=== PATIENT | male | born 1950 | race Caucasian/White ===

== ENCOUNTER → 2023-02-06 | Outpatient (CLI) | payer MEDICARE, OTHER, SELFPAY ==
[2023-02-06 12:13] LABS: Thyroid Stim Hormone (TSH) 1.95 uIU/mL (0.358-3.74)
== END | disposition home or self-care (01) ==
LOC: LAB 10:49
PROVIDERS: Referring Provider Internal Medicine Cardiovascular Disease; Visit Provider Internal Medicine Cardiovascular Disease
DX: R00.1 Bradycardia, unspecified (principal); I48.91 Unspecified atrial fibrillation; R94.31 Abnormal electrocardiogram [ECG] [EKG]
CPT/HCPCS: 36415; 84443

== ENCOUNTER → 2023-03-09 | Outpatient (CLI) | payer MEDICARE, OTHER, SELFPAY ==
--- NOTE | 2023-03-09 06:44 | ECHOD_ITS ---
Reason For Study: Abnormal EKG Procedure This was a 2D Doppler, Color Flow transthoracic echocardiogram. Exam performed in department. Left Ventricle Normal LV size. Left ventricular systolic function is normal. The estimated ejection fraction is 60 %. Unable to assess diastolic dysfunction due to arrhythmia. No regional wall motion abnormalities noted. Right Ventricle Normal RV size. Normal systolic function. Atria There is moderate biatrial dilatation. Bubble contrast study negative for right to left interatrial shunt. Mitral Valve Mild (1+) mitral valve insufficiency. Tricuspid Valve Normal tricuspid valve. Mild to moderate (1-2+) tricuspid valve insufficiency. Normal pulmonary artery pressure. Aortic Valve Trisinus/trileaflet aortic valve. Mild diffuse aortic valve thickening. There is no aortic stenosis. Pulmonic Valve The pulmonic valve is not well visualized. Great Vessels Normal aortic root. Pericardium/Pleural No pericardial effusion. Medication 22 gauge I.V. with prn adaptor inserted into right arm. Performed a rapid injection of agitated mix of 9 cc saline and 1cc air to assess for atrial septal defect. MMode/2D Measurements & Calculations LVIDd: 4.3 cm IVSd: 0.97 cm Ao root diam: 3.2 cm LVIDs: 2.7 cm LVPWd: 1.00 cm LA dimension: 3.8 cm RVDd: 3.4 cm FS: 37.9 % LAV(MOD-bp): 84.0 ml LVAd ap4: 29.0 cm2 SV(MOD-sp4): 51.4 ml LAV(MOD-bp) Indexed: 42.7 ml/m2 LVLd ap4: 8.0 cm LAV(MOD-sp2): 90.9 ml EDV(MOD-sp4): 84.9 ml LAV(MOD-sp4): 70.8 ml EDV(sp4-el): 89.9 ml LVAs ap4: 16.6 cm2 LVLs ap4: 6.8 cm ESV(MOD-sp4): 33.5 ml ESV(sp4-el): 34.5 ml EF(MOD-sp4): 60.5 % EF(sp4-el): 61.7 % SV(sp4-el): 55.4 ml LA A4 area: 23.7 cm2 RA A4 area: 21.7 cm2 TAPSE: 1.6 cm Time Measurements MV dec time: 0.16 sec Doppler Measurements & Calculations MV E max emmett: 83.0 cm/sec Lat Peak E' Emmett: 11.3 cm/sec Med Peak E' Emmett: 10.5 cm/sec MV A max emmett: 23.5 cm/sec E/E' lat: 7.3 E/E' med: 7.9 MV E/A: 3.5 MV V2 max: 85.5 cm/sec MV P1/2t max emmett: 82.4 cm/sec Ao V2 max: 91.4 cm/sec MV max P.9 mmHg MV P1/2t: 57.3 msec Ao max P.3 mmHg MV V2 mean: 36.2 cm/sec Ao V2 mean: 64.8 cm/sec MV mean P.73 mmHg MV dec slope: 421.3 cm/sec2 Ao mean P.9 mmHg MV V2 VTI: 24.8 cm MVA(P1/2t): 3.8 cm2 Ao V2 VTI: 22.5 cm AV (velocity ratio): 0.76 LV V1 max: 75.1 cm/sec PA V2 max: 52.9 cm/sec TR max emmett: 198.6 cm/sec LV V1 max P.3 mmHg TR max P.8 mmHg LV V1 mean P.2 mmHg LV V1 mean: 50.4 cm/sec LV V1 VTI: 17.0 cm ECHO/Echo Complete Interpretation Summary The estimated ejection fraction is 60 %. Mild (1+) mitral valve insufficiency. Bubble contrast study negative for right to left interatrial shunt. There is moderate biatrial dilatation. Mild to moderate (1-2+) tricuspid valve insufficiency. Ordering Physician: Khoa Goldstein Referring Physician: Khoa Goldstein Performed By: Rishabh Kelly RCS
--- NOTE | 2023-03-13 15:47 | STRESSREP ---
Stress Test Report Date: 03/09/2023 Procedure: Exercise tolerance test/imaging study Indications: Abnormal ECG Consent: Per the patient Procedure: The patient exercised on a Prabhjot protocol for 8 minutes and 30 seconds achieving a peak heart rate of 171 bpm (116% predicted maximal heart rate) with a peak blood pressure 138/80 mmHg and a peak MET capacity of 10.4 METs. The baseline ECG demonstrated atrial fibrillation. The peak exercise ECG demonstrated no ischemic changes. The functional capacity was considered good. There was no complaint of chest discomfort during exercise or recovery. The examination was discontinued secondary to target heart rate being achieved. The patient was injected with 11.7 mCi of technetium 99m Cardiolite and subsequently rest SPECT Cardiolite nuclear imaging was obtained in the horizontal long, vertical long, and short axis views. Post-exercise, the patient was injected with 34.2 mCi of technetium 99m Cardiolite and subsequently stress SPECT Cardiolite nuclear imaging was obtained in the horizontal long, vertical long, and short axis views. A gated Cardiolite study at peak stress was obtained. Rest and stress SPECT Cardiolite nuclear imaging status post realignment, normalization, and attenuation correction, demonstrates a mild inferior and apical reversible defect. There is end systolic thickening and brightening. The gated Cardiolite study demonstrates myocardial thickening and inward wall motion. The reported LVEF is 57%. Impression: 1. Technically adequate (percent predicted maximal heart rate greater than 85%) exercise tolerance test 2. Peak exercise ECG with no ischemic changes 3. Rest and stress SPECT Cardiolite nuclear imaging demonstrate possible mild inferior and apical ischemia. 5. The gated Cardiolite study reports an LVEF of 57%. This note was generated with [employer] software. It may contain incorrect words, spelling, and punctuation that were not noted in checking the note before signing.
== END | disposition home or self-care (01) ==
LOC: CVS 06:42
PROVIDERS: Referring Provider Internal Medicine Cardiovascular Disease; Visit Provider Internal Medicine Cardiovascular Disease
DX: R94.31 Abnormal electrocardiogram [ECG] [EKG] (principal); I48.91 Unspecified atrial fibrillation; R00.1 Bradycardia, unspecified
CPT/HCPCS: 78452; 93017; 93306; A9500; A4216

== ENCOUNTER → 2023-04-10 | Outpatient (CLI) | payer MEDICARE, OTHER, SELFPAY ==
[2023-04-10 08:47] LABS: Cholesterol 176 mg/dL (200); High Density Lipoprotein 67 mg/dL; Triglycerides 73 mg/dL; Very Low Density Lipoprotein 15 mg/dL (5-40)
== END | disposition home or self-care (01) ==
LOC: LAB 07:47
PROVIDERS: Referring Provider Internal Medicine Cardiovascular Disease; Visit Provider Internal Medicine Cardiovascular Disease
DX: E78.5 Hyperlipidemia, unspecified (principal)
CPT/HCPCS: 36415; 80061

== ENCOUNTER → 2023-05-30 | Outpatient (CLI) | payer MEDICARE, OTHER, SELFPAY | END | disposition home or self-care (01) | LOC: SL 19:41 | PROVIDERS: Referring Provider Nurse Practitioner Family; Visit Provider Nurse Practitioner Family | DX: G47.10 Hypersomnia, unspecified (principal); I48.91 Unspecified atrial fibrillation; I34.0 Nonrheumatic mitral (valve) insufficiency; I07.1 Rheumatic tricuspid insufficiency | CPT/HCPCS: 95810 ==

== ENCOUNTER 2023-06-26 08:10 | Day surgery (SDC) | payer MEDICARE, OTHER, SELFPAY ==
--- NOTE | 2023-06-08 12:50 | PCM.HP.BLA ---
History and Physical Date of Admission: 06/26/23 This patient is here for Left heart catheterization. He continues to ride his bicycle 3 times a week, riding for 45 miles each time. He denies chest, arm, jaw, or neck discomfort. He denies palpitations. He denies bilateral lower extremity edema. He denies claudication. He states shortness of breath with activity such as increased exertion. He denies shortness of breath at rest, orthopnea, or PND. He denies chronic cough. He denies significant, sudden weight gain. He denies lightheadedness, dizziness, near-syncope, or syncope. He denies blood in urine, blood in stool, or epistaxis. He denies fever with chills. He denies myalgia. He denies fatigue. His exercise level has remained stable. Intake Vital Signs: See EMR Intake Visit Reasons: [facility] Card Painter Required: No Is patient in pain?: No Allergies No Known Allergies Allergy (Unverified 05/11/23 16:04) Medications See EMR [facility] Medical History Abnormal EKG Atrial fibrillation Bradycardia Irregular heart beat Pneumonia due to COVID-19 virus Surgical History History of colonoscopy Family History Mother Myocardial infarction, Onset Age: 86 Social History Smoking Status: Never smoker alcohol intake: never substance use type: does not use caffeine: Yes (occasionally) ROS Const Const: Positive for daytime sleepiness (2-3 naps per day) and other ( stops breathing at night); Negative for fatigue, weakness, headache(s), frequent falls, difficulty sleeping or excessive sweating Eyes Eyes: Negative for loss of peripheral vision, transient loss of vision, blurry vision, double vision or tunnel vision ENT ENT: Negative for headache(s), dizziness, Nosebleed/epistaxis or balance problems Cardio Chest Pain: No Palpitations: No Edema: None Muscle aches with walking: None Resp Respiratory: Positive for SOB with activity (With increased exertion); Negative for SOB at rest, SOB orthopnea\SOB lying down, Cough or paroxysmal nocturnal dyspnea GI GI: Negative nausea, vomiting, heartburn or black,tarry stools : Negative for hematuria Musc Musc: Negative for muscle aches/ myalgia, muscle weakness, joint pain or balance problems Skin Skin: Negative non-healing lesions, rash or unusual bruising Neuro Neuro: Negative for dizziness, lightheadedness, near syncope, syncope, frequent falls, headache(s), weakness, blurry vision, double vision or lack of coordination Daniel Hematologic/Lymphatic: Negative for easy bleeding or easy bruising Endo Endo: Negative for fatigue, excessive sweating or increased thirst/drinking Psych Psych: Negative for anxiety or depression Allergy Allergy/Immunology: Negative for hives and Negative for rash Cardiology Exam Const Appearance: cooperative, healthy appearing, comfortable and no acute distress Nutritional Appearance: average body habitus and well nourished Orientation: alert, awake and oriented x3 Head Head: normal to inspection Ears: hearing grossly normal bilaterally Nose: external nose normal Face and Sinus: face symmetric Mouth: moist mucous membranes Eyes General: appearance normal, both eyes and all related structures Eyelids: eyelids normal EOM: EOM intact bilaterally Neck Neck: normal visual inspection and no JVD Carotids: normal carotid upstroke Chest Chest inspection: normal inspection of the chest, symmetric chest movement and normal respiratory effort; Negative cough Auscultation: Bilateral: Clear to Auscultation Cardio Rate: regular rate Rhythm: regular rhythm Heart sounds: S1 normal and S2 normal; Negative rub, gallop or murmur GI GI: normal to inspection Neuro General: patient alert, patient awake, patient oriented x3 and CN's II-XI intact bilaterally Skin Skin: no rashes or lesions noted Extremities Pulses: Normal: Right Posterior Tibial Pulse, Left Posterior Tibial Pulse, Right Radial Pulse and Left Radial Pulse Lower Extremity Edema: None: Bilateral Psych Psychological: normal affect Supplemental Info Supplemental Information Stress Test from 03/09/2023: Impression: 1. Technically adequate (percent predicted maximal heart rate greater than 85%) exercise tolerance test 2. Peak exercise ECG with no ischemic changes 3. Rest and stress SPECT Cardiolite nuclear imaging demonstrate possible mild inferior and apical ischemia. 5. The gated Cardiolite study reports an LVEF of 57%. Echocardiogram 03/09/2023: Interpretation Summary The estimated ejection fraction is 60 %. Mild (1+) mitral valve insufficiency. Bubble contrast study negative for right to left interatrial shunt. There is moderate biatrial dilatation. Mild to moderate (1-2+) tricuspid valve insufficiency. Assessment and Plan Assessment and Plan (1) Atrial fibrillation: Status: Chronic Qualifiers: Atrial fibrillation type: persistent (not longstanding) Qualified Code(s): I48.19 - Other persistent atrial fibrillation Plan: He will proceed with electrophysiology evaluation. His twelve-lead ECG on 05/11/2023 shows atrial fibrillation at a rate of 66 bpm. He has a [id number] score of 1 (age). He will continue aspirin therapy. Depending on electrophysiology input and workup, he may require anticoagulation. (2) Abnormal nuclear stress test: Status: Acute Plan: Mild inferior and apical ischemia. Patient denies chest pain, but acknowledges shortness of breath with increased activity. He rides bicycle 3 times a week for 45 miles each. Discussed options with the patient. Continuing medical therapy with risk factor modification versus coronary angiography discussed with patient. Risks benefits alternatives of each explained. He understand these and wishes to have any coronary angiography. This will help assist in future atrial fibrillation evaluation workup as well. (3) Mitral regurgitation: Status: Chronic Plan: Mild mitral regurgitation on echocardiogram. Periodic echo and clinical surveillance. (4) Tricuspid regurgitation: Status: Chronic Plan: Mild to moderate tricuspid valve regurgitation. Periodic echo and clinical surveillance. (5) Hypersomnolence: Status: Acute Plan: He proceeded with sleep study on 05/30/2023 that did not meet criteria for presence of sleep apnea. He was noted have decreased sleep efficiency. He continue to follow with primary care provider for noncardiac evaluation.
--- NOTE | 2023-06-11 08:45 | RAD_ITS ---
STUDY: X-RAY CHEST REASON FOR EXAM: Male, 72 years old. Pre-operative: [facility] TECHNIQUE: PA and lateral views of the chest. COMPARISON: None. FINDINGS: The lungs are clear and expanded. There is no demonstrated pleural abnormality. Normal size heart. Normal mediastinum and jim. Normal visualized pulmonary arteries. Normal visualized aortic arch and descending thoracic aorta. Normal visualized thoracic spine. Normal visualized ribs, clavicles, and shoulders. There is no demonstrated abnormality of the visualized soft tissue structures of the upper abdomen. RAD/Chest PA and Lateral IMPRESSION: Normal x-ray examination of the chest. Electronically Signed: Kimani Greene MD at 22:07 [facility] ,
[2023-06-11 09:17] LABS: Prothrombin Time (Protime)PT. 13.2 SECONDS (11.7-14.9)
[2023-06-11 09:27] LABS: Absolute Lymphocyte Count 1.52 X10^3/uL (0.83-4.51); Basophil# 0.05 X10^3/uL; Basophil% 0.8 % (0-1); Eosinophil# 0.25 X10^3/uL; Eosinophils% 3.9 % (0-5); Hematocrit 48.2 % (40-54); Hemoglobin 16.1 g/dL (13.0-16.5); Lymphocyte # 1.52 X10^3/ul (0.83-4.51); Lymphocyte % 23.8 % (19-41); Mean Corp Hgb Conc 33.4 g/dL (32-36); Mean Corpuscular Hgb 30.7 pg (27.0-32.0); Mean Platelet Vol. 9.5 fl (6.2-12.0); Monocyte# 0.59 X10^3/uL; Monocyte% 9.2 % (0-10); NRBC Flagged by Analyzer 0 % (0-5); Neutrophil # 3.98 X10^3/uL (2.7-7.7); Neutrophil % 62.1 % (47-70); Platelet Count 234 K/mm3 (150-450); RBC Distribution Width CV 13.1 % (11.6-14.6); RBC Distribution Width SD 44.2 fl (35.1-43.9); Red Blood Count 5.24 M/mm3 (4.6-6.2); White Blood Count 6.4 K/mm3 (4.4-11.0)
[2023-06-11 10:03] LABS: Anion Gap 4 (5-15); BUN 15 mg/dL (7-18); BUN/Creat Ratio 16.3 RATIO (10-20); Calcium,Total 8.3 mg/dL (8.5-10.1); Chloride 109 mmol/L (98-107); Creatinine, Serum 0.92 mg/dL (0.70-1.30); EST Glomerular Filtration Rate 85 mL/min (>60); Est Glom Filt Rate - Afr Amer 103 mL/min (>60); Glucose 106 mg/dL (74-106); Potassium 4.1 mmol/L (3.5-5.1); Sodium Level 143 mmol/L (136-145)
[2023-06-22 07:23] VITALS: BMI 24.7
--- OUTSIDE RECORDS SUMMARY | 2023-06-26 08:34 | XMS RPT_ITS | CCD ---
Author Name Unknown Address [address] [place] [address] Organization [facility] Care Team Providers Care Electrophysiology Technologist Name Role Phone TRENA BAKER, DR PRICE Primary Care Physician [phone] TRENA BAKER, DR PRICE Attending Unavailable TRENA BAKER, DR PRICE Primary Care Unavailable TRENA BAKER, DR PRICE Attending Unavailable TRENA BAKER, DR PRICE Primary Care Unavailable DARYL SANTILLAN, DR PINA Attending Viraj ALBRECHT DO, DR PRICE Primary Care Unavailable Unavailable Primary Care Provider THOMAS Nance Unavailable CORAZON HAYES Attending Unavailable DEE ALBRECHT Primary Care Unavailable Medications Current Medications Medication Drug Class(es) Dates Sig (Normalized) Sig (Original) acetaminophen 325 mg oral capsule (3 sources) Start: 03-31-2021 take 1 capsule by mouth every four hours as needed Tylenol 325 mg oral capsule Dose : 650 mg =, Oral, q4h, PRN TEMP greater than 38.6 degrees Celsius, 0 Refill(s) Start Date: 03/31/21 Status: Ordered aspirin 325 mg oral tablet (4 sources) Platelet Aggregation Inhibitor, Nonsteroidal Anti-inflammatory Drug Start: 03-31-2021 aspirin 325 mg oral tablet Dose : 325 mg = 1 tab(s), Oral, Daily, # 30 tab(s), 0 Refill(s), other reason (Rx) Start Date: 03/31/21 Status: Ordered Completed/Discontinued Medications Medication Drug Class(es) Dates Sig (Normalized) Sig (Original) cholecalciferol 0.25 mg oral capsule (1 source) Vitamin D Cholecalciferol, Vitamin D3, 250 mcg (10,000 unit) cap Take by mouth. 0 Active Problems Problem Classification Problem Date Documented Da te Episodic/Chronic Cardiac dysrhythmias (4 sources) Cardiac arrhythmia; Translations: [Cardiac arrhythmia, unspecified] Onset: 05-28-2023 Chronic Cardiac dysrhythmias (5 sources) Bradycardia; Translations: [Bradycardia, unspecified] Onset: 05-28-2023 03-28-2021 Episodic Diabetes mellitus without complication (4 sources) Hyperglycemia; Translations: [Hyperglycemia, unspecified] 03-28-2021 Episodic Heart valve disorders (4 sources) Mitral valve regurgitation; Translations: [Nonrheumatic mitral (valve) insufficiency] Onset: 05-28-2023 05-28-2023 Chronic Other liver diseases (2 sources) Elevated liver enzymes level 01-10-2022 Episodic Other liver diseases (1 source) Enzyme level - finding; Translations: [Abnormal levels of other serum enzymes] Episodic Other screening for suspected conditions (not mental disorders or infectious disease) (5 sources) Encounter for screening for malignant neoplasm of colon; Translations: [Encounter for screening for malignant neoplasm of prostate] Onset: 09-04-2022 Episodic Pneumonia (except that caused by tuberculosis or sexually transmitted disease) (1 source) Bacterial pneumonia; Translations: [Unspecified bacterial pneumonia] 05-28-2023 Episodic Residual codes; unclassified (2 sources) Hypersomnia; Translations: [Hypersomnia, unspecified] Onset: 05-28-2023 05-28-2023 Chronic Residual codes; unclassified (1 source) Other specified personal risk factors, not elsewhere classified; Translations: [At risk for stroke] Onset: 06-14-2023 Episodic Unclassified (9 sources) Patient encounter status 01-10-2022 Unclassified (3 sources) Vaccination needed 01-10-2022 Unclassified (1 source) Other persistent atrial fibrillation; Translations: [Persistent atrial fibrillation (HCC)] Onset: 06-14-2023 Results Test Name Value Interpretation Reference Range Facil ity Vital Signs Date Time Vital Sign Value Performing Clinician Roxana simmons 09-04-2022 12:25-0400 Diastolic Blood Pressure Non-Invasive [address] SILVANA BRITO MD [facility] 09-04-2022 12:25-0400 Heart rate 62 /min DR SILVANA BRITO MD [facility] 09-04-2022 12:25-0400 Respiratory rate 18 /min DR SILVANA BRITO MD [facility] 09-04-2022 12:25-0400 Systolic Blood Pressure Non-Invasive [address] SILVANA BRITO MD [facility] 09-04-2022 12:20-0400 Diastolic Blood Pressure Non-Invasive [address] SILVANA BRITO MD [facility] 09-04-2022 12:20-0400 Heart rate 70 /min DR SILVANA BRITO MD [facility] 09-04-2022 12:20-0400 Respiratory rate 18 /min DR SILVANA BRITO MD [facility] 09-04-2022 12:20-0400 Systolic Blood Pressure Non-Invasive [address] SILVANA BRITO MD [facility] 09-04-2022 12:15-0400 Diastolic Blood Pressure Non-Invasive [address] SILVANA BRITO MD [facility] 09-04-2022 12:15-0400 Heart rate 72 /min DR SILVANA BRITO MD [facility] 09-04-2022 12:15-0400 Respiratory rate 18 /min DR SILVANA BRITO MD [facility] 09-04-2022 12:15-0400 Systolic Blood Pressure Non-Invasive [address] SILVANA BRITO MD [facility] 09-04-2022 12:01-0400 Body temperature 97.16 [degF] DR SILVANA BRITO MD [facility] 09-04-2022 11:55-0400 Heart rate 0 /min DR SILVANA BRITO MD [facility] 09-04-2022 11:55-0400 Respiratory Rate - Anes 13 br/min DR SILVANA BRITO MD [facility] 09-04-2022 11:50-0400 Heart rate 0 /min DR SILVANA BRITO MD [facility] 09-04-2022 11:50-0400 Respiratory Rate - Anes 0 br/min DR SILVANA BRITO MD [facility] 09-04-2022 11:25-0400 Body temperature 97.34 [degF] DR SILVANA BRITO MD [facility] 09-04-2022 11:22-0400 Body height [address] SILVANA BRITO MD [facility] 09-04-2022 11:22-0400 Body weight 72.[address] SILVANA BRITO MD [facility] 09-04-2022 11:22-0400 Body weight 23.21 kg/m2 DR SILVANA BRITO MD [facility] Encounters Encounter Date Encounter Type Care Provider Facility Start: 06-15-2023 End: 06-15-2023 ambulatory [facility] Facility:Yousif patel Start: 05-28-2023 Chart abstracting [facility] Start: 01-02-2023 End: 01-03-[address] DEE ALBRECHT DO Facility:B Start: 01-02-2023 End: 01-02-[address] DEE ALBRECHT DO [facility] Start: 09-04-2022 End: 09-04-[address] SILVANA BRITO MD Facility:[facility] Start: 09-04-2022 End: 09-04-[address] SILVANA BRITO MD [facility] Start: 01-10-2022 End: 01-11-[address] EDE ALBRECHT DO Facility:[facility] Start: 01-10-2022 End: 01-10-[address] DEE ALBRECHT DO [facility] Procedures Date Procedure Procedure Detail Performing Clinician Start: 09-04-[address] SILVANA BRITO MD Colonoscopy DR SILVANA COOMBS MD Lipoma (disorder) DR SILVANA BRITO MD Plan of Treatment Date Care Activity Detail Author Start: 02-23-2023 Influenza vaccination Influenza Vacc ine (#1) [facility] Start: 06-25-2022 Advance Directive Discussion Advance Directive Discussion [facility] Start: 06-25-2022 Depression Assessment Depression Ass essment [facility] Start: 2014 Pneumococcal Vaccine : 65+ (1 - PCV) Pneumococcal Vaccine: 65+ (1 - PCV) [facility] Start: 2009 RSV Vaccine (1 - 1-d ose 60+ series) RSV Vaccine (1 - 1-dose 60+ series) [facility] Start: 1999 Shingrix Vaccine (1 of 2) Shingrix V accine (1 of 2) [facility] Start: 1994 Cologuard (FIT-DNA) Cologuard (FIT-D NA) [facility] Start: 1994 Colonoscopy Colonoscopy [facility] Start: 1994 Colorectal Cancer Screening Colorectal Cancer Screening [facility] Start: [address] Colonography [facility] Start: 1994 Diabetes Screening Diabetes Screenin g [facility] Start: 1994 Fecal Occult Blood Fecal Occult Bloo d [facility] Start: 1994 [facility] Start: 1984 Lipid 1996 panel - S gavin or Plasma Lipid Screening [facility] Start: 1968 Urine microalbumin profile DTa P,Tdap,Td Vaccine (1 - Tdap) [facility] Start: 1967 Hepatitis C Screening Hepatitis C Sc waqas [facility] Start: 1949 Covid-19 Vaccine (#1) Covid-19 Vacci ne (#1) [facility] Immunizations Immunization Date Immunization Notes Care Provider Stephanie rice 01-02-2023 Pneumococcal conjuga te PCV20, polysaccharide [id number] conjugate, adjuvant, PF; Translations: [Prevnar 20] DR DEE ALBRECHT DO [facility] 07-11-2022 Pneumococcal conjuga te PCV20, polysaccharide [id number] conjugate, adjuvant, PF; Translations: [Prevnar 20] DR SILVANA BRITO MD [facility] 05-01-2022 tetanus toxoid, redu edi diphtheria toxoid, and acellular pertussis vaccine, adsorbed; Translations: [Boostrix (Tdap)] DR SILVANA BRITO MD [facility] 08-29-2021 COVID-19, mRNA, LNP- S, PF, 100 mcg or 50 mcg dose; Translations: [Moderna COVID-19 Vaccine] DR DEE ALBRECHT DO [facility] 07-05-2021 COVID-19, mRNA, LNP- S, PF, 100 mcg or 50 mcg dose; Translations: [Moderna COVID-19 Vaccine] DR DEE ALBRECHT DO [facility] 08-09-2015 tetanus and diphther ia toxoids, adsorbed, preservative free, for adult use (2 Lf of tetanus toxoid and 2 Lf of diphtheria toxoid) DR DEE ALBRECHT DO [facility] Payers Date Payer Category Payer Private Health Insurance [id number] 2014 Private Health Insurance UNITED MALDIVIAN UNITED MALDIVIAN SUPPLEMENT [id number] 2014-Present [phone] [address] [place] [address] Indemnity [id number] 2014 Medicare [id number] 2014 Medicare MEDICARE MEDICAR E A AND B [id number] 2014-Present [phone] [address] [address] [place] [address] Medicare [id number] 1949 Unknown [id number] 1949 Unknown [id number] 1949 Unknown [id number] Social History Date Type Detail Facility Start: 03-21-2021 Tobacco smoking status Never s moked tobacco (finding) [facility] Sex Assigned At Male [facility] Tobacco smoking stat [facility] Tobacco smoking consumption unknown [facility] Start: 1950 Sex Assigned At Not on file [facility] Gender identity Not on file [facility] in Functional Status Date Assessment Result Facility 09-04-2022 Functional Status Dangle, Up ad juan [facility] 09-04-2022 Functional Status Maintained, More than 8 hours [facility] Mental Status Date Assessment Result Facility 09-04-2022 Mental Status Oriented x 4 [facility] 09-04-2022 Mental Status [facility] Clinical Notes 09-04-2022 to 06-15-2023 Note Date & Type Note Facility 06-15-2023 Note HNO ID: [id number] Author: Corazon Hayes MD Service: ? Author Type: Physician Type: Progress Notes Filed: 06/15/2023 6:23 PM Note Text: PRIMARY CARE PHYSICIAN: Dee Albrecht DO [address] [place] [address] REFERRING PHYSICIAN: Thomas Dumont, KARLA [address] [facility] [address] Patient Care Team: Dee Albrecht DO as PCP - General (Family Medicine) Thomas Dumont as Nurse Practitioner (Cardiology) Khoa Goldstein MD as Specialty Advertising Manager (Cardiology) CHIEF COMPLAINT: Evaluation of arrhythmia HISTORY OF PRESENT ILLNESS: Mr. Renteria is a 72 year old male who presents today for evaluation of atrial fibrillation. He was taking magnesium supplements due to leg cramping, he cycles frequently. He thinks maybe the magnesium at higher dosages might have caused or contributed to the atrial fibrillation. He was diagnosed with the atrial fibrillation in about December, he had seen his PCP, found to have irregular heart rhythm. Generally unaware of his heart rhythm, was not aware of the atrial fibrillation. He denies chest pain, shortness of breath, orthopnea, palpitations, PND, syncope. He states he had sleep study recently ([facility]) and he does not have sleep apnea. I have confirmed and edited as necessary, the PFSH and ROS obtained by others. PAST MEDICAL HISTORY Diagnosis Date Abnormal EKG At risk for stroke Atrial fibrillation with slow ventricular response (HCC) 06/15/2023 Bradycardia Mild mitral regurgitation Moderate tricuspid regurgitation Persistent atrial fibrillation (HCC) Pneumonia, viral PAST SURGICAL HISTORY Procedure Laterality Date COLONOSCOPY SCREENING EXCISE LESN NECK/CHEST,SUBCUTAN Left left chest/armpit region subcutaneous fatty tumor (benign) removal PAST SURGICAL HISTORY OF hx of colonoscopy TONSILLECTOMY AND ADENOIDECTOMY SOCIAL HISTORY Social History Tobacco Use Smoking status: Former Packs/day: 0.25 Years: 10.00 Additional pack years: 0.00 Total pack years: 2.50 Types: Cigarettes Smokeless tobacco: Never Tobacco comments: Quit 40 yrs ago Vaping Use Vaping Use: Never used Substance Use Topics Alcohol use: Not Currently Drug use: Never FAMILY HISTORY Problem Relation Age of Onset Sudden Cardiac Mother 85 suddenly, so unclear if AK or cardiac arrhythmia Hypertension Mother Cancer Mother female cancer Stroke Father Lung Cancer Father some type of lung tumor that was resected No Known Problems Sister No Known Problems Sister No Known Problems Brother No Known Problems Brother No Known Problems Brother Human Immunodeficiency Virus Brother ALLERGIES: ALLERGIES No Known Allergies MEDICATIONS: aspirin 325 mg tablet Take 325 mg by mouth every other day. multivitamin (DAILY VITAMIN ORAL) Take 1 tablet by mouth once daily. lutein-zeaxanthin 25-5 mg cap Take 1 tablet by mouth once daily. aspirin, enteric coated (ASPIRIN, ENTERIC COATED) 81 mg EC tablet Take 81 mg by mouth every other day. REVIEW OF SYSTEMS: Review of Systems Constitutional: Negative for chills, fever, malaise/fatigue and weight loss. Respiratory: Negative for cough, hemoptysis, sputum production, shortness of breath and wheezing. Cardiovascular: Negative for chest pain, palpitations, orthopnea, claudication, leg swelling and PND. Gastrointestinal: Negative for abdominal pain, blood in stool, melena, nausea and vomiting. Genitourinary: Negative for dysuria and hematuria. Musculoskeletal: Negative for falls and myalgias. Skin: Negative for rash. Neurological: Negative for dizziness, focal weakness, seizures and loss of consciousness. PHYSICAL EXAMINATION: BP 117/78 Pulse 73 Ht 5' 11 (1.80m) Wt 175 lb (79.4kg) SpO2 97% BMI 24.42 kg/(m2). Physical Exam Vitals reviewed. Constitutional: General: He is not in acute distress. Appearance: Normal appearance. HENT: Head: Normocephalic and atraumatic. Cardiovascular: Rate and Rhythm: Bradycardia present. Rhythm irregularly irregular. Heart sounds: Normal heart sounds, S1 normal and S2 normal. No murmur heard. No friction rub. Pulmonary: Effort: Pulmonary effort is normal. No respiratory distress. Breath sounds: Normal breath sounds. No wheezing, rhonchi or rales. Musculoskeletal: Cervical back: Neck supple. Right lower leg: No edema. Left lower leg: No edema. Skin: General: Skin is warm and dry. Neurological: General: No focal deficit present. Mental Status: He is alert and oriented to person, place, and time. Psychiatric: Mood and Affect: Mood normal. Behavior: Behavior normal. Thought Content: Thought content normal. CARDIOVASCULAR MEDICINE TESTING: Electrocardiogram: Atrial fibrillation with slow ventricular response, average 43 bpm; normal QRS duration 106 ms; QTc 365 ms I have personally reviewed the Electrocardiogram. 1. Per (more content not included)... [facility] 09-04-2022 Hospital Discharg e instructions Patient Education 09/04/2022 12:05:48 Colonoscopy, Adult, Care After Colonoscopy, Adult, Care After This sheet gives you information about how to care for yourself after your procedure. Your health care provider may also give you more specific instructions. If you have problems or questions, contact your health care provider. What can I expect after the procedure? After the procedure, it is common to have: A small amount of blood in your stool for 24 hours after the procedure. Some gas. Mild abdominal cramping or bloating. Follow these instructions at home: General instructions For the first 24 hours after the procedure: ?Do not drive or use machinery. ?Do not sign important documents. ?Do not drink alcohol. ?Do your regular daily activities at a slower pace than normal. ?Eat soft, zvhd-hb-rppbcx foods. Take qasm-vbj-nwqseqc or prescription medicines only as told by your health care provider. Relieving cramping and bloating Try walking around when you have cramps or feel bloated. Apply heat to your abdomen as told by your health care provider. Use a heat source that your health care provider recommends, such as a moist heat pack or a heating pad. ?Place a towel between your skin and the heat source. ?Leave the heat on for 20 30 minutes. ?Remove the heat if your skin turns bright red. This is especially important if you are unable to feel pain, heat, or cold. You may have a greater risk of getting burned. Eating and drinking Drink enough fluid to keep your urine pale yellow. Resume your normal diet as instructed by your health care provider. Avoid heavy or fried foods that are hard to digest. Avoid drinking alcohol for as long as instructed by your health care provider. Contact a health care provider if: You have blood in your stool 2 3 days after the procedure. Get help right away if: You have more than a small spotting of blood in your stool. You pass large blood clots in your stool. Your abdomen is swollen. You have nausea or vomiting. You have a fever. You have increasing abdominal pain that is not relieved with medicine. Summary After the procedure, it is common to have a small amount of blood in your stool. You may also have mild abdominal cramping and bloating. For the first 24 hours after the procedure, do not drive or use machinery, sign important documents, or drink alcohol. Contact your health care provider if you have a lot of blood in your stool, nausea or vomiting, a fever, or increased abdominal pain. This information is not intended to replace advice given to you by your health care provider. Make sure you discuss any questions you have with your health care provider. Document Released: 01/23/2005 Document Revised: 04/03/2018 Document Reviewed: 08/22/2016 [employer] Patient Education 2020 [email or web address] 09/04/2022 12:05:43 Monitored Anesthesia Care, Care After Monitored Anesthesia Care, Care After These instructions provide you with information about caring for yourself after your procedure. Your health care provider may also give you more specific instructions. Your treatment has been planned according to current medical practices, but problems sometimes occur. Call your health care provider if you have any problems or questions after your procedure. What can I expect after the procedure? After your procedure, you may: Feel sleepy for several hours. Feel clumsy and have poor balance for several hours. Feel forgetful about what happened after the procedure. Have poor judgment for several hours. Feel nauseous or vomit. Have a sore throat if you had a breathing tube during the procedure. Follow these instructions at home: For at least 24 hours after the procedure: Have a responsible adult stay with you. It is important to have someone help care for you until you are awake and alert. Rest as needed. Do not: ?Participate in activities in which you could fall or become injured. ?Drive. ?Use heavy machinery. ?Drink alcohol. ?Take sleeping pills or medicines that cause drowsiness. ?Make important decisions or sign legal documents. ?Take care of children on your own. Eating and drinking Follow the diet that is recommended by your health care provider. If you vomit, drink water, juice, or soup when you can drink without vomiting. Make sure you have little or no nausea before eating solid foods. General instructions Take iixd-iur-mxlxqei and prescription medicines only as told by your health care provider. If you have sleep apnea, surgery and certain medicines can increase your risk for breathing problems. Follow instructions from your health care provider about wearing your sleep device: ?Anytime you are sleeping, including during daytime naps. ?While taking prescription pain medicines, sleeping medicines, or medicines that make you drowsy. If you smoke, do not smoke without supervision. Keep all follow-up visits as told by your health care provider. This is important. Contact a health care provider if: You keep feeling nauseous or you keep vomiting. You feel light-headed. You develop a rash. You have a fever. Get help right away if: You have trouble breathing. Summary For several hours after your procedure, you may feel sleepy and have poor judgment. Have a responsible adult stay with you for at least 24 hours or until you are awake and alert. This information is not intended to replace advice given to you by your health care provider. Make sure you discuss any questions you have with your health care provider. Document Released: 10/01/2016 Document Revised: 09/09/2018 Document Reviewed: 10/01/2016 [employer] Patient Education 2020 [employer] Follow Up Care 09/01/2022 08:56:05 With:SILVANA BRITO Address: [address] [address]- [phone] Business (1) When: Unknown Comments:OFFICE WILL CALL WITH BIOPSY RESULTS. [facility] BLYTHE ADMISSION HISTORY AN D PHYSICIAL CHIEF COMPLAINT: HISTORY OF PRESENT ILLNESS: REVIEW OF SYSTEMS: ACTIVE PROBLEMS: (8) Bradycardia ([id number]) Elevated liver enzymes (5150927538) Hyperglycemia (020631184) Need for vaccination ([id number]) Screening for colon cancer (576330280) Screening for metabolic disorder (962154600) Screening for prostate cancer (375236120) SOB - Shortness of breath (877014909) MEDICATIONS: Active Inpt Meds: None Active PRN Meds: None One Time Meds: None Active IV Meds: Lactated Ringers Infusion 1,000 mL (LR 1,000 mL) Start: 09/04/22 11:20:00 EDT, Rate: 50 mL/hr, 09/04/22 11:20:00 EDT ALLERGIES: (1) NKA FAMILY HISTORY: SOCIAL HISTORY: PHYSICAL EXAM: VITALS: EkgslhSofmUUJvwtiIJRiY2HTV9BqaaFc(kg) 09/04 11:2536.3--[id number]/13 72.7 24 Hr Tmax: 36.3 at 09/04 11:25 36 Hr Tmax: 36.3 at 09/04 11:25 Vital Signs are the last 5 in the past 48 hours. Weights display the last 5 within 7 days. Initial Wt: 09/04 72.7 kg 160 lb Current Wt: 09/04 72.7 kg 160 lb GENERAL: HEENT: CARDIOVASCULAR: RESPIRATORY: ABDOMEN: EXREMETIES: NEUROLOGICAL: PSYCHIATRIC: LABS: No 36hr Lab Data DIAGNOSTICS: IMPRESSION: PLAN: History and Physical Update I have examined the patient; reviewed the H&P and there are no changes to the H&P unless noted below. Future Appointments Appointment Date:01/02/2023 09:00:00 AM Scheduled Provider:DEE ALBRECHT DO Location:[facility] Appointment Type:PC OV Future Scheduled Tests Laboratory* Prostate Specific Antigen 01/08/23 * A1C Hemoglobin 01/08/23 * Complete Metabolic Panel 01/08/23 [facility] 03-13-2023 Summary of episode note Discharge Instructions Thank you for allowing [facility] to assist you with your healthcare needs. The following is importantdischarge information regarding your hospital visit. Your Care Team DEE ALBRECHT DO What to do next Scheduled Follow-Up Appointments Appointment Type When With Where Contact InformationPC OV 01/02/2023 09:00 AM EDT DEE ALBRECHT DO [address] [address] Follow Up Appointments Follow Up with SILVANA BRITO When Why: OFFICE WILL CALL WITH BIOPSY RESULTS. Where: [address] [address] [phone] Business (1) The Following Activity and Diet Have Been Ordered for You Discharge Activity - Ordered -- NO activity restrictions, 09/04/22 11:59:00 EDT Discharge Diet - Ordered -- Follow the post-operative/post-procedure diet instructions provided by your physician's office.,09/04/22 11:59:00 EDT The Following Equipment Has Been Ordered for You Discharge Home Equipment Discharge Wound Care - Ordered -- Follow the post-operative/post-procedure wound care instructions provided by your physician's office., 09/04/22 11:59:00 EDT Allergies NKA Medications Please ask your primary doctor or pharmacist before taking any other medication not listed, including over the counter drugs, herbal medications, vitamins and or supplements as they may interact withyour home medications. What How Much When Instructions Last Dose Unchanged acetaminophen (Tylenol 325 mg oral capsule) 650 Milligram by mouth Every 4 hours as needed for TEMP greater than 38.6 degrees Celsius Unchanged aspirin (aspirin 325 mg oral tablet) 1 tab(s) by mouth Every day Unchanged multivitamin (Multivitamin) 1 tab(s) by mouth Every day Please take this list to your next doctor s visit. Bring all medications you take, including over the counter medications, herbals and other supplements with you to your doctor s visit. Patients and families are reminded to discard old lists and to update any records with all medication providers or retail pharmacies. Education Materials Colonoscopy, Adult, Care After This sheet gives you information about how to care for yourself after your procedure. Your health care provider may also give you more specific instructions. If you have problems or questions, contact your health care provider. What can I expect after the procedure? After the procedure, it is common to have: A small amount of blood in your stool for 24 hours after the procedure. Some gas. Mild abdominal cramping or bloating. Follow these instructions at home: General instructions For the first 24 hours after the procedure: ? Do not drive or use machinery. ? Do not sign important documents. ? Do not drink alcohol. ? Do your regular daily activities at a slower pace than normal. ? Eat soft, tomv-fk-ovooul foods. Take lunx-wts-yzskqla or prescription medicines only as told by your health care provider. Relieving cramping and bloating Try walking around when you have cramps or feel bloated. Apply heat to your abdomen as told by your health care provider. Use a heat source that your healthcare provider recommends, such as a moist heat pack or a heating pad. ? Place a towel between your skin and the heat source. ? Leave the heat on for 20 30 minutes. ? Remove the heat if your skin turns bright red. This is especially important if you are unable to feel pain, heat, or cold. You may have a greater risk of getting burned. Eating and drinking Drink enough fluid to keep your urine pale yellow. Resume your normal diet as instructed by your health care provider. Avoid heavy or fried foods thatare hard to digest. Avoid drinking alcohol for as long as instructed by your health care provider. Contact a health care provider if: You have blood in your stool 2 3 days after the procedure. Get help right away if: You have more than a small spotting of blood in your stool. You pass large blood clots in your stool. Your abdomen is swollen. You have nausea or vomiting. You have a fever. You have increasing abdominal pain that is not relieved with medicine. Summary After the procedure, it is common to have a small amount of blood in your stool. You may also have mild abdominal cramping and bloating. For the first 24 hours after the procedure, do not drive or use machinery, sign important documents, or drink alcohol. Contact your health care provider if you have a lot of blood in your stool, nausea or vomiting, a fever, or increased abdominal pain. This information is not intended to replace advice given to you by your health care provider. Make sure you discuss any questions you have with your health care provider. Document Released: 01/23/2005 Document Revised: 04/03/2018 Document Reviewed: 08/22/2016 [employer] Patient Education 2020 [employer]. Monitored Anesthesia Care, Care After These instructions provide you with information about caring for yourself after your procedure. Your health care provider may also give you more specific instructions. Your treatment has been plannedaccording to current medical practices, but problems sometimes occur. Call your health care provider if you have any problems or questions after your procedure. What can I expect after the procedure? After your procedure, you may: Feel sleepy for several hours. Feel clumsy and have poor balance for several hours. Feel forgetful about what happened after the procedure. Have poor judgment for several hours. Feel nauseous or vomit. Have a sore throat if you had a breathing tube during the procedure. Follow these instructions at home: For at least 24 hours after the procedure: Have a responsible adult stay with you. It is important to have someone help care for you until youare awake and alert. Rest as needed. Do not: ? Participate in activities in which you could fall or become injured. ? Drive. ? Use heavy machinery. ? Drink alcohol. ? Take sleeping pills or medicines that cause drowsiness. ? Make important decisions or sign legal documents. ? Take care of children on your own. Eating and drinking Follow the diet that is recommended by your health care provider. If you vomit, drink water, juice, or soup when you can drink without vomiting. Make sure you have little or no nausea before eating solid foods. General instructions Take imeu-qpp-leysszo and prescription medicines only as told by your health care provider. If you have sleep apnea, surgery and certain medicines can increase your risk for breathing problems. Follow instructions from your health care provider about wearing your sleep device: ? Anytime you are sleeping, including during daytime naps. ? While taking prescription pain medicines, sleeping medicines, or medicines that make you drowsy. If you smoke, do not smoke without supervision. Keep all follow-up visits as told by your health care provider. This is important. Contact a health care provider if: You keep feeling nauseous or you keep vomiting. You feel light-headed. You develop a rash. You have a fever. Get help right away if: You have trouble breathing. Summary For several hours after your procedure, you may feel sleepy and have poor judgment. Have a responsible adult stay with you for at least 24 hours or until you are awake and alert. This information is not intended to replace advice given to you by your health care provider. Make sure you discuss any questions you have with your health care provider. Document Released: 10/01/2016 Document Revised: 09/09/2018 Document Reviewed: 10/01/2016 [employer] Patient Education 2020 [employer] Additional Information VACCINATE! IT SAVES LIVES! Members of the community who have not yet received the COVID-19 vaccine and would like to receive it can visit one of [facility] vaccine clinics. There are many vaccine clinic locations within the [facility]. For locations and available times, please visit https://gettheshot.coronavirus.[place].gov/. It is important to note that some COVID mobile vaccine clinics are held outdoors and may be canceled in rainy or stormy conditions. To learn more about pediatric vaccinations (ages 5-11), we invite you to visit the [facility] webpage. https://www.[email or web address].org/pages/3835-Bnwqv-Nikxjihijrd-Yzjtxfqxte-Glssa-Npj stions.htmlTo learn more about the COVID-19 vaccine, we invite you to visit the CDC website for a list of frequently asked questions. https://www.cdc.gov/coronavirus/2019-ncov/vaccines/faq.html [facility] Patient Portal Access Instructions: Stay connected with your healthcare team and access your personal medical information anytime with the [facility] Patient Portal.If you would like a full copy of your medical records, please contact the [facility] Medical Records Department, Sunday through Sunday between 8a.m. and 4:30p.m. Please follow the directions below to access the portal: 1.Access the email account you provided upon registration to the [facility].2.Look for an invitation email from [facility].3.Open the email and access the invitation link: Accept Invitation to [facility]4.Fill in the required burk to create your account. Sign into www.[facility] with your username and password that you created in the above steps to stay up to date. You can then view a summary of results, a summary of your visits, and the ability to download your summaries to your computer or send the information securely to a physician. Remember that your healthcare information is confidential, so carefully consider who you will allow to register on the [facility] Patient Portal for access to your information. You can also access the [employer] Patient Portal on the [employer]. Simply click on Health Records under [employer] and then click on the [facility] logo. HOW TO SAFELY DISPOSE OF PRESCRIPTION MEDICATIONS Please use one of the following methods to safely dispose of your unused medications. 1.Use a drug disposal kit: the drug disposal pouch allows you to safely discard your old and unuseddrugs. Ask your nurse to give you one when you are discharged.2.Visit a local take-back location: Many local pharmacies and police departments have programs that collect old and unwanted prescriptiondrugs. Call your local pharmacy or go to http://EagerPanda.Housekeep/7T6Mc6v to find one close to you.3.Make use of household items: Use cat litter or old coffee grounds to dispose medications if other options arenot available. Mix your drugs with these household products, seal them in an airtight container andthrow it into the garbage. Call [facility]: [phone] to be sure your drugs can be disposed of in this way. Some medicines may require a different approach.4.Never flush your medications down the toilet. IF YOU HAVE BEEN PRESCRIBED AN OPIOID FOR PAIN If you have been prescribed an opioid (such as hydrocodone, oxycodone or morphine), it is critical to understand the possible side effects and risks of opioid pain medications. Even when taken as directed, opioids can have several side effects including: Tolerance, meaning you might need to take more of a medication for the same pain relief. Nausea, vomiting and/or constipation. Sleepiness, dizziness, dry mouth, confusion, depression or itching. Physical dependence, meaning you have withdrawal symptoms when a medication is stopped, can develop within a few days. KNOW YOUR RESPONSIBILITIES It is important to know exactly how much and how often to take the opioid pain medications you are prescribed. Never take opioids in higher amounts or more often than prescribed. Do not combine opioids with alcohol or other drugs that cause drowsiness, such as benzodiazepines, also known as benzos, including diazepam and alprazolam, muscle relaxants or sleep aids. Never sell or share prescription opioids. This is illegal. Store opioids in a secure place and out of reach of others (including children, family, friends and visitors). The last page of this document has been signed and retained as a CHART COPY. Signatures Patient Education Materials Colonoscopy, Adult, Care After Monitored Anesthesia Care, Care After Medication Leaflets My discharge plan and instructions have been reviewed and explained to me and I,ARACELI RENTERIA understand my current condition and have read and understand these discharge instructions. I have received a written copy of the plan/instructions. If I have questions, I am aware that I should contact my doctor. 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 Respiratory function: lungs are clear to auscultation. Respiratory support: none. CV function: Normal rate. Cardiovascular support: none. Pain. Nausea status: denies nausea. Postoperative hydration status: within normal limits. Digitally Signed by TERESA VIEYRA on 09/04/2022 11:59 AM [facility]03-13-2023 Anesthesiology Consult note Patient: ARACELI RENTERIA Age: 72 years Sex: Male : 1950 Associated Diagnoses: None Author: TERESA VIEYRA Preoperative Information Time of last food or liquid consumption: 09/04/2022 08:00:00 Anesthesia history Patient's history: negative. Family's history: negative. Review of Systems Ear/Nose/Mouth/Throat: Negative. Respiratory: Shortness of breath. Cardiovascular: bradycardia. Gastrointestinal: Negative. Genitourinary: Negative. Endocrine: Negative. Musculoskeletal: Negative. Integumentary: Negative. Neurologic: Negative. Health Status Allergies: Allergic Reactions (Selected) NKA, Allergies (1) ActiveReaction NKANone Documented Current medications: (Selected) Inpatient Medications Ordered LR 1,000 mL: 50 mL/hr, Intravenous Prescriptions Prescribed aspirin 325 mg oral tablet: 325 mg, 1 tab(s), Oral, Daily, 30 tab(s), 0 Refill(s) Documented Medications Documented Multivitamin: 1 tab(s), Oral, Daily, 0 Refill(s) Tylenol 325 mg oral capsule: 650 mg, Oral, q4h, PRN: TEMP greater than 38.6 degrees Celsius, 0 Refill(s), Medications (1) Active Scheduled: (0) Continuous: (1) Lactated Ringers Infusion 1,000 mL 1,000 mL, Intravenous, 50 mL/hr PRN: (0) Problem list: Medical Bradycardia / SNOMED CT 95343535 / Confirmed Elevated liver enzymes / SNOMED CT 7158242496 / Confirmed Hyperglycemia / SNOMED CT 922522475 / Confirmed Screening for prostate cancer / SNOMED CT 713765749 / Confirmed Screening for metabolic disorder / SNOMED CT 241211494 / Confirmed Screening for colon cancer / SNOMED CT 158336656 / Confirmed Need for vaccination / SNOMED CT 4618007235 / Confirmed, Active Problems (8) Bradycardia Elevated liver enzymes Hyperglycemia Need for vaccination Screening for colon cancer Screening for metabolic disorder Screening for prostate cancer SOB - Shortness of breath Histories Past Medical History: Resolved None (647424745): Resolved. Acute hypoxic respiratory failure (2957975191): Resolved. Pneumonia due to COVID-19 virus (2300044590): Resolved. Generalized weakness (96225833): Resolved. Family History: Entire family history is negative. Procedure history: Colonoscopy ([id number]) on 09/04/2022 at 72 Years. Colonoscopy (455070760). Lipoma (067231771). Social History Social & Psychosocial Habits Alcohol 03/21/2021 Use: Never Substance Abuse 03/21/2021 Use: Never Tobacco 03/21/2021 Tobacco Use: Never (less than 100 in l Exposure to Tobacco Smoke Lives in non-smoking home Nutrition/Health 03/21/2021 Caffeine intake amount: Rarely . Physical Examination Vital Signs 09/04/2022 11:25 EDT Temperature Temporal Artery 36.3 DegC Peripheral Pulse Rate 69 bpm Respiratory Rate 18 br/min Systolic Blood Pressure Non-Invasive 107 mmHg Diastolic Blood Pressure Non-Invasive 72 mmHg Vital Signs(last 24 hrs) Last Charted Resp Rate 18 br/min (SEP 04 11:25) BOP342 mmHg (SEP 04 11:25) DBP72 mmHg (SEP 04 11:25) BMI23.21 (SEP 04 11:22) Measurements from flowsheet : Measurements 09/04/2022 11:22 EDT Height 177 cm Admission Weight 72.7 kg Weight Method Stated Hanna Body Weight 72.28 kg BSA Admission 1.89 Body Mass Index 23.21 kg/m2 Pain assessment: Pain Assessment 09/04/2022 11:25 EDT Primary Pain Intensity 0 Pain Scale Type 0-10 Pain scale . General: Alert and oriented. Airway: Normal temporomandibular joint mobility. Mallampati classification: II (soft palate, fauces, uvula visible). Head: Normocephalic. Dentition Evaluation: Own teeth. Neck: Supple. Respiratory: Lungs are clear to auscultation. Cardiovascular: Normal rate. Heart Sounds: Normal. Gastrointestinal: Soft. Musculoskeletal Normal range of motion. Integumentary: Intact. Neurologic: Alert, Oriented. Review / Management Results review: No qualifying data available , Lab results 09/04/2022 11:44 EDT Julian History and Physical 09/04/2022 11:41 EDT SN - Cul - Kind Specimen 09/04/2022 11:41 EDT SN - CAt - Case Attendee SN - CAt - Case Attendee SN - CAt - Case Attendee SN - CAt - Case Attendee SN - CAt - Case Attendee SN - CAt - Case Attendee SN - CAt - Case Attendee SN - CAt - Case Attendee SN - CAt - Role Performed Primary Surgeon SN - CAt - Role Performed Leaf Sucker Operator 1 SN - CAt - Role Performed MANAGER HOME HEALTHCARE SN - CAt - Role Performed Laboratory Monitor 09/04/2022 11:38 EDT Anesthesia Consent Signed Yes 09/04/2022 11:36 EDT Antecubital Right 09/04/2022 22 gauge Peripheral IV Activity: Insert new site Peripheral IV Dressing Condition: Clean, Dry, Intact Peripheral IV Dressing Activity: Applied, Transparent dressing Peripheral IV Line Status/Patency: Continuous infusion Peripheral IV Line Care: Secured with tape Peripheral IV Site Condition: No complications Peripheral IV Equipment: Extension set Peripheral IV Number of Attempts: 1 09/04/2022 11:34 EDT IV Present Present 09/04/2022 11:32 EDT Lactated Ringers Injection Begin Bag 1,000 mL mL 09/04/2022 11:25 EDT Temperature Temporal Artery 36.3 DegC Peripheral Pulse Rate 69 bpm Respiratory Rate 18 br/min Systolic Blood Pressure Non-Invasive 107 mmHg Diastolic Blood Pressure Non-Invasive 72 mmHg Primary Pain Intensity 0 Pain Scale Type 0-10 Pain scale Oxygen Therapy Room air Oxygen Saturation 95 % Abdomen Description Non-distended, Soft Abdomen Palpation Non-Tender Skin Temperature Warm Skin Description [place], Dry Skin Integrity Intact Neurological Symptoms Patient denies Extremity Movement Equal Characteristics of Speech Clear Level of Consciousness Alert Strength All Extremities Strong Tone All Extremities Normal Sensation All Extremities Intact Affect/Behavior Appropriate, Calm, Cooperative Orientation Oriented x 4 Allergies No Consent Form Signed Yes Patient Dressed In Hospital gown Pre-op Preparation Wedding ring(s) removed History & Physical On Chart Yes Bowel Prep Completed Yes Belongings At Bedside Rings Activity Status ADL Awake, Resting NPO Status Maintained, More than 8 hours Standard Safety ID band on, Call device within reach, Bed in low position, Wheels locked, Upper/Half-Length side-rails up Patient ID Band on and Verified Yes Implants Verified Yes Pacemaker/AICD Verified Yes Last Fluid Intake 09/03/2022 20:00 Last Food Intake 09/02/2022 17:00 Last Void 09/04/2022 11:00 09/04/2022 11:22 EDT Designated Person #1 We May Share PHI Designated Person #1 We May Share [facility] Designated Person #1 Relationship Spouse Height 177 cm Admission Weight 72.7 kg Weight Method Stated Hanna Body Weight 72.28 kg BSA Admission 1.89 Body Mass Index 23.21 kg/m2 Status N/A Sensory Deficits None Infectious Disease Symptoms Patient states no symptoms Infectious Disease Recent Exposure No Alcohol and Drug Use No Employee of Institutional Living No Health Care Employee No History of Exposure to TB No History of Positive Chest X-Ray for TB No History of Positive TB Skin Test No Homeless No Known Immunosuppression No Recent Immigrant No Resident of Institutional Living No Bloody Sputum No Fatigue No Fever No Loss of Appetite No Night Sweats No Persistent Cough > 3 Weeks No Weight Loss No Individuals Taught Patient, Spouse Barriers to Learning None evident Teaching Method Explanation, Printed materials Preferred Written Language German Preferred Spoken Language German Pre Procedure/Surgery Education Appropriate expectations Procedure/Surgical Teaching Evaluation Verbalizes/Nonverbally indicates understanding Information Given by Patient Patient's Current Physicians DR. ALBRECHT Discharge To, Anticipated Home with family care Prev Test Positive/Diagnosis w/COVID-19 Yes Previous COVID-19 Positive Date 2020 Current Quarantine/Isolated any Illness No Any Contact with Sick Animals/Birds No Traveled Anywhere in Last 30 Days No N/A Personal Devices, Patient Valuables None Admission Note-Nursing Procedure/Therapy Intake . Assessment and Plan [place] [employer] Anesthesiologists (ASA) physical status classification: Class II. Anesthetic Preoperative Plan Anesthetic technique: MAC. Postoperative pain management: Per surgeon. Informed consent: signed by patient. Digitally Signed by TERESA VIEYRA on 09/04/2022 11:46 AM [facility]03-13-2023 Note BLYTHE ADMISSION HISTORY AND PHYSICIAL CHIEF COMPLAINT: HISTORY OF PRESENT ILLNESS: REVIEW OF SYSTEMS: ACTIVE PROBLEMS: (8) Bradycardia (86857719) Elevated liver enzymes (5065495037) Hyperglycemia (362053664) Need for vaccination (6561535069) Screening for colon cancer (564661382) Screening for metabolic disorder (377750201) Screening for prostate cancer (754436236) SOB - Shortness of breath (973825300) MEDICATIONS: Active Inpt Meds: None Active PRN Meds: None One Time Meds: None Active IV Meds: Lactated Ringers Infusion 1,000 mL (LR 1,000 mL) Start: 09/04/22 11:20:00 EDT, Rate: 50 mL/hr, 09/04/22 11:20:00 EDT ALLERGIES: (1) NKA FAMILY HISTORY: SOCIAL HISTORY: PHYSICAL EXAM: VITALS: IldptlDrqbRRNveutCZWaF0FGP9XgckMt(kg) 09/04 11:2536.3--279259PH85/13 72.7 24 Hr Tmax: 36.3 at 09/04 11:25 36 Hr Tmax: 36.3 at 09/04 11:25 Vital Signs are the last 5 in the past 48 hours. Weights display the last 5 within 7 days. Initial Wt: 09/04 72.7 kg 160 lb Current Wt: 09/04 72.7 kg 160 lb GENERAL: HEENT: CARDIOVASCULAR: RESPIRATORY: ABDOMEN: EXREMETIES: NEUROLOGICAL: PSYCHIATRIC: LABS: No 36hr Lab Data DIAGNOSTICS: IMPRESSION: PLAN: History and Physical Update I have examined the patient; reviewed the H&P and there are no changes to the H&P unless noted below. Digitally Signed by SILVANA BRITO MD on 09/04/2022 11:44 AM [facility] Appointment Date:07/11/2022 09:00:00 AM Scheduled Provider:DEE ALBRECHT DO Location:[facility] Appointment Type:PC OV [facility] Evaluation + Plan note Future Scheduled Tests Laboratory* Prostate Specific Antigen 01/08/23 * A1C Hemoglobin 01/08/23 * Complete Metabolic Panel 01/08/23 [facility] Evaluation note* Diagnosis Irregular heart beat- Primary Cardiac dysrhythmia, unspecified Abnormal EKG Nonspecific abnormal electrocardiogram (ECG) (EKG) Atrial fibrillation, unspecified type (HCC) Bradycardia Other specified cardiac dysrhythmias Pneumonia, bacterial Bacterial pneumonia, unspecified Mitral valve insufficiency, unspecified etiology Tricuspid valve insufficiency, unspecified etiology Hypersomnolence Hypersomnia, unspecified documented in this encounter [facility] course Narrative No data available for this section [facility] Hospital Discharge instructions No data available for this section [facility] Progress note No data available for this section [facility] Summary Purpose Family History No Family History Records FoundNo Family History Records Found Advance Directives No Advanced Directives Records FoundNo Advanced Directives Records Found Additional Source Comments Care Team (unrecognized sect ion and content) Care Team Personnel Name: DEE ALBRECHT DO Position: P4 Physician - Primary Care Med Service: Active Provider Member Role: Primary Care Physician Address: Address: [address] [place] [address] Care Team Related Persons Name: JACK RENTERIA Address: Home [address] Care Team Personnel Name: DEE ALBRECHT DO Position: P4 Physician - Primary Care Member Role: Primary Care Physician Address: Address: [address] [place] [address] Care Team Related Persons Name: HIMANSHUMATTJACK Address: Home [address] [id number] (unrecognized sect ion and content) No Status Records FoundNo Status Records Found INFORMATION SOURCE (unrecogn ized section and content) DATE CREATED AUTHOR AUTHOR'S RENNY ATION 2023 [facility] Patient Care team informatio n (unrecognized section and content) Care Team Personnel Name: DEE ALBRECHT DO Position: P4 Physician - Primary Care Member Role: Primary Care Physician Address: Address: [address] [place], [place] [id number] Care Team Related Persons Name: JACK RENTERIA Address: Home [address] [place], [place] [id number] Source Comments (unrecognize d section and content) In the event this informatio n is protected by the Federal Confidentiality of Alcohol and Drug Abuse Patient Records regulations: The Federal rules restrict any use of the information to criminally investigate or prosecute any alcohol or drug abuse patient.[facility] FOR RECORDS PERTAINING TO PATIENTS WHO ARE OR HAVE BEEN ENROLLED IN A CHEMICAL DEPENDENCY/SUBSTANCEABUSE PROGRAM, SOME INFORMATION MAY BE OMITTED. This clinical summary was aggregated from multiple sources. Caution should be exercised in using it in the provision of clinical care. This summary normalizes information from multiple sources, and as a consequence, information in this document may materially change the coding, format and clinical context of patient data. In addition, data may be omitted in some cases. CLINICAL DECISIONS SHOULD BE BASED ON THE PRIMARY CLINICAL RECORDS. [facility]. provides no warranty or guarantee of the accuracy or completeness of information in this document.
--- NOTE | 2023-06-26 10:32 | CL.D_ITS ---
Patient Name: ARACELI RENTERIA Study Date: 06/26/2023 Performing: Khoa Goldstein MD Ht: 71 inches 180.34 cm : 1950 Wt: 177.01 lbs 80.29 kg Age: 73 Gender: male BSA: 2 PROCEDURE(S) PERFORMED DC02-(52904)C/COR CLINICAL PROFILE AND INDICATIONS Indications: Suspected CAD Heart Failure: None Stress/Imaging Stress Test w/SPECT MPI: Yes Result: Positive Intermediate RiskStress Test with SPECT MPI: Positive Intermediate Risk CONCLUSIONS Mild CAD RECOMMENDATIONS Risk factor modification DESCRIPTION OF PROCEDURE The patient arrived to the procedure lab. The risks and benefits of the procedure as well as a full description of our services here and current unavailability of surgical backup were fully explained to the patient and/or their significant other prior to the catheterization. The Timeout was completed, verifying the correct patient and procedure. The patient's procedural site was prepped and draped in the usual fashion. Local anesthetic was given subcutaneously to right radial region with Lidocaine 2%. Using a modified Seldinger technique, arterial access was obtained via the right radial artery, a 6Fr sheath was inserted. Right Coronary Artery selective angiography was then performed in multiple views using a 5 Fr. 4.0 Aiken catheter. Left Coronary Artery selective angiography was performed in multiple views using a 5 Fr. 4.0 Aiken catheter.The arterial sheath flushed then was pulled and a TR Band was applied for hemostasis w/ 10ml air CORONARY ANGIOGRAPHY DOMINANCE: Right Dominant LEFT MAIN: Angiographically normal LEFT ANTERIOR DESCENDING ARTERY: LAD: Tubular 20% Proximal lesion in LAD RIGHT CORONARY ARTERY: RCA: Tubular 10% Mid lesion in RCA COMPLICATIONS No Complications PROCEDURE MEDICATIONS Versed 1 mg IV Fentanyl 50 mcg IV Baby Aspirin (81mg) 1 Tabs PO @ 06/26/2023 08:36:05 Heparin given IA 06/26/2023 10:17:42 Verapamil 2.5mg, Ntg 200mcgs, 2000 units of Heparin given IA 06/26/2023 10:17:42 SUMMARY OF HEMODYNAMIC DATA Time AIR REST ECG 08:33:47 ECG 08:34:19 AO 97/66 (84) SA 10:20:47 Signed By Khoa Goldstein MD On 06/26/2023 10:32:28 Khoa Goldstein MD
== END 2023-06-26 12:30 | disposition home or self-care (01) ==
PROVIDERS: Nurse Practitioner Family; Referring Provider Internal Medicine Cardiovascular Disease; Visit Provider Internal Medicine Cardiovascular Disease
DX: I25.10 Atherosclerotic heart disease of native coronary artery without angina pectoris (principal); I48.19 Other persistent atrial fibrillation; R94.39 Abnormal result of other cardiovascular function study; I08.1 Rheumatic disorders of both mitral and tricuspid valves; G47.10 Hypersomnia, unspecified
CPT/HCPCS: 36415; 71046; 80048; 85025; 85610; 93454; 99152; 99153; J7040; Q9967; C1769; C1894

== ENCOUNTER → 2024-02-08 | Outpatient (CLI) | payer MEDICARE, OTHER, SELFPAY ==
[2024-02-08 09:17] LABS: ALB/GLOB Ratio 1.2 RATIO (0.9-2.4); AST(SGOT) 17 U/L (15-37); Alanine Aminotransfer ALT/SGPT 24 U/L (16-61); Albumin, Serum 3.4 g/dL (3.2-5.0); Alkaline Phosphatase 71 U/L (45-117); Anion Gap 3 (5-15); BUN 17 mg/dL (7-18); BUN/Creat Ratio 17.2 RATIO (10-20); CPK Total, Creatine Kinase 92 U/L (39-308); Calcium,Total 8.4 mg/dL (8.5-10.1); Chloride 108 mmol/L (98-107); Cholesterol 170 mg/dL (200); Creatinine, Serum 0.99 mg/dL (0.70-1.30); EST Glomerular Filtration Rate 78 mL/min (>60); Est Glom Filt Rate - Afr Amer 95 mL/min (>60); Globulin 2.8 g/dL (2.2-4.2); Glucose 99 mg/dL (74-106); High Density Lipoprotein 68 mg/dL; Protein, Total 6.2 g/dL (6.4-8.2); Sodium Level 139 mmol/L (136-145); Triglycerides 50 mg/dL; Very Low Density Lipoprotein 10 mg/dL (5-40)
== END | disposition home or self-care (01) ==
LOC: LAB 08:02
PROVIDERS: Referring Provider Internal Medicine Cardiovascular Disease; Visit Provider Internal Medicine Cardiovascular Disease
DX: I25.10 Atherosclerotic heart disease of native coronary artery without angina pectoris (principal); E78.5 Hyperlipidemia, unspecified; R94.39 Abnormal result of other cardiovascular function study
CPT/HCPCS: 36415; 80053; 80061; 82550

== ENCOUNTER → 2025-05-20 | Outpatient (CLI) | payer MEDICARE, OTHER, SELFPAY ==
[2025-05-20 10:36] LABS: Hematocrit 47.0 % (40-54); Hemoglobin 15.9 g/dL (13.0-16.5); Mean Corp Hgb Conc 33.8 g/dL (32-36); Mean Corpuscular Volume 90.0 fL (80-94); Mean Platelet Vol. 9.2 fl (6.2-12.0); Platelet Count 246 K/mm3 (150-450); RBC Distribution Width CV 13.0 % (11.6-14.6); RBC Distribution Width SD 43.2 fl (35.1-43.9); Red Blood Count 5.22 M/mm3 (4.6-6.2); White Blood Count 4.8 K/mm3 (4.4-11.0)
--- OUTSIDE RECORDS SUMMARY | 2025-05-20 10:40 | XMS RPT_ITS | CCD ---
Author Organization [facility] Care Team Providers Care Manager Intern Name Role Phone TRENA BAKER, DR PRICE Primary Care Physician [phone] TRENA BAKER, DR PRICE Attending Unavailable TRENA BAKER, DR PRICE Primary Care Unavailable TRENA BAKER, DR PRICE Attending Unavailable TRENA BAKER, DR PRICE Primary Care Unavailable DARYL SANTILLAN, DR PINA Attending Viraj ALBRECHT DO, DR PRICE Primary Care Melody Albrecht, Dr. Dee Ordonez Primary Care Provider [phone] Dr. Dee Albrecht Referring Provider Triston, Dr. Couch Attending Provider [phone] Triston, Dr. Couch Referring Provider [phone] Triston, Dr. Couch Other Provider Roof ORAL COMMUNICATION INSTRUCTOR, AFUA Suarez Attending Provider [phone] Unavailable Primary Care Provider Dr. Dee Daniels Primary Care Provider [phone] Dr. Dee Albrecht Referring Provider Triston, Dr. Couch Attending Provider [phone] Triston, Dr. Couch Referring Provider [phone] Triston, Dr. Couch Other Provider Roof ORAL COMMUNICATION INSTRUCTOR, AFUA Suarez Attending Provider [phone] THOMAS DUMONT Referring Unavailable CORAZON HAYES Attending Unavailable DEE ALBRECHT Primary Care Unavailable Dr. Dee Albrecht Primary Care Provider [phone] Triston, Dr. Couch Attending Provider Dr. Dee Albrecht Referring Provider Lory ORAL COMMUNICATION INSTRUCTOR, KARLA-C Dulce Attending Provider Triston, Khoa Attending Unavailable Trena, Dee Ordonez Primary Care Unavailable Triston, Khoa Referring Unavailable Triston, Khoa Attending Unavailable Trena, Dee Ordonez Primary Care Unavailable Triston, Khoa Referring Unavailable Triston, Khoa Consulting Unavailable Trena, Dee Ordonez Primary Care Unavailable Trena, Dee Ordonez Referring Unavailable Triston, Khoa Attending Unavailable Trena, Dee Ordonez Referring Unavailable Trena, Dee Ordonez Primary Care Unavailable Triston, Khoa Attending Unavailable Triston, Khoa Attending Unavailable Trena, Dee Ordonez Referring Unavailable Trena, Dee Ordonez Primary Care Unavailable Trena, Dee Ordonez Primary Care Unavailable Triston, Khoa Attending Unavailable Triston, Khoa Referring Unavailable Trena, Dee Ordonez Primary Care Unavailable Triston, Khoa Referring Unavailable Triston, Khoa Attending Unavailable Trena, Dee Ordonez Primary Care Unavailable Roof ORAL COMMUNICATION INSTRUCTOR, Thomas Suarez Attending Unavailable Roof ORAL COMMUNICATION INSTRUCTOR, Thomas Suarez Referring Unavailable Trena, Dee Ordonez Primary Care Unavailable Lory ACOSTA, Dulce Attending Unavailable Trena, Dee Ordonez Referring Unavailable Trena, Dee Ordonez Primary Care Unavailable Trena, Dee Ordonez Referring Unavailable Roof ORAL COMMUNICATION INSTRUCTOR, Thomas Suarez Attending Unavailable TRENA, DEE Attending Unavailable TRENADEE Primary Care Unavailable Medications Current Medications Medication Drug Class(es) Dates Sig (Normalized) Sig (Original) aspirin 81 mg delayed release oral tablet (16 sources) Platelet Aggregation Inhibitor, Nonsteroidal Anti-inflammatory Drug Start: 05-11-2023 Aspirin (Adult Low Dose Aspirin) 81 mg tablet,delayed release (/EMILIANO) Active 81 MG PO DAILY May 11, 2023 12:00am Start: 02-06-2023 End: 05-11-2023 take 325 mg by mouth once daily Aspirin Discontinued 325 MG PO DAILY February 05, 2023 11:00pm May 11, 2023 4:05pm Start: 02-05-2023 End: 02-06-2023 take 325 mg by mouth once daily Aspirin Discontinued 325 MG PO DAILY February 04, 2023 11:00pm February 06, 2023 9:01am Start: 03-31-2021 aspirin 325 mg oral tablet Dose : 325 mg = 1 tab(s), Oral, Daily, # 30 tab(s), 0 Refill(s), other reason (Rx) Start Date: 03/31/21 Status: Ordered Comment on above: Take 81 mg by mouth once daily. cholecalciferol 0.25 mg oral capsule (6 sources) Vitamin D Start: 02-07-20 take 250 ug by mouth once daily Cholecalciferol (Vitamin D3) Active 250 MCG PO DAILY February 05, 2023 11:00pm Comment on above: Take by mouth. lutein 25 mg / zeaxanthin 5 mg oral capsule (6 sources) Start: 02-07-20 take 1 capsule by mouth once daily Lutein-Zeaxanthin (Ocuvite Lutein 25) 25-5 mg capsule Active 1 CAP PO DAILY February 05, 2023 11:00pm lutein-zeaxanthi n 25-5 mg cap Take by mouth. 0 Active Comment on above: Take by mouth. Multivitamin preparation (8 sources) Start: 02-05-2023 take 1 tablet by mouth once daily Multivitamin Active 1 TABLET PO DAILY February 04, 2023 11:00pm Start: 02-05-2023 take 1 tablet by jacklyn th once daily Multivitamin Active 1 TABLET PO DAILY February 05, 2023 12:00am Start: 05-01-2022 take 1 tablet by jacklyn th once daily Multivitamin Dose = 1 tab(s), Oral, Daily, 0 Refill(s) Start Date: 05/01/22 Status: Ordered multivitamin (DA ANA LUISA VITAMIN ORAL) Take by mouth. 0 Active Comment on above: Take by mouth. Completed/Discontinued Medications Medication Drug Class(es) Dates Sig (Normalized) Sig (Original) acetaminophen 325 mg oral tablet (8 sources) Start: 02-05-2023 End: 04-03-2023 take 650 mg by mouth every four hours Acetaminophen Discontinued 650 MG PO Q4H February 04, 2023 11:00pm April 03, 2023 12:18pm Start: 03-31-2021 take 1 capsule by mo uth every four hours as needed Tylenol 325 mg oral capsule Dose : 650 mg =, Oral, q4h, PRN TEMP greater than 38.6 degrees Celsius, 0 Refill(s) Start Date: 03/31/21 Status: Ordered Magnesium (5 sources) Start: 02-06-2023 End: 04-03-2023 take 250 mg by mouth once daily Magnesium Discontinued 250 MG PO DAILY February 05, 2023 11:00pm April 03, 2023 12:17pm Start: 02-06-2023 End: 04-03-2023 take 250 mg by mouth once daily Magnesium Discontinued 250 MG PO DAILY February 06, 2023 12:00am April 03, 2023 1:17pm Start: 02-06-2023 take 250 mg by mouth once daily Magnesium Active 250 MG PO DAILY February 06, 2023 12:00am Iatenuxh-Les-Vztwekc-K-Herb3 30 (Alive Men's Max3 Potency) 133.3 mcg DFE- 40 mcg tablet (5 sources) Start: 02-06-2023 End: 04-03-2023 Plfynifr-Dwf-Mydsrce-K-Herb3 30 (Alive Men's Max3 Potency) 133.3 mcg DFE- 40 mcg tablet Discontinued 1 TABLET PO DAILY February 05, 2023 11:00pm April 03, 2023 12:18pm Start: 02-06-2023 End: 04-03-2023 Kytkgnjk-Raq-Gdpvdgp-K-Herb3 30 (Alive Men's Max3 Potency) 133.3 mcg DFE- 40 mcg tablet Discontinued 1 TABLET PO DAILY February 06, 2023 12:00am April 03, 2023 1:18pm Start: 02-06-2023 Okbkhjjb-Kou-B kxhnoa-Z-Wevf199 (Alive Men's Max3 Potency) 133.3 mcg DFE- 40 mcg tablet Active 1 TABLET PO DAILY February 06, 2023 12:00am Problems Active Problems Problem Classification Problem Date Documented Date Episodic/Chronic Administrative/social admission (1 source) Persons encountering health services in other specified circumstances; Translations: [Lack of adequate sleep] 06-11-2023 Episodic Cardiac dysrhythmias (19 sources) Cardiac arrhythmia; Translations: [Cardiac arrhythmia, unspecified] Onset: 05-11-2023 Chronic Coronary atherosclerosis and other heart disease (1 source) Atherosclerotic heart disease of [place] coronary artery without angina pectoris; Translations: [Atherosclerotic heart disease of [place] coronary artery without angina pectoris] Onset: 03-25-2024 Chronic Diabetes mellitus without complication (4 sources) Hyperglycemia; Translations: [Hyperglycemia, unspecified] 03-28-2021 Episodic Disorders of lipid metabolism (1 source) Hyperlipidemia, unspecified; Translations: [Hyperlipidemia, unspecified] Onset: 03-25-2024 Chronic Heart valve disorders (20 sources) Tricuspid valve regurgitation; Translations: [Rheumatic tricuspid insufficiency] Onset: 05-28-2023 04-03-2023 Chronic Other liver diseases (2 sources) Elevated liver enzymes level 01-10-2022 Episodic Other liver diseases (1 source) Enzyme level - finding; Translations: [Abnormal levels of other serum enzymes] Episodic Pneumonia (except that caused by tuberculosis or sexually transmitted disease) (1 source) Bacterial pneumonia; Translations: [Unspecified bacterial pneumonia] 05-28-2023 Episodic Residual codes; unclassified (4 sources) Hypersomnia; Translations: [Hypersomnia, unspecified] Onset: 05-28-2023 05-28-2023 Chronic Residual codes; unclassified (3 sources) Hypersomnia, unspecified; Translations: [Hypersomnia, unspecified] Onset: 06-05-2023 05-11-2023 Chronic Residual codes; unclassified (1 source) Other specified personal risk factors, not elsewhere classified; Translations: [At risk for stroke] Onset: 06-14-2023 Episodic Unclassified (9 sources) Patient encounter status 01-10-2022 Unclassified (3 sources) Vaccination needed 01-10-2022 Unclassified (3 sources) Other persistent atrial fibrillation; Translations: [Persistent atrial fibrillation (HCC)] Onset: 06-14-2023 Past or Other Problems Problem Classification Problem Date Documented Da te Episodic/Chronic Cardiac dysrhythmias (11 sources) Bradycardia; Translations: [Bradycardia, unspecified] Onset: 05-11-2023 03-28-2021 Episodic Other screening for suspected conditions (not mental disorders or infectious disease) (20 sources) Encounter for screening for malignant neoplasm of colon; Translations: [Encounter for screening for malignant neoplasm of prostate] Onset: 09-04-2022 Episodic Results Test Name Value Interpretation Reference Range Facility US AAA SCREENINGon US AAA SCREENING ORIGINAL EXAMINATION: SCREENING ULTRASOUND OF THE AORTA09/15/2024 8:08 am Ultrasound of the abdominal aorta COMPARISON: None TECHNIQUE: This report is based on interpretation of permanently recorded ultrasound images. HISTORY: ORDERING SYSTEM PROVIDED HISTORY: Reason for Exam: screen, smoking hx, FINDINGS: The abdominal aorta shows moderate atherosclerotic changes. No aortic aneurysm is seen. The aortic bifurcation and proximal common iliac arteries arenonaneurysmal also. AP and Transverse diameter of the proximal segment: 2.6 x 2.4 cm AP and Transverse diameter of the mid segment: 2.3 x 2.1 cm AP and Transverse diameter of the distal segment: 2.2 x 2.3 cm IMPRESSION: Atherosclerotic aorta. No aneurysm is seen. Interpreted by: Gustabo Erazo MD Preliminary Report By: Gustabo Erazo MD Electronically signed By Gustabo Erazo MD Dictated Date: 09/15/2024 4:23:08 PM Prelim Date: 09/15/2024 4:23:55 PM Sign Date: 09/15/2024 4:23:55 PM Ordering Provider: DEE Cid [facility] Cardiology Visit Reporton Cardiology Visit Report [facility] [address] [place] [address] OFFICE VISIT Date of Service: 03/25/24 MR#: [id number] Acct: [id number] Name: ARACELI RENTERIA Rep #: [id number] : 1950 Provider: Dr. Khoa Goldstein MD Age/Sex: 73/M [place] [facility] [place] Status: Signed [facility] History of Present Illness Details: This gentleman is here for follow-up visit. Denies any complaints. Remains physically very active. Intake Vital Signs 10/23/23 13:12 03/25/24 08:36 Height 5 ft 11 in 5 ft 11 in Weight: 173 lb 171 lb BMI 24.1 23.8 BP 99/64 101/73 Blood Pressure Location Lt brachial Lt brachial Position Sitting Sitting Respiration 16 16 Pulse 68 67 Pulse Source Auscultation NIBP Intake Visit Reasons: 6 M FU Crack Off Person Required: No Is patient in pain?: No Allergies No Known Allergies Allergy (Unverified 03/25/24 14:24) Medications ???Medication ???Instructions ???Recorded ???Confirmed ???Type multivitamin 1 tab PO DAILY 02/05/23 03/25/24 History cholecalciferol (vitamin D3) 250 250 mcg PO DAILY 02/06/23 03/25/24 History mcg (10,000 unit) capsule lutein 25 mg-zeaxanthin 5 mg 1 cap PO DAILY 02/06/23 03/25/24 History capsule (Ocuvite Lutein) aspirin 81 mg tablet,delayed 81 mg PO DAILY 05/11/23 03/25/24 History release (Adult Low Dose Aspirin) Ejection fraction %: 57 Have you fallen in the past year?: No PFSH Medical History Abnormal EKG Abnormal nuclear stress test Atrial fibrillation Bradycardia Hypersomnolence Irregular heart beat Mitral regurgitation Pneumonia due to COVID-19 virus Tricuspid regurgitation Surgical History History of colonoscopy Hx of cardiac catheterization ( 06/26/23) Family History Mother Myocardial infarction, Onset Age: 86 Social History Smoking Status: Never smoker alcohol intake: never substance use type: does not use caffeine: Yes (occasionally) ROS Const Const: Negative for fatigue, weakness, headache(s) or weight gain ENT ENT: Negative for headache(s), dizziness, Nosebleed/epistaxis or balance problems Cardio Chest Pain: No Palpitations: No Edema: None Muscle aches with walking: None Resp Respiratory: Negative for SOB with activity, SOB at rest or SOB orthopnea SOB lying down GI GI: Negative nausea, vomiting or heartburn Musc Musc: Negative for muscle aches/ myalgia, muscle weakness, joint pain or balance problems Neuro Neuro: Negative for dizziness, lightheadedness, near syncope, syncope, headache(s) or weakness Endo Endo: Negative for fatigue Cardiology Exam Const Appearance: comfortable and no acute distress Nutritional Appearance: well nourished Neck Neck: no JVD Carotids: Negative bruit Chest Auscultation: Bilateral: Clear to Auscultation Cardio Rhythm: irregularly irregular Heart sounds: S1 normal and S2 normal Neuro General: patient alert, patient awake and patient oriented x3 Extremities Lower Extremity Edema: None: Bilateral Supplemental Info Supplemental Information Stress Test from 03/09/2023: Impression: 1. Technically adequate (percent predicted maximal heart rate greater than 85%) exercise tolerance test 2. Peak exercise ECG with no ischemic changes 3. Rest and stress SPECT Cardiolite nuclear imaging demonstrate possible mild inferior and apical ischemia. 5. The gated Cardiolite study reports an LVEF of 57%. Echocardiogram 03/09/2023: Interpretation Summary The estimated ejection fraction is 60 %. Mild (1+) mitral valve insufficiency. Bubble contrast study negative for right to left interatrial shunt. There is moderate biatrial dilatation. Mild to moderate (1-2+) tricuspid valve insufficiency. CARDIAC CATHETERIZATION 06/26/23: CONCLUSIONS Mild CAD RECOMMENDATIONS Risk factor modification CORONARY ANGIOGRAPHY DOMINANCE: Right Dominant LEFT MAIN: Angiographically normal LEFT ANTERIOR DESCENDING ARTERY: LAD: Tubular 20% Proximal lesion in LAD RIGHT CORONARY ARTERY: RCA: Tubular 10% Mid lesion in RCA Assessment and Plan Assessment and Plan (1) Atrial fibrillation: Status: Chronic Qualifiers: Atrial fibrillation type: persistent (not longstanding) Qualified Code(s): I48.19 - Other persistent atrial fibrillation Plan: Ventricular rate controlled. Patient noted to have mild coronary artery disease on coronary angiography. With that, his CHADS2???VASc score is 2. Patient not interested in any anticoagulation. Just wishes to continue aspirin. I offered the patient referral to EP for evaluation for possible left atrial appenda (more content not included)... Normal [facility] CPK Total, Creatine Kinaseon 02-08-2024 CPK TOTAL 92 U/L Normal 39-308 [facility] Comment on above: Performed By: #### L 500.4050, L501.3620, L500.4100 #### [facility] [address] [place], [place], [id number] Comprehensive Metabolic Prof ilon 02-08-2024 Albumin [Mass/Vol] 3.4 g/dL Normal 3.2-5.0 [facility] Comment on above: Performed By: #### L 500.4050, L501.3620, L500.4100 #### [facility] [address] [place], [address] Albumin/Globulin [Mass ratio] 1.2 {ratio} Normal 0.9-2.4 [facility] Comment on above: Performed By: #### L 500.4050, L501.3620, L500.4100 #### [facility] [address] [place], [address] ALK P 71 U/L Normal 45-117 [facility] Comment on above: Performed By: #### L 500.4050, L501.3620, L500.4100 #### [facility] [address] [place], [address] ALT [Catalytic activity/Vol] 24 U/L Normal 16-61 [facility] Comment on above: Performed By: #### L 500.4050, L501.3620, L500.4100 #### [facility] [address] [place], [address] AST [Catalytic activity/Vol] 17 U/L Normal 15-37 [facility] Comment on above: Performed By: #### L 500.4050, L501.3620, L500.4100 #### [facility] [address] [place], [address] Bilirubin [Mass/Vol] 1.00 mg/dL Normal 0.20-1.00 [facility] Comment on above: Result Comment: For patients on eltrombopag therapy, use of Dimension [place] TBIL is not recommended. Performed By: #### L 500.4050, L501.3620, L500.4100 #### [facility] [address] [place], [address] BUN/CRE 17.2 RATIO Normal 10-20 [facility] Comment on above: Performed By: #### L 500.4050, L501.3620, L500.4100 #### [facility] [address] [place], [address] CA,Total 8.4 mg/dL Low 8.5-10.1 [facility] Comment on above: Performed By: #### L 500.4050, L501.3620, L500.4100 #### [facility] [address] [place], [address] Chloride [Moles/Vol] 108 mmol/L High 98-107 [facility] Comment on above: Performed By: #### L 500.4050, L501.3620, L500.4100 #### [facility] [address] [place], [address] CO2 [Moles/Vol] 28.0 mmol/L Normal 21.0-32.0 [facility] Comment on above: Performed By: #### L 500.4050, L501.3620, L500.4100 #### [facility] [address] [place], [address] Creatinine [Mass/Vol] 0.99 mg/dL Normal 0.70-1.30 [facility] Comment on above: Result Comment: The validity of the calculated GFR GFRAA in patients over 70 years has not been determined. Clinical correlation is essential. Performed By: #### L 500.4050, L501.3620, L500.4100 #### [facility] [address] [place], [address] EST GFR - AA 95 mL/min Normal >60 [facility] Comment on above: Result Comment: Afri can [place] GFR Calc Performed By: #### L 500.4050, L501.3620, L500.4100 #### [facility] [address] [place], [address] GAP 3 Low 5-15 [facility] Comment on above: Performed By: #### L 500.4050, L501.3620, L500.4100 #### [facility] [address] [place], [address] GFR/1.73 sq M.predicted among non-blacks MDRD (S/P/Bld) [Vol rate/Area] 78 mL/min/{1.73_m2} Normal >60 [facility] Comment on above: Result Comment: Non- GFR Calc Performed By: #### L 500.4050, L501.3620, L500.4100 #### [facility] [address] [place], [address] Globulin (S) [Mass/Vol] 2.8 g/dL Normal 2.2-4.2 [facility] Comment on above: Performed By: #### L 500.4050, L501.3620, L500.4100 #### [facility] [address] [place], [address] Glucose [Mass/Vol] 99 mg/dL Normal 74-106 [facility] Comment on above: Performed By: #### L 500.4050, L501.3620, L500.4100 #### [facility] [address] [place], [address] Potassium [Moles/Vol] 4.0 mmol/L Normal 3.5-5.1 [facility] Comment on above: Performed By: #### L 500.4050, L501.3620, L500.4100 #### [facility] [address] [place], [address] Sodium [Moles/Vol] 139 mmol/L Normal 136-145 [facility] Comment on above: Performed By: #### L 500.4050, L501.3620, L500.4100 #### [facility] [address] [place], [address] T PROT 6.2 g/dL Low 6.4-8.2 [facility] Comment on above: Performed By: #### L 500.4050, L501.3620, L500.4100 #### [facility] [address] [place], [address] Urea nitrogen [Mass/Vol] 17 mg/dL Normal 7-18 [facility] Comment on above: Performed By: #### L 500.4050, L501.3620, L500.4100 #### [facility] [address] [place], [address] Lipid Profileon 02-08-2024 Cholesterol [Mass/Vol] 170 mg/dL Normal 200 [facility] Comment on above: Result Comment: <200 mg/dL Desirable 200-240 mg/dL Borderline >240 mg/dL High Risk Performed By: #### L 500.4050, L501.3620, L500.4100 #### [facility] [address] [place], [address] Cholesterol in HDL [Mass/Vol] 68 mg/dL Normal [facility] Comment on above: Result Comment: The drugs N-Acetylcysteine and Metamizole may falsely depress this assay. Reference Range HDL <40 mg/dL Low HDL Cholesterol HDL >or= 60 mg/dL High HDL Cholesterol Performed By: #### L 500.4050, L501.3620, L500.4100 #### [facility] [address] [place], [address] Cholesterol in LDL [Mass/Vol] 92 mg/dL Normal 0-130 [facility] Comment on above: Performed By: #### L 500.4050, L501.3620, L500.4100 #### [facility] [address] [place], [address] Cholesterol in VLDL [Mass/Vol] 10 mg/dL Normal 5-40 [facility] Comment on above: Performed By: #### L 500.4050, L501.3620, L500.4100 #### [facility] [address] [place], [address] Triglyceride [Mass/Vol] 50 mg/dL Normal [facility] Comment on above: Result Comment: The drugs N-Acetylcysteine and Metamizole may falsely depress this assay. Serum Triglycerides Reference Interval Normal <150 mg/dL Borderline high 150 - 199 mg/dL High 200 - 499 mg/dL Very High > or = 500 mg/dL Performed By: #### L 500.4050, L501.3620, L500.4100 #### [facility] [address] [place], [address] Cardiology Visit Reporton Cardiology Visit Report [facility] [address] [place] [address] OFFICE VISIT Date of Service: 10/23/23 MR#: [id number] Acct: [id number] Name: ARACELI RENTERIA Rep #: [id number] : 1950 Provider: Dr. Khoa Goldstein MD Age/Sex: 73/M [place] [facility] [place] Status: Signed HPI HPI History of Present Illness Details: This gentleman is here for follow-up visit. He has had coronary angiography done in June of this year. It showed mild CAD. Denies any complaints. Physically very active. Denies any palpitations. No orthopnea. No PND. No ankle edema. No lightheadedness or dizziness. No syncope or presyncope. Intake Vital Signs 06/26/23 08:30 10/23/23 13:12 Height 5 ft 11 in 5 ft 11 in Weight: 177 lb 173 lb BMI 24.1 BP 99/64 Blood Pressure Location Lt brachial Position Sitting Respiration 16 Pulse 68 Pulse Source Auscultation Intake Visit Reasons: 6 M FU Crack Off Person Required: No Accompanied by: Self Is patient in pain?: No Allergies No Known Allergies Allergy (Unverified 10/23/23 13:14) Medications multivitamin 1 tab PO DAILY 02/05/23 [History Confirmed 10/23/23] cholecalciferol (vitamin D3) 250 mcg (10,000 unit) capsule 250 mcg PO DAILY 02/06/23 [History Confirmed 10/23/23] lutein 25 mg-zeaxanthin 5 mg capsule (Ocuvite Lutein) 1 cap PO DAILY 02/06/23 [History Confirmed 10/23/23] aspirin 81 mg tablet,delayed release (Adult Low Dose Aspirin) 81 mg PO DAILY 05/11/23 [History Confirmed 10/23/23] Ejection fraction %: 60 PFSH Medical History Abnormal EKG Abnormal nuclear stress test Atrial fibrillation Bradycardia Hypersomnolence Irregular heart beat Mitral regurgitation Pneumonia due to COVID-19 virus Tricuspid regurgitation Surgical History History of colonoscopy Hx of cardiac catheterization ( 06/26/23) Family History Mother Myocardial infarction, Onset Age: 86 Social History Smoking Status: Never smoker alcohol intake: never substance use type: does not use caffeine: Yes (occasionally) ROS Const Const: Positive for daytime sleepiness; Negative for fatigue, weakness, headache(s), frequent falls, difficulty sleeping or excessive sweating Eyes Eyes: Negative for loss of peripheral vision, transient loss of vision, blurry vision, double vision or tunnel vision ENT ENT: Negative for headache(s), dizziness, Nosebleed/epistaxis or balance problems Cardio Chest Pain: No Palpitations: No Edema: None Muscle aches with walking: None Resp Respiratory: Negative for SOB with activity, SOB at rest, SOB orthopnea SOB lying down, Cough or paroxysmal nocturnal dyspnea GI GI: Negative nausea, vomiting, heartburn or black,tarry stools : Negative for hematuria Musc Musc: Negative for muscle aches/ myalgia, muscle weakness, joint pain or balance problems Skin Skin: Negative non-healing lesions, rash or unusual bruising Neuro Neuro: Negative for dizziness, lightheadedness, near syncope, syncope, frequent falls, headache(s), weakness, blurry vision, double vision or lack of coordination Daniel Hematologic/Lymphatic : Negative for easy bleeding or easy bruising Endo Endo: Negative for fatigue, excessive sweating or increased thirst/drinking Psych Psych: Negative for anxiety or depression Allergy Allergy/Immunology: Negative for hives and Negative for rash Cardiology Exam Const Appearance: comfortable and no acute distress Nutritional Appearance: well nourished Neck Neck: no JVD Carotids: Negative bruit Chest Auscultation: Bilateral: Clear to Auscultation Cardio Rhythm: irregularly irregular Heart sounds: S1 normal and S2 normal Neuro General: patient alert, patient awake and patient oriented x3 Extremities Lower Extremity Edema: None: Bilateral Supplemental Info Supplemental Information Stress Test from 03/09/2023: Impression: 1. Technically adequate (percent predicted maximal heart rate greater than 85%) exercise tolerance test 2. Peak exercise ECG with no ischemic changes 3. Rest and stress SPECT Cardiolite nuclear imaging demonstrate possible mild inferior and apical ischemia. 5. The gated Cardiolite study reports an LVEF of 57%. Echocardiogram 03/09/2023: Interpretation Summary The estimated ejection fraction is 60 %. Mild (1+) mitral valve insufficiency. Bubble contrast study negative for right to left interatrial shunt. There is moderate biatrial dilatation. Mild to moderate (1-2+) tricuspid valve insufficiency. CARDIAC CATHETERIZATION 06/26/23: CONCLUSIONS Mild CAD RECOMMENDATIONS Risk factor modification CORONARY ANGIOGRAPH (more content not included)... Normal [facility] Cardiac Cath Diagnosticon Cardiac Cath Diagnostic [facility] Imaging Services [address] [place] [id number] Cardiac Cath Diagnostic MR#: [id number] Acct: [id number] Name: ARACELI RENTERIA Rep #: [id number] : 1950 73 From: Khoa Goldstein MD PCP: Dr. Dee Albrecht, DO Status:[facility] Patient Name: ARACELI RENTERIA Study Date: 06/26/2023 Performing: Khoa Goldstein MD Ht: 71 inches 180.34 cm : 1950 Wt: 177.01 lbs 80.29 kg Age: 73 Gender: male BSA: 2 PROCEDURE(S) PERFORMED DC02-([id number])[facility] CLINICAL PROFILE AND INDICATIONS Indications: Suspected CAD Heart Failure: None Stress/Imaging Stress Test w/SPECT MPI: Yes Result: Positive Intermediate RiskStress Test with SPECT MPI: Positive Intermediate Risk CONCLUSIONS Mild CAD RECOMMENDATIONS Risk factor modification DESCRIPTION OF PROCEDURE The patient arrived to the procedure lab. The risks and benefits of the procedure as well as a full description of our services here and current unavailability of surgical backup were fully explained to the patient and/or their significant other prior to the catheterization. The Timeout was completed, verifying the correct patient and procedure. The patient's procedural site was prepped and draped in the usual fashion. Local anesthetic was given subcutaneously to right radial region with Lidocaine 2%. Using a modified Seldinger technique, arterial access was obtained via the right radial artery, a 6Fr sheath was inserted. Right Coronary Artery selective angiography was then performed in multiple views using a 5 Fr. 4.0 Fieldton catheter. Left Coronary Artery selective angiography was performed in multiple views using a 5 Fr. 4.0 Fieldton catheter.The arterial sheath flushed then was pulled and a TR Band was applied for hemostasis w/ 10ml air CORONARY ANGIOGRAPHY DOMINANCE: Right Dominant LEFT MAIN: Angiographically normal LEFT ANTERIOR DESCENDING ARTERY: LAD: Tubular 20% Proximal lesion in LAD RIGHT CORONARY ARTERY: RCA: Tubular 10% Mid lesion in RCA COMPLICATIONS No Complications PROCEDURE MEDICATIONS Versed 1 mg IV Fentanyl 50 mcg IV Baby Aspirin (81mg) 1 Tabs PO @ 06/26/2023 08:36:05 Heparin given IA 06/26/2023 10:17:42 Verapamil 2.5mg, Ntg 200mcgs, 2000 units of Heparin given IA 06/26/2023 10:17:42 SUMMARY OF HEMODYNAMIC DATA Time AIR REST ECG 08:33:47 ECG 08:34:19 AO 97/66 (84) SA 10:20:47 Signed By Khoa Goldstein MD On 06/26/2023 10:32:28 Khoa Goldstein MD 06/26/23 1032 Date Khoa Goldstein MD Cosigner Signature: Date (if indicated) CC: Dr. Khoa Goldstein MD; Dr. Dee Albrecht DO Date Dictated: 06/26/23 1012 Date Transcribed: 06/26/23 1032 Resource Conservation Manager: LILLIAM Signed Normal [facility] CNOVon 06-15-2023 CNOV Office Visit (CARDAGHWW) ARACELI RENTERIA ([id number]) 1950 M Date Time Provider Department 06/15/23 10:20 AM CORAZON HAYES CARDAGHWFidencio During your visit today, we recorded the following information about you: Pulse Blood pressure Weight Height 73/minute 117/78 79.4 kg 1.803 m Corazon Hayes MD 06/15/2023 6:23 PM Signed PRIMARY CARE PHYSICIAN: Dee Albrecht DO [address] [place] [address] REFERRING PHYSICIAN: Thomas Dumont NP [address] [address] Patient Care Team: Dee Albrecht DO as PCP - General (Family Medicine) Thomas Dumont as Nurse Practitioner (Cardiology) Khoa Goldstein MD as Specialty Brazer Induction (Cardiology) CHIEF COMPLAINT: Evaluation of arrhythmia HISTORY [...] He states he had sleep study recently ([facility]) and he does not have sleep [...] Cardiac Mother 85 suddenly, so unclear if LA or cardiac arrhythmia Hypertension Mother Cancer Mother [...] and Affect: Mood normal. Behavior: Behavior normal. (more content not included)... Normal [facility] Absolute lymphocyte countOrd ered By: Thomas Dumont on 06-11-2023 Lymphocytes Auto (Unsp spec) [#/Vol] 1.52 10*3/uL 0.83-4.51 [facility] Basic Metabolic Profile (BMP )on 06-11-2023 BUN/CRE 16.3 RATIO Normal 10-20 [facility] Comment on above: Performed By: #### L 100.0100, L500.2500, L300.3900 ####[facility] [address] [place], [address] CA,Total 8.3 mg/dL Low 8.5-10.1 [facility] Comment on above: Performed By: #### L 100.0100, L500.2500, L300.3900 ####[facility] [address] [place], [address] Chloride [Moles/Vol] 109 mmol/L High 98-107 [facility] Comment on above: Performed By: #### L 100.0100, L500.2500, L300.3900 ####[facility] [address] [place], [address] CO2 [Moles/Vol] 30.0 mmol/L Normal 21.0-32.0 [facility] Comment on above: Performed By: #### L 100.0100, L500.2500, L300.3900 ####[facility] [address] [place], [address] Creatinine [Mass/Vol] 0.92 mg/dL Normal 0.70-1.30 [facility] Comment on above: Result Comment: The validity of the calculated GFR GFRAA in patients over 70 years has not been determined. Clinical correlation is essential. Performed By: #### L 100.0100, L500.2500, L300.3900 ####[facility] [address] [place], [address] EST GFR - AA 103 mL/min Normal >60 [facility] Comment on above: Result Comment: Afri can Nicaraguan GFR Calc Performed By: #### L 100.0100, L500.2500, L300.3900 ####[facility] [address] [place], [address] GAP 4 Low 5-15 [facility] Comment on above: Performed By: #### L 100.0100, L500.2500, L300.3900 ####[facility] [address] [place], [address] GFR/1.73 sq M.predicted among non-blacks MDRD (S/P/Bld) [Vol rate/Area] 85 mL/min/{1.73_m2} Normal >60 [facility] Comment on above: Result Comment: Non- GFR Calc Performed By: #### L 100.0100, L500.2500, L300.3900 ####[facility] [address] [place], [address] Glucose [Mass/Vol] 106 mg/dL Normal 74-106 [facility] Comment on above: Result Comment: Fast ing Glucose result from 100 to 125 mg/dL suggests IMPAIRED HOMEOSTASIS per A.D.A. criteria. Performed By: #### L 100.0100, L500.2500, L300.3900 ####[facility] [address] [place], [address] Potassium [Moles/Vol] 4.1 mmol/L Normal 3.5-5.1 [facility] Comment on above: Performed By: #### L 100.0100, L500.2500, L300.3900 ####[facility] [address] [place], [address] Sodium [Moles/Vol] 143 mmol/L Normal 136-145 [facility] Comment on above: Performed By: #### L 100.0100, L500.2500, L300.3900 ####[facility] [address] [place], [address] Urea nitrogen [Mass/Vol] 15 mg/dL Normal 7-18 [facility] Comment on above: Performed By: #### L 100.0100, L500.2500, L300.3900 ####[facility] [address] [place], [address] Basophil percentageOrdered B y: Thomas Dumont on 06-11-2023 Basophils/100 WBC (Bld) 0.8 % 0-1 [facility] Chloride [Moles/Vol] 109 mmol/L 98-107 [facility] Eosinophils/100 WBC (Bld) 3.9 % 0-5 [facility] Glucose [Mass/Vol] 106 mg/dL 74-106 [facility] Comment on above: Fasting Glucose resu lt from 100 to 125 mg/dL suggests IMPAIRED HOMEOSTASIS per A.D.A. criteria. Neutrophils (Bld) [#/Vol] 4.0 10*3/uL 2.0-7.7 [facility] Neutrophils/100 WBC (Bld) 62.1 % 47-70 [facility] Potassium [Moles/Vol] 4.1 mmol/L 3.5-5.1 [facility] Sodium [Moles/Vol] 143 mmol/L 136-145 [facility] WBC (Bld) [#/Vol] 6.4 10*3/uL 4.4-11.0 [facility] Blood erythrocytes count (nu mber/volume)Ordered By: Thomas Dumont on 06-11-2023 RBC (Bld) [#/Vol] 5.24 10*6/uL 4.6-6.2 [facility] Blood hemoglobin measurement (mass/volume)Ordered By: Thomas Dumont on 06-11-2023 Hemoglobin (Bld) [Mass/Vol] 16.1 g/dL 13.0-16.5 [facility] Blood lymphocytes/100 leukoc ytesOrdered By: Thomas Dumont on 06-11-2023 Lymphocytes/100 WBC (Bld) 23.8 % 19-41 [facility] Blood monocytes/100 leukocyt esOrdered By: Thomas Dumont on 06-11-2023 Monocytes/100 WBC (Bld) 9.2 % 0-10 [facility] Blood platelet mean volumeOr dered By: Thomas Dumont on 06-11-2023 Platelet mean volume (Bld) [Entitic vol] 9.5 fL 6.2-12.0 [facility] CBC W/Diff, Automatedon 05-25 Absolute Lymph 1.52 X10 3/uL Normal 0.83-4.51 [facility] Comment on above: Performed By: #### L 100.0100, L500.2500, L300.3900 #### [facility] [address] [place], [address] Absolute Neut 4.0 X10 3/uL Normal 2.0-7.7 [facility] Comment on above: Performed By: #### L 100.0100, L500.2500, L300.3900 #### [facility] [address] [place], [address] Basophils/100 WBC (Bld) 0.8 % Normal 0-1 [facility] Comment on above: Performed By: #### L 100.0100, L500.2500, L300.3900 #### [facility] [address] [place], [address] Eosinophils/100 WBC (Bld) 3.9 % Normal 0-5 [facility] Comment on above: Performed By: #### L 100.0100, L500.2500, L300.3900 #### [facility] [address] [place], [address] Erythrocyte distribution width (RBC) [Ratio] 13.1 % Normal 11.6-14.6 [facility] Comment on above: Performed By: #### L 100.0100, L500.2500, L300.3900 #### [facility] [address] [place], [address] Hematocrit (Bld) [Volume fraction] 48.2 % Normal 40-54 [facility] Comment on above: Performed By: #### L 100.0100, L500.2500, L300.3900 #### [facility] [address] [place], [address] Hemoglobin (Bld) [Mass/Vol] 16.1 g/dL Normal 13.0-16.5 [facility] Comment on above: Performed By: #### L 100.0100, L500.2500, L300.3900 #### [facility] [address] [place], [address] IG% 0.200 Normal 0.0-0.9 [facility] Comment on above: Result Comment: IG% - Immature Granulocytes (promyelocytes, myelocytes and metamyelocytes) > 1% indicates that a LEFT SHIFT is Present. Performed By: #### L 100.0100, L500.2500, L300.3900 #### [facility] [address] [place], [address] Lymphocytes/100 WBC (Bld) 23.8 % Normal 19-41 [facility] Comment on above: Performed By: #### L 100.0100, L500.2500, L300.3900 #### [facility] [address] [place], [address] MCH (RBC) [Entitic mass] 30.7 pg Normal 27.0-32.0 [facility] Comment on above: Performed By: #### L 100.0100, L500.2500, L300.3900 #### [facility] [address] [place], [address] MCHC (RBC) [Mass/Vol] 33.4 g/dL Normal 32-36 [facility] Comment on above: Performed By: #### L 100.0100, L500.2500, L300.3900 #### [facility] [address] [place], [address] MCV (RBC) [Entitic vol] 92.0 fL Normal 80-94 [facility] Comment on above: Performed By: #### L 100.0100, L500.2500, L300.3900 #### [facility] [address] [place], [address] Monocytes/100 WBC (Bld) 9.2 % Normal 0-10 [facility] Comment on above: Performed By: #### L 100.0100, L500.2500, L300.3900 #### [facility] [address] [place], [address] Neutrophils/100 WBC (Bld) 62.1 % Normal 47-70 [facility] Comment on above: Performed By: #### L 100.0100, L500.2500, L300.3900 #### [facility] [address] [place], [address] Nucleated RBC (Bld) [#/Vol] 0 10*3/uL Normal 0-5 [facility] Comment on above: Performed By: #### L 100.0100, L500.2500, L300.3900 #### [facility] [address] [place], [address] Platelet mean volume (Bld) [Entitic vol] 9.5 fL Normal 6.2-12.0 [facility] Comment on above: Performed By: #### L 100.0100, L500.2500, L300.3900 #### [facility] [address] [place], [address] Platelets (Bld) [#/Vol] 234 10*3/uL Normal 150-450 [facility] Comment on above: Performed By: #### L 100.0100, L500.2500, L300.3900 #### [facility] [address] [place], [address] RBC (Bld) [#/Vol] 5.24 10*6/uL Normal 4.6-6.2 [facility] Comment on above: Performed By: #### L 100.0100, L500.2500, L300.3900 #### [facility] [address] [place], [address] RDW SD 44.2 fl High 35.1-43.9 [facility] Comment on above: Performed By: #### L 100.0100, L500.2500, L300.3900 #### [facility] [address] [place], [address] WBC (Bld) [#/Vol] 6.4 10*3/uL Normal 4.4-11.0 [facility] Comment on above: Performed By: #### L 100.0100, L500.2500, L300.3900 #### [facility] [address] [place], [address] Chest PA and Lateralon 06-11 Chest PA and Lateral [facility] Imaging Services [address] [place] [address] Chest PA and Lateral MR#: [id number] Acct: [id number] Name: ARACELI RENTERIA Rep #: [id number] : 1950 M 72 From: Kimani Greene MD PCP: Dr. Dee Albrecht, DO Status: PRE [facility] Study: Chest PA and Lateral Date of Exam: 06/11/23 Exam# [id number] Ordering Dr: Thomas Dumont NP ORAL COMMUNICATION INSTRUCTOR-C [id number] STUDY: X-RAY CHEST REASON FOR EXAM: Male, 72 years old. Pre-operative: [facility] TECHNIQUE: PA and lateral views of the chest. COMPARISON: None. FINDINGS: The lungs are clear and expanded. There is no demonstrated pleural abnormality. Normal size heart. Normal mediastinum and jim. Normal visualized pulmonary arteries. Normal visualized aortic arch and descending thoracic aorta. Normal visualized thoracic spine. Normal visualized ribs, clavicles, and shoulders. There is no demonstrated abnormality of the visualized soft tissue structures of the upper abdomen. RAD/Chest PA and Lateral IMPRESSION: Normal x-ray examination of the chest. Electronically Signed: Kimani Greene MD at 22:07 EST , CC: AFUA Dumont; Dr. Dee Albrecht DO Resource Conservation Manager: Signed Normal [facility] Determination of erythrocyte mean corpuscular volume (MCV)Ordered By: Thomas Dumont on 06-11-2023 MCV (RBC) [Entitic vol] 92.0 fL 80-94 [facility] Hematocrit Auto (Bld) [Volum e fraction]Ordered By: Thomas Dumont on 06-11-2023 Hematocrit (Bld) [Volume fraction] 48.2 % 40-54 [facility] INR in Blood by Coagulation assayOrdered By: Thomas Dumont on 06-11-2023 INR Coag (Bld) [Relative time] 1.0 {INR} [facility] Laboratory - Chemistry and C hemistry - challengeOrdered By: Thomas Dmuont on 06-11-2023 CO2 [Moles/Vol] 30.0 mmol/L 21.0-32.0 [facility] Urea nitrogen/Creatinine [Mass ratio] 16.3 mg/mg 10-20 [facility] Laboratory - CoagulationOrde red By: Thomas Dumont on 06-11-2023 PT Coag (PPP) [Time] 13.2 s 11.7-14.9 [facility] Laboratory - Hematology and Cell countsOrdered By: Thomas Dumont on 06-11-2023 Erythrocyte distribution width (RBC) [Entitic vol] 44.2 fL 35.1-43.9 [facility] Erythrocyte distribution width (RBC) [Ratio] 13.1 % 11.6-14.6 [facility] Immature granulocytes/100 WBC (Bld) 0.200 % 0.0-0.9 [facility] Comment on above: IG% - Immature Granu locytes (promyelocytes, myelocytes and metamyelocytes) > 1% indicates that a LEFT SHIFT is Present. MCH (RBC) [Entitic mass] 30.7 pg 27.0-32.0 [facility] Nucleated RBC/100 WBC (Bld) [Ratio] 0 % 0-5 [facility] MCHC Auto (RBC) [Mass/Vol]Or dered By: Thomas Dumont on 06-11-2023 MCHC (RBC) [Mass/Vol] 33.4 g/dL 32-36 [facility] No Panel InformationOrdered By: Thomas Dumotn on 06-11-2023 Estimated GFR (MDRD) Amer 103 mL/min >60 [facility] Comment on above: GFR Calc Estimated GFR (MDRD) Non-Af Amer 85 mL/min >60 [facility] Comment on above: Non- GFR Calc Platelets bldOrdered By: Chester Dumont on 06-11-2023 Platelets (Bld) [#/Vol] 234 10*3/uL 150-450 [facility] Prothrombin Time w/INRon INR Coag (PPP) [Relative time] 1.0 {INR} Normal [facility] Comment on above: Performed By: #### L 100.0100, L500.2500, L300.3900 #### [facility] [address] [place], [place], [id number] PT Coag (PPP) [Time] 13.2 s Normal 11.7-14.9 [facility] Comment on above: Performed By: #### L 100.0100, L500.2500, L300.3900 #### [facility] [address] [place], [address] Pulmonary Visit Reporton Pulmonary Visit Report [facility] [place] [address] [place] [address] OFFICE VISIT Date of Service: 06/11/23 MR#: [id number] Acct: [id number] Name: ARACELI RENTERIA Rep #: [id number] : 1950 Provider: AFUA Henley Age/Sex: 72/M [place] [facility] Status: Signed Assessment and Plan Assessment and Plan (1) Sleep concern: Plan: Negative polysomnogram. The process of evaluating the data discussed in detail with the patient to reassure him that the results were reliable. There was plenty of time recorded. He had times been on his back as well as off supine. Even on supine his AHI is 2.9, still negative. The patient was comfortable with these results. No follow-up is necessary. HPI Sleep concern Chief Complaint: Witnessed apneas HPI Comments Details: This patient presents to the office today for initial consultation regarding concern for obstructive sleep apnea. He is ambulatory. The patient reports that he rarely snores. On occasion his has witnessed him having apneic events when sleeping. He feels rested about 5 out of 7 mornings. He does admit to napping a lot. He does reportedly nod off to sleep when reading. He has 1-2 episodes of nocturia each night. He denies any difficulty with morning headaches. 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 He has never seen a neonatal icu coordinator. He was a very light smoker but quit completely 30 years ago. He has never been prescribed an inhaler. Past medical family history significant for: Mother was on [id number] inhalers, at the age of 85 after heart attack. Father at around 85 or 86 years old because of a stroke. He has 3 brothers and 2 sisters, all have good health. He has no biological children. He denies any difficulty with shortness of breath. He is an avid cyclist. He reports that at times when he is really pedaling hard uphill he will experience some shortness of breath. He denies any difficulty with chest tightness, chest pain, wheezing or palpitations. He denies any cough, sputum production or hemoptysis. He has not had any fever, chills or body aches. Test results personally reviewed with the patient: Polysomnogram completed on May 30, 2023. Overall AHI 1.9 events per hour. Impression is that this test does not meet the criteria used to define the presence of sleep apnea. Intake Vital Signs 05/11/23 15:50 06/11/23 07:41 Height 5 ft 11 in 5 ft 11 in Weight: 177 lb 178 lb 2 oz BMI 24.7 24.8 BP 83/52 L 104/76 Blood Pressure Location Lt brachial Lt brachial Position Sitting Sitting Respiration 16 16 Pulse 82 70 Pulse Source Monitor Monitor Temp 97.3 F L Temperature Source Temporal Artery Pulse Oximetry (%) 96 Oxygen Delivery Method room air Intake Visit Reasons: Sleep problems Crack Off Person Required: No DME Vendor: none Accompanied by: Self Is patient in pain?: No Allergies No Known Allergies Allergy (Unverified 06/11/23 07:46) Medications multivitamin 1 tab PO DAILY 02/05/23 [History Confirmed 06/11/23] cholecalciferol (vitamin D3) 250 mcg (10,000 unit) capsule 250 mcg PO DAILY 02/06/23 [History Confirmed 06/11/23] lutein 25 mg-zeaxanthin 5 mg capsule (Ocuvite Lutein) 1 cap PO DAILY 02/06/23 [History Confirmed 06/11/23] aspirin 81 mg tablet,delayed release (Adult Low Dose Aspirin) 81 mg PO DAILY 05/11/23 [History Confirmed 06/11/23] [facility] Medical History (Reviewed 06/11/23 @ 07:56 by Dulce Henley ORAL COMMUNICATION INSTRUCTOR, ORAL COMMUNICATION INSTRUCTOR-C) Abnormal EKG Atrial fibrillation Bradycardia Irregular heart beat Pneumonia due to COVID-19 virus Surgical History (Reviewed 06/11/23 @ 07:56 by Dulce Henley ORAL COMMUNICATION INSTRUCTOR, ORAL COMMUNICATION INSTRUCTOR-C) History of colonoscopy Family History (Reviewed 12/18/23 @ 07:56 by Dulce Henley ORAL COMMUNICATION INSTRUCTOR, ORAL COMMUNICATION INSTRUCTOR-C) Mother Myocardial infarction, Onset Age: 86 Social History Smoking Status: Never smoker alcohol intake: never substance use type: does not use caffeine: Yes (occasionally) Review of Systems Resp Respiratory: Yes as per HPI Exam Const Constitutional: Positive conversant, cooperative, in no acute respiratory distress, healthy appearing, well developed, well nourished and good hygiene Head Head: Yes normocephalic, Yes atraumatic and No cyanosis of lips/distal nose Eyes Eye: Positive clear conjunctiva; Negative nystagmus or scleral abnormality Ears Ear: Positive hard of hearing and external ears normal Nose Nose: Yes external nose normal Mouth Mouth: Positive oral mucosae normal, good dentition and posterior oropharynx is adequate Mallampati Score: I: Mallampati Score Neck Neck: Positive normal visual inspection, full ROM and trachea midline Chest Wall Chest: Positive normal (more content not included)... Normal [facility] Serum or plasma calcium vitor urement (mass/volume)Ordered By: Thomas Dumont on 06-11-2023 Calcium [Mass/Vol] 8.3 mg/dL 8.5-10.1 [facility] Serum or plasma creatinine m easurement (mass/volume)Ordered By: Thomas Dumont on 06-11-2023 Creatinine [Mass/Vol] 0.92 mg/dL 0.70-1.30 [facility] Comment on above: The validity of the calculated GFR & GFRAA in patients over 70 years has not been determined. Clinical correlation is essential. Serum or plasma urea nitroge n measurement (mass/volume)Ordered By: Thomas Dumont on 06-11-2023 Urea nitrogen [Mass/Vol] 15 mg/dL 01-09 [facility] Thin prep Papanicolaou smear with manual screeningOrdered By: Thomas Dumont on 06-11-2023 Thin prep Papanicolaou smear with manual screening 4 11-06 [facility] 12 Lead [place] [facility] [place]-11-2023 12 Lead EKG performed by [facility] [address] [place] [address] 12 Lead EKG performed [place] [facility] 05/11/23 1612 MR#: [id number] Acct: [id number] Name: ARACELI RENTERIA Rep #: [id number] : 1950 72 From: Thomas Dumont NP ORAL COMMUNICATION INSTRUCTOR-C Attending Dr: MAGGIE PinedaC Status: DEP AMB Ordering Dr: Thomas Dumont NP ORAL COMMUNICATION INSTRUCTOR-C Date: 05/11/23 [place] [facility] [place] Sex: M C Admitted: BMS/12 Lead EKG performed by [facility] ECG Report Interpretation -----Atrial fibrillation -irregular conduction -Old anteroseptal infarct. - Nonspecific T-abnormality. ABNORMAL Electronically signed on 05/16/2023 at 07:34 by Sloan Cedillo Software Version [id number] 05/16/23 0740 Date Thomas Dumont NP ORAL COMMUNICATION INSTRUCTOR-C CC: Dr. Dee Albrecht, Date Dictated: 05/11/23 161 Date Transcribed: 05/11/231611 Resource Conservation Manager: SYLWIA Signed Normal [facility] Cardiology Visit Reporton Cardiology Visit Report [facility] [address] [place] [address]. [address] [place] [address] OFFICE VISIT Date of Service: 05/11/23 MR#: [id number] Acct: [id number] Name: ARACELI RENTERIA Rep #: [id number] : 1950 Provider: AFUA erickson Age/Sex: 72/M [place] [facility] [place] Status: Signed HPI [facility] History of Present Illness Details: This patient is here for follow-up visit. He continues to ride his bicycle 3 times a week, riding for 45 miles each time. He denies chest, arm, jaw, or neck discomfort. He denies palpitations. He denies bilateral lower extremity edema. He denies claudication. He states shortness of breath with activity such as increased exertion. He denies shortness of breath at rest, orthopnea, or PND. He denies chronic cough. He denies significant, sudden weight gain. He denies lightheadedness, dizziness, near- syncope, or syncope. He denies blood in urine, blood in stool, or epistaxis. He denies fever with chills. He denies myalgia. He denies fatigue. His exercise level has remained stable. Intake Vital Signs 04/03/23 13:14 05/11/23 15:50 05/11/23 16:10 05/11/23 16:12 Height 5 ft 11 in 5 ft 11 in Weight: 172 lb 177 lb BMI 24.0 24.7 BP 113/73 83/52 L 81/48 L Blood Pressure Location Lt brachial Lt brachial Rt brachial Position Sitting Sitting Sitting Respiration 16 16 Pulse 64 82 48 L 68 Pulse Source Monitor Monitor Monitor Auscultation Intake Visit Reasons: Per JR: MICHELINE criteria for MATILDE L.L. Crack Off Person Required: No Accompanied by: Is patient in pain?: No Allergies No Known Allergies Allergy (Unverified 05/11/23 16:04) Medications multivitamin 1 tab PO DAILY 02/05/23 [History Confirmed 05/11/23] cholecalciferol (vitamin D3) 250 mcg (10,000 unit) capsule 250 mcg PO DAILY 02/06/23 [History Confirmed 05/11/23] lutein 25 mg-zeaxanthin 5 mg capsule (Ocuvite Lutein) 1 cap PO DAILY 02/06/23 [History Confirmed 05/11/23] aspirin 81 mg tablet,delayed release (Adult Low Dose Aspirin) 81 mg PO DAILY 05/11/23 [History Confirmed 05/11/23] [facility] Medical History Abnormal EKG Atrial fibrillation Bradycardia Irregular heart beat Pneumonia due to COVID-19 virus Surgical History History of colonoscopy Family History Mother Myocardial infarction, Onset Age: 86 Social History Smoking Status: Never smoker alcohol intake: never substance use type: does not use caffeine: Yes (occasionally) ROS Const Const: Positive for daytime sleepiness (2-3 naps per day) and other (stops breathing at night); Negative for fatigue, weakness, headache(s), frequent falls, difficulty sleeping or excessive sweating Eyes Eyes: Negative for loss of peripheral vision, transient loss of vision, blurry vision, double vision or tunnel vision ENT ENT: Negative for headache(s), dizziness, Nosebleed/epistaxis or balance problems Cardio Chest Pain: No Palpitations: No Edema: None Muscle aches with walking: None Resp Respiratory: Positive for SOB with activity (With increased exertion); Negative for SOB at rest, SOB orthopnea SOB lying down, Cough or paroxysmal nocturnal dyspnea GI GI: Negative nausea, vomiting, heartburn or black,tarry stools : Negative for hematuria Musc Musc: Negative for muscle aches/ myalgia, muscle weakness, joint pain or balance problems Skin Skin: Negative non-healing lesions, rash or unusual bruising Neuro Neuro: Negative for dizziness, lightheadedness, near syncope, syncope, frequent falls, headache(s), weakness, blurry vision, double vision or lack of coordination Daniel Hematologic/Lymphatic : Negative for easy bleeding or easy bruising Endo Endo: Negative for fatigue, excessive sweating or increased thirst/drinking Psych Psych: Negative for anxiety or depression Allergy Allergy/Immunology: Negative for hives and Negative for rash Cardiology Exam Const Appearance: cooperative, healthy appearing, comfortable and no acute distress Nutritional Appearance: average body habitus and well nourished Orientation: alert, awake and oriented x3 Head Head: normal to inspection Ears: hearing grossly normal bilaterally Nose: external nose normal Face and Sinus: face symmetric Mouth: moist mucous membranes Eyes General: appearance normal, both eyes and all related structures Eyelids: eyelids normal EOM: EOM intact bilaterally Neck Neck: normal visual inspection and no JVD Carotids: normal carotid upstroke Chest Chest inspection: normal inspection of the chest, symmetric chest movement and normal respiratory effort; Negative cough Auscultation: Bilateral: Clear to Auscultation Cardio R (more content not included)... Normal [facility] Basophil percentageOrdered B y: Khoa Goldstein on 04-10-2023 Cholesterol [Mass/Vol] 176 mg/dL <200 [facility] Comment on above: <200 mg/dL Desirable 200-240 mg/dL Borderline >240 mg/dL High Risk Triglyceride [Mass/Vol] 73 mg/dL <199 [facility] Comment on above: The drugs N-Acetylcy steine and Metamizole may falsely depress this assay.Serum Triglycerides Reference Interval Normal <150 mg/dL Borderline high 150 - 199 mg/dL High 200 - 499 mg/dL Very High > or = 500 mg/dL Lipid Profileon 04-10-2023 Cholesterol [Mass/Vol] 176 mg/dL Normal 200 [facility] Comment on above: Result Comment: <200 mg/dL Desirable 200-240 mg/dL Borderline >240 mg/dL High Risk Performed By: #### L 500.4100 #### [facility] [address] [place], [address] Cholesterol in HDL [Mass/Vol] 67 mg/dL Normal [facility] Comment on above: Result Comment: The drugs N-Acetylcysteine and Metamizole may falsely depress this assay. Reference Range HDL <40 mg/dL Low HDL Cholesterol HDL >or= 60 mg/dL High HDL Cholesterol Performed By: #### L 500.4100 #### [facility] [address] [place], [address] Cholesterol in LDL [Mass/Vol] 94 mg/dL Normal 0-130 [facility] Comment on above: Performed By: #### L 500.4100 #### [facility] [address] [place], [address] Cholesterol in VLDL [Mass/Vol] 15 mg/dL Normal 5-40 [facility] Comment on above: Performed By: #### L 500.4100 #### [facility] [address] [place], [address] Triglyceride [Mass/Vol] 73 mg/dL Normal [facility] Comment on above: Result Comment: The drugs N-Acetylcysteine and Metamizole may falsely depress this assay. Serum Triglycerides Reference Interval Normal <150 mg/dL Borderline high 150 - 199 mg/dL High 200 - 499 mg/dL Very High > or = 500 mg/dL Performed By: #### L 500.4100 #### [facility] [address] [place], [address] Serum or plasma cholesterol in HDL measurement (mass/volume)Ordered By: Khoa Goldstein on 04-10-2023 Cholesterol in HDL [Mass/Vol] 67 mg/dL >40 [facility] Comment on above: The drugs N-Acetylcy steine and Metamizole may falsely depress this assay. Reference Range HDL <40 mg/dL Low HDL Cholesterol HDL >or= 60 mg/dL High HDL Cholesterol Serum or plasma cholesterol in VLDL measurement (mass/volume)Ordered By: Khoa Goldstein on 04-10-2023 Cholesterol in VLDL [Mass/Vol] 15 mg/dL 5-40 [facility] Serum or plasma low density lipoprotein (LDL) cholesterol measurement (mass/volume)Ordered By: Khoa Goldstein on 04-10-2023 Cholesterol in LDL [Mass/Vol] 94 mg/dL 0-130 [facility] Cardiology Visit Reporton Cardiology Visit Report [facility] [address] [place] [address] OFFICE VISIT Date of Service: 04/03/23 MR#: [id number] Acct: [id number] Name: ARACELI RENTERIA Rep #: [id number] : 1950 Provider: Dr. Khoa Goldstein MD Age/Sex: 72/M [place] [facility] Status: Signed HPI HPI History of Present Illness Details: This patient is here for follow-up visit. Denies any complaints. No chest pain. No shortness of breath. Denies any palpitations. No lightheadedness or dizziness. No syncope or presyncope. He continues to ride his bicycle 3 times a week, riding for 45 miles each time. Patient's echocardiogram showed normal left ventricular systolic function. Moderate biatrial dilatation. Mild mitral valve insufficiency with mild to moderate tricuspid insufficiency. Stress Myoview showed possible mild inferior and apical ischemia. Intake Vital Signs 02/06/23 10:07 04/03/23 13:14 Height 5 ft 11 in 5 ft 11 in Weight: 172 lb BMI 24.0 BP 113/73 Blood Pressure Location Lt brachial Position Sitting Respiration 16 Pulse 64 Pulse Source Monitor Intake Visit Reasons: 8 W FU Crack Off Person Required: No Accompanied by: Self Is patient in pain?: No Allergies No Known Allergies Allergy (Unverified 04/03/23 13:15) Medications multivitamin 1 tab PO DAILY 02/05/23 [History Confirmed 04/03/23] aspirin 325 mg tablet,delayed release 325 mg PO DAILY 02/06/23 [History Confirmed 04/03/23] cholecalciferol (vitamin D3) 250 mcg (10,000 unit) capsule 250 mcg PO DAILY 02/06/23 [History Confirmed 04/03/23] lutein 25 mg-zeaxanthin 5 mg capsule (Ocuvite Lutein) 1 cap PO DAILY 02/06/23 [History Confirmed 04/03/23] Ejection fraction %: 60 to 64 PFSH Medical History Abnormal EKG Atrial fibrillation Bradycardia Irregular heart beat Pneumonia due to COVID-19 virus Surgical History History of colonoscopy Family History Mother Myocardial infarction, Onset Age: 86 Social History Smoking Status: Never smoker alcohol intake: never substance use type: does not use caffeine: Yes (occasionally) ROS Const Const: Negative for fatigue or weakness ENT ENT: Negative for dizziness or balance problems Cardio Chest Pain: No Palpitations: No Edema: None Muscle aches with walking: None Resp Respiratory: Negative for SOB with activity, SOB at rest or SOB orthopnea SOB lying down GI GI: Negative nausea, vomiting or heartburn Musc Musc: Negative for muscle weakness or balance problems Neuro Neuro: Negative for dizziness, lightheadedness, near syncope, syncope or weakness Endo Endo: Negative for fatigue Cardiology Exam Const Appearance: comfortable and no acute distress Nutritional Appearance: well nourished Neck Neck: no JVD Carotids: Negative bruit Chest Auscultation: Bilateral: Clear to Auscultation Cardio Rate: regular rate Rhythm: regular rhythm Heart sounds: S1 normal and S2 normal Neuro General: patient alert, patient awake and patient oriented x3 Extremities Lower Extremity Edema: None: Bilateral Supplemental Info Supplemental Information Stress Test from 03/09/2023: Impression: 1. Technically adequate (percent predicted maximal heart rate greater than 85%) exercise tolerance test 2. Peak exercise ECG with no ischemic changes 3. Rest and stress SPECT Cardiolite nuclear imaging demonstrate possible mild inferior and apical ischemia. 5. The gated Cardiolite study reports an LVEF of 57%. Echocardiogram 03/09/2023: Interpretation Summary The estimated ejection fraction is 60 %. Mild (1+) mitral valve insufficiency. Bubble contrast study negative for right to left interatrial shunt. There is moderate biatrial dilatation. Mild to moderate (1-2+) tricuspid valve insufficiency. Assessment and Plan Assessment and Plan (1) Atrial fibrillation: Status: Chronic Qualifiers: Atrial fibrillation type: persistent (not longstanding) Qualified Code(s): I48.19 - Other persistent atrial fibrillation Plan: Continue aspirin. Ventricular rate controlled. I offered the patient referral to electrophysiology for evaluation for possible A-fib ablation. He does not wish to do that at present. (2) Abnormal nuclear stress test: Status: Acute Plan: Mild inferior and apical ischemia. Patient is completely asymptomatic. Rides bicycle 3 times a week for 45 miles each. Discussed options with the patient. Continuing medical therapy with risk factor modification versus coronary angiography discussed with patient. Risks benefits alternatives of each explained. He understand these and does not (more content not included)... Normal [facility] No Panel InformationOrdered By: Khoa Goldstein on 02-06-2023 Thyroid Stimulating Hormone (TSH) 1.95 uIU/mL 0.358-3.74 [facility] .Auto Diffon 01-02-2023 Basophil, Absolute 0.1 10 3/mcL Normal 0.0-0.2 Count includes the [facility] ([place]) Comment on above: Performed By: #### G FR, FT3, FT4, PSA, CBC, ADIFF, ANEU, MG, CMP, TSH #### [address] [place], [place] [address] Basophils/100 WBC (Bld) 1.1 % Normal 0.0-2.5 [facility] ([place]) Comment on above: Performed By: #### G FR, FT3, FT4, PSA, CBC, ADIFF, ANEU, MG, CMP, TSH #### [address] [place], [place] [address] Eosinophil, Absolute 0.1 10 3/mcL Normal 0.0-0.4 [facility] ([place]) Comment on above: Performed By: #### G FR, FT3, FT4, PSA, CBC, ADIFF, ANEU, MG, CMP, TSH #### [address] [address] Eosinophils/100 WBC (Bld) 3.1 % Normal 0.0-7.0 [facility] ([place]) Comment on above: Performed By: #### G FR, FT3, FT4, PSA, CBC, ADIFF, ANEU, MG, CMP, TSH #### [address] [address] Lymphocyte, Absolute 1.5 10 3/mcL Normal 0.8-3.9 [facility] ([place]) Comment on above: Performed By: #### G FR, FT3, FT4, PSA, CBC, ADIFF, ANEU, MG, CMP, TSH #### [address] [address] Lymphocytes/100 WBC (Bld) 31.7 % Normal 10.0-50.0 [facility] ([place] Comment on above: Performed By: #### G FR, FT3, FT4, PSA, CBC, ADIFF, ANEU, MG, CMP, TSH #### [address] [address] Monocyte, Absolute 0.5 10 3/mcL Normal 0.2-1.0 Count includes the [facility] ([place]) Comment on above: Performed By: #### G FR, FT3, FT4, PSA, CBC, ADIFF, ANEU, MG, CMP, TSH #### [address] [address] Monocytes/100 WBC (Bld) 11.4 % Normal 1.7-13.0 [facility] ([place]) Comment on above: Performed By: #### G FR, FT3, FT4, PSA, CBC, ADIFF, ANEU, MG, CMP, TSH #### [address] [address] Neutrophils/100 WBC (Bld) 52.7 % Normal 37.0-80.0 [facility] ([place] Comment on above: Performed By: #### G FR, FT3, FT4, PSA, CBC, ADIFF, ANEU, MG, CMP, TSH #### [address] [address] .GFRon 01-02-2023 GFR 88 ml/min/1.73sqm Normal [facility] ([place]) Comment on above: Result Comment: GFR Population mean for , Non- Americans Ages 20-29 = 116 mL/min/1.73 sq.m. Ages 30-39 = 107 mL/min/1.73 sq.m. Ages 40-49 = 99 mL/min/1.73 sq.m. Ages 50-59 = 93 mL/min/1.73 sq.m. Ages 60-69 = 85 mL/min/1.73 sq.m. Ages 70+ = 75 mL/min/1.73 sq.m. Chronic Kidney Disease: Less than 60 mL/min/1.73 square meters End Stage Renal Disease: Less than 15 mL/min/1.73 square meters Performed By: #### G FR, FT3, FT4, PSA, CBC, ADIFF, ANEU, MG, CMP, TSH #### [address] [address] GFR Non- 72 ml/min/1.73sqm Normal [facility] ([place]) Comment on above: Result Comment: GFR Population mean for , Non- Americans Ages 20-29 = 116 mL/min/1.73 sq.m. Ages 30-39 = 107 mL/min/1.73 sq.m. Ages 40-49 = 99 mL/min/1.73 sq.m. Ages 50-59 = 93 mL/min/1.73 sq.m. Ages 60-69 = 85 mL/min/1.73 sq.m. Ages 70+ = 75 mL/min/1.73 sq.m. Chronic Kidney Disease: Less than 60 mL/min/1.73 square meters End Stage Renal Disease: Less than 15 mL/min/1.73 square meters Performed By: #### G FR, FT3, FT4, PSA, CBC, ADIFF, ANEU, MG, CMP, TSH #### [address] [address] .NEUABSon 01-02-2023 Neutrophil, Absolute 2.4 10 3/mcL Low 2.9-6.2 [facility] ([place]) Comment on above: Performed By: #### G FR, FT3, FT4, PSA, CBC, ADIFF, ANEU, MG, CMP, TSH #### [address] [address] CBCon 01-02-2023 Erythrocyte distribution width (RBC) [Ratio] 13.7 % Normal 11.5-14.5 [facility] ([place]) Comment on above: Performed By: #### G FR, FT3, FT4, PSA, CBC, ADIFF, ANEU, MG, CMP, TSH #### [address] [place] [address] Hematocrit (Bld) [Volume fraction] 47.2 % Normal 42.0-52.0 [facility] ([place]) Comment on above: Performed By: #### G FR, FT3, FT4, PSA, CBC, ADIFF, ANEU, MG, CMP, TSH #### [address] [place] [address] Hgb 16.0 G/dL Normal 14.0-18.0 [facility] ([place]) Comment on above: Performed By: #### G FR, FT3, FT4, PSA, CBC, ADIFF, ANEU, MG, CMP, TSH #### [address] [place] [address] MCH (RBC) [Entitic mass] 31.1 pg Normal 27.0-31.2 [facility] ([place]) Comment on above: Performed By: #### G FR, FT3, FT4, PSA, CBC, ADIFF, ANEU, MG, CMP, TSH #### [place] [address] MCHC 33.9 G/dL Normal 31.8-35.4 [facility] ([place] Comment on above: Performed By: #### G FR, FT3, FT4, PSA, CBC, ADIFF, ANEU, MG, CMP, TSH #### [address] [address] MCV (RBC) [Entitic vol] 91.7 fL Normal 80.0-94.0 [facility] ([place] Comment on above: Performed By: #### G FR, FT3, FT4, PSA, CBC, ADIFF, ANEU, MG, CMP, TSH #### [address] [address] Platelet 216 10 3/mcL Normal 130-400 [facility] ([place]) Comment on above: Performed By: #### G FR, FT3, FT4, PSA, CBC, ADIFF, ANEU, MG, CMP, TSH #### [address] [address] Platelet mean volume (Bld) [Entitic vol] 7.7 fL Normal 7.4-10.4 [facility] ([place] Comment on above: Performed By: #### G FR, FT3, FT4, PSA, CBC, ADIFF, ANEU, MG, CMP, TSH #### [address] [address] RBC 5.15 10 6/mcL Normal 4.04-6.13 [facility] ([place]) Comment on above: Performed By: #### G FR, FT3, FT4, PSA, CBC, ADIFF, ANEU, MG, CMP, TSH #### [address] [address] WBC 4.6 10 3/mcL Normal 4.6-10.8 [facility] ([place] Comment on above: Performed By: #### G FR, FT3, FT4, PSA, CBC, ADIFF, ANEU, MG, CMP, TSH #### [address] [address] CMPon 01-02-2023 Albumin Level 3.7 G/dL Normal 3.4-4.8 [facility] ([place] Comment on above: Performed By: #### G FR, FT3, FT4, PSA, CBC, ADIFF, ANEU, MG, CMP, TSH #### [address] [address] Albumin/Globulin [Mass ratio] 1.3 {ratio} Normal 1.1-2.5 [facility] ([place]) Comment on above: Performed By: #### G FR, FT3, FT4, PSA, CBC, ADIFF, ANEU, MG, CMP, TSH #### [address] [address] ALP [Catalytic activity/Vol] 76 U/L Normal 40-135 [facility] ([place]) Comment on above: Performed By: #### G FR, FT3, FT4, PSA, CBC, ADIFF, ANEU, MG, CMP, TSH #### [address] [address] ALT [Catalytic activity/Vol] 28 U/L Normal 16-63 [facility] ([place]) Comment on above: Performed By: #### G FR, FT3, FT4, PSA, CBC, ADIFF, ANEU, MG, CMP, TSH #### [address] [address] AST [Catalytic activity/Vol] 23 U/L Normal 10-40 [facility] ([place]) Comment on above: Performed By: #### G FR, FT3, FT4, PSA, CBC, ADIFF, ANEU, MG, CMP, TSH #### [address] [address] Bili Total 0.9 mg/dL Normal 0.2-1.0 [facility] ([place]) Comment on above: Result Comment: Use of this assay is not recommended for patients undergoing treatment with eltrombopag due to the potential for falsely elevated results. Performed By: #### G FR, FT3, FT4, PSA, CBC, ADIFF, ANEU, MG, CMP, TSH #### [address] [address] BUN/Creatinine Ratio 16 ratio Normal 7-27 Count includes the [facility] ([place]) Comment on above: Performed By: #### G FR, FT3, FT4, PSA, CBC, ADIFF, ANEU, MG, CMP, TSH #### [address] [address] Calcium [Mass/Vol] 8.9 mg/dL Normal 8.4-10.2 [facility] ([place]) Comment on above: Performed By: #### G FR, FT3, FT4, PSA, CBC, ADIFF, ANEU, MG, CMP, TSH #### [address] [address] Chloride [Moles/Vol] 105 mmol/L Normal 98-107 Count includes the [facility] ([place]) Comment on above: Performed By: #### G FR, FT3, FT4, PSA, CBC, ADIFF, ANEU, MG, CMP, TSH #### [address] [place] [address] CO2 [Moles/Vol] 30 mmol/L Normal 23-31 [facility] ([place]) Comment on above: Performed By: #### G FR, FT3, FT4, PSA, CBC, ADIFF, ANEU, MG, CMP, TSH #### [address] [place] [address] Creatinine [Mass/Vol] 1.01 mg/dL Normal 0.70-1.30 [facility] ([place]) Comment on above: Performed By: #### G FR, FT3, FT4, PSA, CBC, ADIFF, ANEU, MG, CMP, TSH #### [address] [address] Electrolyte Balance 7.0 mEq/L Normal 4.0-15.0 [facility] ([place]) Comment on above: Performed By: #### G FR, FT3, FT4, PSA, CBC, ADIFF, ANEU, MG, CMP, TSH #### [address] [address] Globulin 2.8 G/dL Normal [facility] ([place]) Comment on above: Performed By: #### G FR, FT3, FT4, PSA, CBC, ADIFF, ANEU, MG, CMP, TSH #### [address] [place] [address] Glucose [Mass/Vol] 101 mg/dL Normal 83-110 [facility] ([place]) Comment on above: Performed By: #### G FR, FT3, FT4, PSA, CBC, ADIFF, ANEU, MG, CMP, TSH #### [address] [address] Potassium [Moles/Vol] 4.9 mmol/L Normal 3.5-5.1 [facility] ([place]) Comment on above: Performed By: #### G FR, FT3, FT4, PSA, CBC, ADIFF, ANEU, MG, CMP, TSH #### [address] [address] Sodium [Moles/Vol] 142 mmol/L Normal 136-145 [facility] ([place]) Comment on above: Performed By: #### G FR, FT3, FT4, PSA, CBC, ADIFF, ANEU, MG, CMP, TSH #### [address] [address] Total Protein 6.5 G/dL Normal 6.4-8.2 [facility] ([place]) Comment on above: Performed By: #### G FR, FT3, FT4, PSA, CBC, ADIFF, ANEU, MG, CMP, TSH #### [address] [address] Urea nitrogen [Mass/Vol] 16 mg/dL Normal 7-18 [facility] ([place]) Comment on above: Performed By: #### G FR, FT3, FT4, PSA, CBC, ADIFF, ANEU, MG, CMP, TSH #### [address] [address] FT3on 01-02-2023 Free T3 [Mass/Vol] 2.39 pg/mL Normal 2.30-4.00 [facility] ([place] Comment on above: Performed By: #### G FR, FT3, FT4, PSA, CBC, ADIFF, ANEU, MG, CMP, TSH #### [address] [address] FT4on 01-02-2023 Free T4 [Mass/Vol] 0.66 ng/dL Low 0.76-1.46 [facility] ([place] Comment on above: Performed By: #### G FR, FT3, FT4, PSA, CBC, ADIFF, ANEU, MG, CMP, TSH #### [address] [place], [place] [address] LABORATORYOrdered By: SYSTEM SYSTEM on 01-02-2023 Albumin BCP dye [Mass/Vol] 3.7 G/dL Invalid Interpretation Code 3.4 - 4.8 G/dL AO ADM SS Albumin/Globulin [Mass ratio] 1.3 {ratio} Invalid Interpretation Code 1.1 - 2.5 ratio AO ADM SS ALP [Catalytic activity/Vol] 76 U/L Invalid Interpretation Code 40 - 135 U/L AO ADM SS ALT With P-5'-P [Catalytic activity/Vol] 28 U/L Invalid Interpretation Code 16 - 63 U/L AO ADM SS AST With P-5'-P [Catalytic activity/Vol] 23 U/L Invalid Interpretation Code 10 - 40 U/L AO ADM SS Basophil, Absolute 0.1 103/mcL Invalid Interpretation Code 0.0 - 0.2 10^3/mcL AO Workflow SS Basophils/100 WBC (Bld) 1.1 % Invalid Interpretation Code 0.0 - 2.5 % AO Workflow SS Bilirubin [Mass/Vol] 0.9 mg/dL Invalid Interpretation Code 0.2 - 1.0 mg/dL AO ADM SS Calcium [Mass/Vol] 8.9 mg/dL Invalid Interpretation Code 8.4 - 10.2 mg/dL AO ADM SS Chloride [Moles/Vol] 105 mmol/L Invalid Interpretation Code 98 - 107 mmol/L AO ADM SS CO2 [Moles/Vol] 30 mmol/L Invalid Interpretation Code 23 - 31 mmol/L AO ADM SS Creatinine [Mass/Vol] 1.01 mg/dL Invalid Interpretation Code 0.70 - 1.30 mg/dL AO ADM SS Electrolyte Balance 7.0 mEq/L Invalid Interpretation Code 4.0 - 15.0 mEq/L AO ADM SS Eosinophil, Absolute 0.1 103/mcL Invalid Interpretation Code 0.0 - 0.4 10^3/mcL AO Workflow SS Eosinophils/100 WBC (Bld) 3.1 % Invalid Interpretation Code 0.0 - 7.0 % AO Workflow SS Erythrocyte distribution width (RBC) [Ratio] 13.7 % Invalid Interpretation Code 11.5 - 14.5 % AO Workflow SS Free T3 [Mass/Vol] 2.39 pg/mL Invalid Interpretation Code 2.30 - 4.00 pg/mL AO ADM SS Free T4 [Mass/Vol] 0.66 ng/dL Invalid Interpretation Code 0.76 - 1.46 ng/dL AO ADM SS GFR/1.73 sq M.predicted among blacks MDRD (S/P/Bld) [Vol rate/Area] 88 ml/min/1.73sqm Invalid Interpretation Code AO Chemistry S GFR/1.73 sq M.predicted among non-blacks MDRD (S/P/Bld) [Vol rate/Area] 72 ml/min/1.73sqm Invalid Interpretation Code AO Chemistry S Globulin 2.8 G/dL Invalid Interpretation Code AO ADM SS Glucose [Mass/Vol] 101 mg/dL Invalid Interpretation Code 83 - 110 mg/dL AO ADM SS Hematocrit (Bld) [Volume fraction] 47.2 % Invalid Interpretation Code 42.0 - 52.0 % AO Workflow SS Hemoglobin (Bld) [Mass/Vol] 16.0 G/dL Invalid Interpretation Code 14.0 - 18.0 G/dL AO Workflow SS Lymphocyte, Absolute 1.5 103/mcL Invalid Interpretation Code 0.8 - 3.9 10^3/mcL AO Workflow SS Lymphocytes/100 WBC (Bld) 31.7 % Invalid Interpretation Code 10.0 - 50.0 % AO Workflow SS Magnesium [Mass/Vol] 2.1 mg/dL Invalid Interpretation Code 1.8 - 2.4 mg/dL AO ADM SS MCH (RBC) [Entitic mass] 31.1 pg Invalid Interpretation Code 27.0 - 31.2 pg AO Workflow SS MCHC 33.9 G/dL Invalid Interpretation Code 31.8 - 35.4 G/dL AO Workflow SS MCV (RBC) [Entitic vol] 91.7 fL Invalid Interpretation Code 80.0 - 94.0 fL AO Workflow SS Monocyte, Absolute 0.5 103/mcL Invalid Interpretation Code 0.2 - 1.0 10^3/mcL AO Workflow SS Monocytes/100 WBC (Bld) 11.4 % Invalid Interpretation Code 1.7 - 13.0 % AO Workflow SS Neutrophil, Absolute 2.4 103/mcL Invalid Interpretation Code 2.9 - 6.2 10^3/mcL AO Workflow SS Neutrophils/100 WBC (Bld) 52.7 % Invalid Interpretation Code 37.0 - 80.0 % AO Workflow SS Platelet mean volume (Bld) [Entitic vol] 7.7 fL Invalid Interpretation Code 7.4 - 10.4 fL AO Workflow SS Platelets (Bld) [#/Vol] 216 103/mcL Invalid Interpretation Code 130 - 400 10^3/mcL AO Workflow SS Potassium [Moles/Vol] 4.9 mmol/L Invalid Interpretation Code 3.5 - 5.1 mmol/L AO ADM SS Prostate specific Ag [Mass/Vol] 1.05 ng/mL Invalid Interpretation Code 0.00 - 4.00 ng/mL AO ADM SS Protein [Mass/Vol] 6.5 G/dL Invalid Interpretation Code 6.4 - 8.2 G/dL AO ADM SS RBC (Bld) [#/Vol] 5.15 106/mcL Invalid Interpretation Code 4.04 - 6.13 10^6/mcL AO Workflow SS Sodium [Moles/Vol] 142 mmol/L Invalid Interpretation Code 136 - 145 mmol/L AO ADM SS TSH Qn 1.60 m[IU]/L Invalid Interpretation Code 0.36 - 3.74 mcIU/mL AO ADM SS Urea nitrogen [Mass/Vol] 16 mg/dL Invalid Interpretation Code 7 - 18 mg/dL AO ADM SS Urea nitrogen/Creatinine [Mass ratio] 16 ratio Invalid Interpretation Code 7 - 27 ratio AO ADM SS WBC (Bld) [#/Vol] 4.6 103/mcL Invalid Interpretation Code 4.6 - 10.8 10^3/mcL AO Workflow SS MGon 01-02-2023 Magnesium [Mass/Vol] 2.1 mg/dL Normal 1.8-2.4 Count includes the [facility] ([place]) Comment on above: Performed By: #### G FR, FT3, FT4, PSA, CBC, ADIFF, ANEU, MG, CMP, TSH #### Edmundo [address] [address] PSAon 01-02-2023 Prostate Specific Antigen 1.05 ng/mL Normal 0.00-4.00 [facility] ([place]) Comment on above: Performed By: #### G FR, FT3, FT4, PSA, CBC, ADIFF, ANEU, MG, CMP, TSH #### [address] [place], [place] [address] TSHon 01-02-2023 TSH Qn 1.60 m[IU]/L Normal 0.36-3.74 [facility] ([place]) Comment on above: Performed By: #### G FR, FT3, FT4, PSA, CBC, ADIFF, ANEU, MG, CMP, TSH #### [address] [place], [place] [address] Final Surgical Pathology Rep [facility] 09-06-2022 Final Surgical Pathology Report . Pathology Reports Accession: Collected Date/Time: Received Date/Time: Pathologist: [id number] 09/04/2022 11:57 EDT 09/05/2022 13:06 EDT VERNON MARTINEZ MD Final Surgical Pathology Report DIAGNOSIS: RIGHT COLON POLYP: - TUBULAR ADENOMA COMMENT: [facility] - [id number] CLINICAL INFORMATION: Procedure: COLONOSCOPY Preoperative diagnosis: SCREENING Postoperative diagnosis: SAME SPECIMEN: A RIGHT COLON POLYP GROSS DESCRIPTION: All parts labelled with patient name and [id number] Received in formalin labelled right colon polyp are two fragments of pink-young tissue each measuring 0.1 and 0.3 cm. TS-1 Doris Brooks, Grossing Skein Tier Dictated by Doris Brooks MICROSCOPIC DESCRIPTION: The microscopic examination is performed, except in the case of Gross Only. Electronically Signed by Pathology Report verified by [facility] VERNON MARTINEZ Sign out Date: 09/06/2022 16:07 Performing Lab: [facility], [address] [place] [address] Pathology Dept Normal [facility] ([place]) .GFRon 01-10-2022 GFR 84 ml/min/1.73sqm Normal [facility] ([place]) Comment on above: Result Comment: GFR Population mean for , Non- Americans Ages 20-29 = 116 mL/min/1.73 sq.m. Ages 30-39 = 107 mL/min/1.73 sq.m. Ages 40-49 = 99 mL/min/1.73 sq.m. Ages 50-59 = 93 mL/min/1.73 sq.m. Ages 60-69 = 85 mL/min/1.73 sq.m. Ages 70+ = 75 mL/min/1.73 sq.m. Chronic Kidney Disease: Less than 60 mL/min/1.73 square meters End Stage Renal Disease: Less than 15 mL/min/1.73 square meters Performed By: #### G FR, FT3, FT4, PSA, CBC, ADIFF, ANEU, MG, CMP, TSH #### [address] [address] GFR Non- 69 ml/min/1.73sqm Normal [facility] ([place]) Comment on above: Result Comment: GFR Population mean for , Non- Americans Ages 20-29 = 116 mL/min/1.73 sq.m. Ages 30-39 = 107 mL/min/1.73 sq.m. Ages 40-49 = 99 mL/min/1.73 sq.m. Ages 50-59 = 93 mL/min/1.73 sq.m. Ages 60-69 = 85 mL/min/1.73 sq.m. Ages 70+ = 75 mL/min/1.73 sq.m. Chronic Kidney Disease: Less than 60 mL/min/1.73 square meters End Stage Renal Disease: Less than 15 mL/min/1.73 square meters Performed By: #### G FR, FT3, FT4, PSA, CBC, ADIFF, ANEU, MG, CMP, TSH #### [address] [address] CMPon 01-10-2022 Albumin Level 4.0 G/dL Normal 3.4-4.8 [facility] ([place]) Comment on above: Performed By: #### G FR, FT3, FT4, PSA, CBC, ADIFF, ANEU, MG, CMP, TSH #### [address] [address] Albumin/Globulin [Mass ratio] 1.5 {ratio} Normal 1.1-2.5 [facility] ([place] Comment on above: Performed By: #### G FR, FT3, FT4, PSA, CBC, ADIFF, ANEU, MG, CMP, TSH #### [address] [address] ALP [Catalytic activity/Vol] 69 U/L Normal 40-135 [facility] ([place]) Comment on above: Performed By: #### G FR, FT3, FT4, PSA, CBC, ADIFF, ANEU, MG, CMP, TSH #### [address] [address] ALT [Catalytic activity/Vol] 26 U/L Normal 16-63 [facility] ([place] Comment on above: Performed By: #### G FR, FT3, FT4, PSA, CBC, ADIFF, ANEU, MG, CMP, TSH #### [address] [address] AST [Catalytic activity/Vol] 24 U/L Normal 10-40 [facility] ([place] Comment on above: Performed By: #### G FR, FT3, FT4, PSA, CBC, ADIFF, ANEU, MG, CMP, TSH #### [address] [address] Bili Total 1.0 mg/dL Normal 0.2-1.0 [facility] ([place]) Comment on above: Result Comment: Use of this assay is not recommended for patients undergoing treatment with eltrombopag due to the potential for falsely elevated results. Performed By: #### G FR, FT3, FT4, PSA, CBC, ADIFF, ANEU, MG, CMP, TSH #### [address] [address] BUN/Creatinine Ratio 16 ratio Normal 7-27 Count includes the [facility] ([place] Comment on above: Performed By: #### G FR, FT3, FT4, PSA, CBC, ADIFF, ANEU, MG, CMP, TSH #### [address] [address] Calcium [Mass/Vol] 8.9 mg/dL Normal 8.4-10.2 [facility] ([place] Comment on above: Performed By: #### G FR, FT3, FT4, PSA, CBC, ADIFF, ANEU, MG, CMP, TSH #### [address] [address] Chloride [Moles/Vol] 105 mmol/L Normal 98-107 Count includes the [facility] ([place] Comment on above: Performed By: #### G FR, FT3, FT4, PSA, CBC, ADIFF, ANEU, MG, CMP, TSH #### [address] [address] CO2 [Moles/Vol] 31 mmol/L Normal 23-31 [facility] ([place] Comment on above: Performed By: #### G FR, FT3, FT4, PSA, CBC, ADIFF, ANEU, MG, CMP, TSH #### [address] [address] Creatinine [Mass/Vol] 1.05 mg/dL Normal 0.70-1.30 [facility] ([place]) Comment on above: Performed By: #### G FR, FT3, FT4, PSA, CBC, ADIFF, ANEU, MG, CMP, TSH #### [address] [address] Electrolyte Balance 4.0 mEq/L Normal 4.0-15.0 [facility] ([place]) Comment on above: Performed By: #### G FR, FT3, FT4, PSA, CBC, ADIFF, ANEU, MG, CMP, TSH #### [address] [address] Globulin 2.6 G/dL Normal [facility] ([place] Comment on above: Performed By: #### G FR, FT3, FT4, PSA, CBC, ADIFF, ANEU, MG, CMP, TSH #### [address] [address] Glucose [Mass/Vol] 102 mg/dL Normal 83-110 [facility] ([place] Comment on above: Performed By: #### G FR, FT3, FT4, PSA, CBC, ADIFF, ANEU, MG, CMP, TSH #### [address] [address] Potassium [Moles/Vol] 4.7 mmol/L Normal 3.5-5.1 [facility] ([place] Comment on above: Performed By: #### G FR, FT3, FT4, PSA, CBC, ADIFF, ANEU, MG, CMP, TSH #### [address] [address] Sodium [Moles/Vol] 140 mmol/L Normal 136-145 [facility] ([place] Comment on above: Performed By: #### G FR, FT3, FT4, PSA, CBC, ADIFF, ANEU, MG, CMP, TSH #### [address] [address] Total Protein 6.6 G/dL Normal 6.4-8.2 [facility] ([place] Comment on above: Performed By: #### G FR, FT3, FT4, PSA, CBC, ADIFF, ANEU, MG, CMP, TSH #### [address] [address] Urea nitrogen [Mass/Vol] 17 mg/dL Normal 7-18 [facility] ([place] Comment on above: Performed By: #### G FR, FT3, FT4, PSA, CBC, ADIFF, ANEU, MG, CMP, TSH #### [address] [address] LABORATORYOrdered By: Courtney Cabrera on 01-10-2022 Albumin BCP dye [Mass/Vol] 4.0 G/dL Invalid Interpretation Code 3.4 - 4.8 G/dL AO ADM SS Albumin/Globulin [Mass ratio] 1.5 {ratio} Invalid Interpretation Code 1.1 - 2.5 ratio AO ADM SS ALP [Catalytic activity/Vol] 69 U/L Invalid Interpretation Code 40 - 135 U/L AO ADM SS ALT With P-5'-P [Catalytic activity/Vol] 26 U/L Invalid Interpretation Code 16 - 63 U/L AO ADM SS AST With P-5'-P [Catalytic activity/Vol] 24 U/L Invalid Interpretation Code 10 - 40 U/L AO ADM SS Bilirubin [Mass/Vol] 1.0 mg/dL Invalid Interpretation Code 0.2 - 1.0 mg/dL AO ADM SS Calcium [Mass/Vol] 8.9 mg/dL Invalid Interpretation Code 8.4 - 10.2 mg/dL AO ADM SS Chloride [Moles/Vol] 105 mmol/L Invalid Interpretation Code 98 - 107 mmol/L AO ADM SS Cholesterol [Mass/Vol] 192 mg/dL Invalid Interpretation Code 0 - 200 mg/dL AO ADM SS Cholesterol in HDL [Mass/Vol] 76 mg/dL Invalid Interpretation Code 40 - 60 mg/dL AO ADM SS Cholesterol in LDL [Mass/Vol] 100 mg/dL Invalid Interpretation Code 0 - 130 mg/dL AO ADM SS CO2 [Moles/Vol] 31 mmol/L Invalid Interpretation Code 23 - 31 mmol/L AO ADM SS Creatinine [Mass/Vol] 1.05 mg/dL Invalid Interpretation Code 0.70 - 1.30 mg/dL AO ADM SS Electrolyte Balance 4.0 mEq/L Invalid Interpretation Code 4.0 - 15.0 mEq/L AO ADM SS Globulin 2.6 G/dL Invalid Interpretation Code AO ADM SS Glucose [Mass/Vol] 102 mg/dL Invalid Interpretation Code 83 - 110 mg/dL AO ADM SS Potassium [Moles/Vol] 4.7 mmol/L Invalid Interpretation Code 3.5 - 5.1 mmol/L AO ADM SS Prostate specific Ag [Mass/Vol] 1.03 ng/mL Invalid Interpretation Code 0.00 - 4.00 ng/mL AO ADM SS Protein [Mass/Vol] 6.6 G/dL Invalid Interpretation Code 6.4 - 8.2 G/dL AO ADM SS Sodium [Moles/Vol] 140 mmol/L Invalid Interpretation Code 136 - 145 mmol/L AO ADM SS Triglyceride [Mass/Vol] 82 mg/dL Invalid Interpretation Code 0 - 150 mg/dL AO ADM SS Urea nitrogen [Mass/Vol] 17 mg/dL Invalid Interpretation Code 7 - 18 mg/dL AO ADM SS Urea nitrogen/Creatinine [Mass ratio] 16 ratio Invalid Interpretation Code 7 - 27 ratio AO ADM SS LABORATORYOrdered By: SYSTEM SYSTEM on 01-10-2022 GFR 84 ml/min/1.73sqm Invalid Interpretation Code AO Chemistry S GFR Non- 69 ml/min/1.73sqm Invalid Interpretation Code AO Chemistry S LIPIDon 01-10-2022 Cholesterol [Mass/Vol] 192 mg/dL Normal 0-200 [facility] ([place]) Comment on above: Result Comment: Chol esterol Reference Interval: Less than 200 Desirable 200-239 Borderline high risk 240 and above High risk Performed By: #### G FR, FT3, FT4, PSA, CBC, ADIFF, ANEU, MG, CMP, TSH #### [address] [address] Cholesterol in HDL [Mass/Vol] 76 mg/dL High 40-60 [facility] ([place] Comment on above: Performed By: #### G FR, FT3, FT4, PSA, CBC, ADIFF, ANEU, MG, CMP, TSH #### [address] [address] Cholesterol in LDL [Mass/Vol] 100 mg/dL Normal 0-130 [facility] ([place] Comment on above: Performed By: #### G FR, FT3, FT4, PSA, CBC, ADIFF, ANEU, MG, CMP, TSH #### [address] [address] Triglyceride [Mass/Vol] 82 mg/dL Normal 0-150 [facility] ([place] Comment on above: Result Comment: Trig lyceride Reference Interval: Less than 150 Normal 150-199 Borderline high risk 200-499 High risk 500 or higher Very high risk Performed By: #### G FR, FT3, FT4, PSA, CBC, ADIFF, ANEU, MG, CMP, TSH #### [address] [address] PSAon 01-10-2022 Prostate Specific Antigen 1.03 ng/mL Normal 0.00-4.00 [facility] ([place] Comment on above: Performed By: #### G FR, FT3, FT4, PSA, CBC, ADIFF, ANEU, MG, CMP, TSH #### [address] [address] Vital Signs Date Time Vital Sign Value Performing Clinician Facility 06-26-2023 08:30-0500 Body height 180.[address] Dee Albrecht Work Phone: [facility] 06-26-2023 08:30-0500 Body weight 80.[address] Dee Albrecht Work Phone: [facility] 06-22-2023 07:23-0500 Body mass index (BMI) [Ratio] 24.7 kg/m2 Dr. Dee Albrecht Work Phone: [facility] 06-11-2023 07:41-0500 Body mass index (BMI) [Ratio] 24.8 kg/m2 Dr. Dee Albrecht Work Phone: [facility] 06-11-2023 07:41-0500 Body temperature 97.3 [degF] Dr. Dee Albrecht Work Phone: [facility] 06-11-2023 07:41-0500 Body weight 80.[address] Dee Albrecht Work Phone: [facility] 06-11-2023 07:41-0500 Diastolic blood pressure 76 mm[Hg] Dr. Dee Albrecht Work Phone: [facility] 06-11-2023 07:41-0500 Heart rate 70 /min Dr. Dee Albrecht Work Phone: [facility] 06-11-2023 07:41-0500 Respiratory rate 16 /min Dr. Dee Albrecht Work Phone: [facility] 06-11-2023 07:41-0500 SaO2% (BldA) [Mass fraction] 96 % Dr. Dee Albrecht Work Phone: [facility] 06-11-2023 07:41-0500 Systolic blood pressure 104 mm[Hg] Dr. Dee Albrecht Work Phone: [facility] 05-11-2023 16:12-0500 Heart rate 68 /min Dr. Dee Albrecht Work Phone: [facility] 05-11-2023 16:10-0500 Diastolic blood pressure 48 mm[Hg] Dr. Dee Albrecht Work Phone: [facility] 05-11-2023 16:10-0500 Systolic blood pressure 81 mm[Hg] Dr. Dee Albrecht Work Phone: [facility] 05-11-2023 15:50-0500 Body height 180.[address] Dee Albrecht Work Phone: [facility] 05-11-2023 15:50-0500 Body mass index (BMI) [Ratio] 24.7 kg/m2 Dr. Dee Albrecht Work Phone: [facility] 05-11-2023 15:50-0500 Body weight 80.[address] Dee Albrecht Work Phone: [facility] 05-11-2023 15:50-0500 Respiratory rate 16 /min Dr. Dee Albrecht Work Phone: [facility] 04-03-2023 13:14-0400 Body height 180.[address] Dee Albrecht Work Phone: [facility] 04-03-2023 13:14-0400 Body mass index (BMI) [Ratio] 24 kg/m2 Dr. Dee Albrecht Work Phone: [facility] 04-03-2023 13:14-0400 Body weight 78.[address] Dee Albrecht Work Phone: [facility] 04-03-2023 13:14-0400 Diastolic blood pressure 73 mm[Hg] Dr. Dee Albrecht Work Phone: [facility] 04-03-2023 13:14-0400 Heart rate 64 /min Dr. Dee Albrecht Work Phone: [facility] 04-03-2023 13:14-0400 Respiratory rate 16 /min Dr. Dee Albrecht Work Phone: [facility] 04-03-2023 13:14-0400 Systolic blood pressure 113 mm[Hg] Dr. Dee Albrecht Work Phone: [facility] 02-06-2023 10:07-0400 Body height 180.[address] Dee Albrecht Work Phone: [facility] 02-06-2023 10:07-0400 Body mass index (BMI) [Ratio] 23.7 kg/m2 Dr. Dee Albrecht Work Phone: [facility] 02-06-2023 10:07-0400 Body weight 77.[address] Dee Albrecht Work Phone: [facility] 02-06-2023 10:07-0400 Diastolic blood pressure 71 mm[Hg] Dr. Dee Albrecht Work Phone: [facility] 02-06-2023 10:07-0400 Heart rate 84 /min Dr. Dee Albrecht Work Phone: [facility] 02-06-2023 10:07-0400 Respiratory rate 16 /min Dr. Dee Albrecht Work Phone: [facility] 02-06-2023 10:07-0400 Systolic blood pressure 103 mm[Hg] Dr. Dee Albrecht Work Phone: [facility] 09-04-2022 12:25-0400 Diastolic Blood Pressure Non-Invasive [address] SILVANA BRITO MD [facility] 09-04-2022 12:25-0400 Heart rate 62 /min DR SILVANA BRITO MD [facility] 09-04-2022 12:25-0400 Respiratory rate 18 /min DR SILVANA BRITO MD [facility] 09-04-2022 12:25-0400 Systolic Blood Pressure Non-Invasive [address] SILVANA BRITO MD [facility] 09-04-2022 12:20-0400 Diastolic Blood Pressure Non-Invasive [address] SILVANA BRITO MD [facility] 09-04-2022 12:20-0400 Heart rate 70 /min DR SILVANA BRITO MD [facility] 09-04-2022 12:20-0400 Respiratory rate 18 /min DR SILVANA BRITO MD [facility] 09-04-2022 12:20-0400 Systolic Blood Pressure Non-Invasive [address] SILVANA BRITO MD [facility] 09-04-2022 12:15-0400 Diastolic Blood Pressure Non-Invasive [address] SILVANA BRITO MD [facility] 09-04-2022 12:15-0400 Heart rate 72 /min DR SILVANA BRITO MD [facility] 09-04-2022 12:15-0400 Respiratory rate 18 /min DR SILVANA BRITO MD [facility] 09-04-2022 12:15-0400 Systolic Blood Pressure Non-Invasive [address] SILVANA BRITO MD [facility] 09-04-2022 12:01-0400 Body temperature 97.16 [degF] DR SILVANA BRITO MD [facility] 09-04-2022 11:55-0400 Heart rate 0 /min DR SILVANA BRITO MD [facility] 09-04-2022 11:55-0400 Respiratory Rate - Anes 13 br/min DR SILVANA BRITO MD [facility] 09-04-2022 11:50-0400 Heart rate 0 /min DR SILVANA BRITO MD [facility] 09-04-2022 11:50-0400 Respiratory Rate - Anes 0 br/min DR SILVANA RBITO MD [facility] 09-04-2022 11:25-0400 Body temperature 97.34 [degF] DR SILVANA BRITO MD [facility] 09-04-2022 11:22-0400 Body height [address] SILVANA BRITO MD [facility] 09-04-2022 [id number] Body weight 72.[address] SILVANA BRITO MD [facility] 09-04-2022 [id number] Body weight 23.21 kg/m2 DR SILVANA BRITO MD [facility] Encounters Encounter Date Encounter Type Care Provider Facility Start: 09-15-2024 End: 09-15-2024 ambulatory DEE ALBRECHT [place] Start: 03-25-2024 End: 03-25-2024 ambulatory [place] [place]: 02-08-2024 End: 02-08-2024 ambulatory Dee Albrecht Facility:[facility] Start: 10-23-2023 End: 10-23-2023 ambulatory [facility] [place] [place]: 06-26-2023 End: 06-26-2023 Admission to same day surgery center Dr. Dee Albrecht Work Phone: [facility]-Transportation Maintenance Supervisor/Special Procedures Work Phone: Start: 06-26-2023 End: 06-26-[address] Dee Albrecht Work Phone: [facility] Work Phone: Start: 06-15-2023 End: 06-15-2023 ambulatory [facility] Facility:[facility] Start: 06-11-2023 End: 06-11-[address] Dee Albrecht Work Phone: [facility] [place] Work Phone: Start: 06-11-2023 End: 06-11-2023 ambulatory Dee Albrecht Facility:[facility] Start: 06-08-2023 ambulatory Khoa [facility] Facility:[facility] Start: 05-30-2023 End: 05-30-[address] Dee Albrecht Work Phone: [facility] Work Phone: Start: 05-30-2023 End: 05-30-[address] Dee Albrecht Work Phone: [facility]Sleep Lab Work Phone: Start: 05-30-2023 End: 05-30-2023 ambulatory Dee Albrecht Facility:[facility] Start: 05-28-2023 Chart abstracting [facility] [place] Start: 05-11-2023 End: 05-11-[address] Dee Albrecht Work Phone: [facility] Work Phone: Start: 05-11-2023 End: 05-11-2023 ambulatory Dee Albrecht Facility:[facility] Start: 04-10-2023 End: 04-10-[address] Dee Albrecht Work Phone: [facility] Work Phone: Start: 04-10-2023 End: 04-10-[address] Dee Albrecht Work Phone: [facility]-Laboratory Work Phone: Start: 04-10-2023 End: 04-10-2023 ambulatory Dee Albrecht Facility:[facility] Start: 04-03-2023 End: 04-03-[address] Dee Albrecht Work Phone: [facility] Work Phone: Start: 04-03-2023 End: 04-03-2023 ambulatory Dee Albrecht Facility:[facility] Start: 03-14-2023 Non-patient / Non-visit Dr. Delmy Albrecht Work Phone: [facility] Work Phone: Start: 03-13-2023 Non-patient / Non-visit Dr. Delmy Albrecht Work Phone: [facility] Start: 03-09-2023 Non-patient / Non-visit Dr. Delmy Albrecht Work Phone: [facility] Start: 03-09-2023 End: 03-09-[address] Dee Albrecht Work Phone: [facility] Work Phone: Start: 03-09-2023 End: 03-09-[address] Dee [facility] Work Phone: Start: 02-06-2023 End: 02-06-[address] Dee Albrecht Work Phone: [facility] Work Phone: Start: 02-06-2023 End: 02-06-[address] Dee Albrecht Work Phone: [facility] Work Phone: Start: 01-02-2023 End: 01-03-[address] DEE ALBRECHT DO Facility:[facility] Start: 01-02-2023 End: 01-02-[address] DEE ALBRECHT DO [facility] Start: 09-04-2022 End: 09-04-[address] SILVANA BRITO MD Facility:[facility] Start: 09-04-2022 End: 09-04-[address] SILVANA BRITO MD [facility] Start: 01-10-2022 End: 01-11-[address] DEE ALBRECHT DO Facility:[facility] Start: 01-10-2022 End: 01-10-[address] DEE ALBRECHT DO [facility] Procedures Date Procedure Procedure Detail Performing Clinician Start: 06-11-2023 Plain chest X-ray Dr. Melida Albrecht Work Phone: Start: 03-09-2023 Radionuclide imaging of perfusion of myocardium under exercise stress Dr. Dee Albrecht Work Phone: Start: 09-04-[address] SILVANA BRITO MD Colonoscopy DR SILVANA COOMBS MD Lipoma (disorder) DR SILVANA BRITO MD Plan of Treatment Date Care Activity Detail Author Start: 06-26-2023 Patient discharge [facility] Start: 05-11-2023 Patient referral [facility] Work Phone: Start: 02-23-2023 Influenza vaccination Influenza Vaccine (#1) [facility] Start: 06-25-2022 Advance Directive Discussion Advance Directive Discussion [facility] Start: 06-25-2022 Depression Assessment Depression Assessment [facility] Start: 2014 Pneumococcal Vaccine: 65+ (1 - PCV) Pneumococcal Vaccine: 65+ (1 - PCV) [facility] Start: 2009 RSV Vaccine (1 - 1-dose 60+ series) RSV Vaccine (1 - 1-dose 60+ series) [facility] Start: 1999 Shingrix Vaccine (1 of 2) Shingrix Vaccine (1 of 2) [facility] Start: 1994 Cologuard (FIT-DNA) Cologuard (FIT-DNA) [facility] Start: 1994 Colonoscopy Colonoscopy [facility] Start: 1994 Colorectal Cancer Screening Colorectal Cancer Screening [facility] Start: [address] Colonography [facility] Start: 1994 Diabetes Screening Diabetes Screening [facility] Start: 1994 Fecal Occult Blood Fecal Occult Blood [facility] Start: 1994 Sigmoidoscopy Sigmoidoscopy [facility] Start: 1984 Lipid 1996 panel - Serum or Plasma Lipid Screening [facility] Start: 1968 Urine microalbumin profile DTaP,Tdap,Td Vaccine (1 - Tdap) [facility] Start: 1967 Hepatitis C Screening Hepatitis C Screening [facility] Start: 1949 Covid-19 Vaccine (#1) Covid-19 Vaccine (#1) [facility] Blood chemistry [facility] Catheterization of l eft heart [facility] CBC W Auto Different ial panel - Blood [facility] Patient referral [facility] Work Phone: Prothrombin time [facility] Radionuclide imaging of perfusion of myocardium under exercise stress [facility] XR Chest PA and Lateral [facility] Immunizations Immunization Date Immunization Notes Care Provider [facility] 01-02-2023 Pneumococcal conjuga te PCV20, polysaccharide [id number] conjugate, adjuvant, PF; Translations: [Prevnar 20] DR DEE ALBRECHT DO [facility] 07-11-2022 Pneumococcal conjuga te PCV20, polysaccharide [id number] conjugate, adjuvant, PF; Translations: [Prevnar 20] DR SILVANA BRITO MD [facility] 05-01-2022 tetanus toxoid, redu edi diphtheria toxoid, and acellular pertussis vaccine, adsorbed; Translations: [Boostrix (Tdap)] DR SILVANA BRITO MD [facility] 08-29-2021 COVID-19, mRNA, LNP- S, PF, 100 mcg or 50 mcg dose; Translations: [Moderna COVID-19 Vaccine] DR DEE ALBRECHT DO [facility] 07-05-2021 COVID-19, mRNA, LNP- S, PF, 100 mcg or 50 mcg dose; Translations: [Moderna COVID-19 Vaccine] DR DEE ALBRECHT DO [facility] 08-09-2015 tetanus and diphther ia toxoids, adsorbed, preservative free, for adult use (2 Lf of tetanus toxoid and 2 Lf of diphtheria toxoid) DR DEE ALBRECHT DO [facility] Payers Date Payer Category Payer Self-pay 2014 Private Health Insurance [id number] 2014 Private Health Insurance [employer] SUPPLEMENT [id number] 2014-Present [phone] [address] [place] [address] Indemnity [id number] 2014 Medicare [id number] 2014 Medicare MEDICARE MEDICAR E A AND B [id number] 2014-Present [phone] [address] [address] [place] [address] Medicare [id number] 1949 Unknown [id number] 2.840.1.103256.3.579. 2.627 1949 Unknown [id number] 2.840.1.766156.3.579. 2.627 1949 Unknown [id number] 2.840.1.581341.3.579. 2.627 1949 Unknown [id number] 2.16840.1.344494.3.579. 2.627 Private Health Insurance [employer] [id number] Unknown [id number] 2.16.840.1.851053.3.579. 2.462 Unknown [id number] 2.16.840.1.896500.3.579. 2.462 Unknown [id number] 2.16.840.1.441275.3.579. 2.462 Unknown [id number] 2.16.840.1.707159.3.579. 2.462 Unknown [id number] 2.16.840.1.307097.3.579. 2.462 Unknown [id number] 2.16.840.1.150790.3.579. 2.462 Unknown [id number] 2.16.840.1.020494.3.579. 2.462 Unknown [id number] 2.16.840.1.315015.3.579. 2.462 Unknown [id number] 2.16.840.1.468626.3.579. 2.462 Unknown [id number] 2.16.840.1.539444.3.579. 2.462 Unknown [id number] 2.16.840.1.939243.3.579. 2.462 Social History Date Type Detail Facility Start: 03-21-2021 Tobacco smoking status Never s moked tobacco (finding) [facility] Start: 1950 Sex Assigned At Male A [facility] Start: 02-06-2023 End: 06-26-2023 Tobacco smoking status COIS Unknown if ever smoked [facility] Start: 1950 Sex Assigned At Not on file [facility] Gender identity Not on file [facility] in Functional Status Date Assessment Result Facility 09-04-2022 Functional Status Dangle, Up ad juan [facility] 09-04-2022 Functional Status Maintained, More than 8 hours [facility] Mental Status Date Assessment Result Facility 09-04-2022 Mental Status Oriented x 4 [facility] 09-04-2022 Mental Status [facility] Clinical Notes 09-04-2022 to 06-15-2023 Note Date & Type Note Facility 06-15-2023 Note HNO ID: [id number] Author: Corazon Hayes MD Service: ? Author Type: Physician Type: Progress Notes Filed: 06/15/2023 6:23 PM Note Text: PRIMARY CARE PHYSICIAN: Dee Albrecht DO [address] [place] [address] REFERRING PHYSICIAN: Thomas Dumont NP [address] [address] Patient Care Team: Dee Albrecht DO as PCP - General (Family Medicine) Thomas Dumont as Nurse Practitioner (Cardiology) Khoa Goldstein MD as Specialty Brazer Induction (Cardiology) CHIEF COMPLAINT: Evaluation of arrhythmia HISTORY [...] He states he had sleep study recently ([facility]) and he does not have sleep [...] Cardiac Mother 85 suddenly, so unclear if LA or cardiac arrhythmia Hypertension Mother Cancer Mother [...] Electrocardiogram. 1. Per (more content not included)... [facility] 06-08-2023 Note [facility] Medical Records Department [address] [place] [address] History Physical Exam 06/08/23 1250 MR#: [id number] Acct: [id number] Name: ARACELI RENTERIA Rep #: [id number] : 1950 72 From: Khoa Goldstein MD PCP: Dr. Dee Albrecht, DO Status:[facility] Location: [facility] History and Physical Date of Admission: 06/26/23 This patient is here for Left heart catheterization. He continues to ride his bicycle 3 times a week, riding for 45 miles each time. He denies chest, arm, jaw, or neck discomfort. He denies palpitations. He denies bilateral lower extremity edema. He denies claudication. He states shortness of breath with activity such as increased exertion. He denies shortness of breath at rest, orthopnea, or PND. He denies chronic cough. He denies significant, sudden weight gain. He denies lightheadedness, dizziness, near- syncope, or syncope. He denies blood in urine, blood in stool, or epistaxis. He denies fever with chills. He denies myalgia. He denies fatigue. His exercise level has remained stable. Intake Vital Signs: See EMR Intake Visit Reasons: [facility] Crack Off Person Required: No Is patient in pain?: No Allergies No Known Allergies Allergy (Unverified 05/11/23 16:04) Medications See EMR [facility] Medical History Abnormal EKG Atrial fibrillation Bradycardia Irregular heart beat Pneumonia due to COVID-19 virus Surgical History History of colonoscopy Family History Mother Myocardial infarction, Onset Age: 86 Social History Smoking Status: Never smoker alcohol intake: never substance use type: does not use caffeine: Yes (occasionally) ROS Const Const: Positive for daytime sleepiness (2-3 naps per day) and other (stops breathing at night); Negative for fatigue, weakness, headache(s), frequent falls, difficulty sleeping or excessive sweating Eyes Eyes: Negative for loss of peripheral vision, transient loss of vision, blurry vision, double vision or tunnel vision ENT ENT: Negative for headache(s), dizziness, Nosebleed/epistaxis or balance problems Cardio Chest Pain: No Palpitations: No Edema: None Muscle aches with walking: None Resp Respiratory: Positive for SOB with activity (With increased exertion); Negative for SOB at rest, SOB orthopnea SOB lying down, Cough or paroxysmal nocturnal dyspnea GI GI: Negative nausea, vomiting, heartburn or black,tarry stools : Negative for hematuria Musc Musc: Negative for muscle aches/ myalgia, muscle weakness, joint pain or balance problems Skin Skin: Negative non-healing lesions, rash or unusual bruising Neuro Neuro: Negative for dizziness, lightheadedness, near syncope, syncope, frequent falls, headache(s), weakness, blurry vision, double vision or lack of coordination Daniel Hematologic/Lymphatic: Negative for easy bleeding or easy bruising Endo Endo: Negative for fatigue, excessive sweating or increased thirst/drinking Psych Psych: Negative for anxiety or depression Allergy Allergy/Immunology: Negative for hives and Negative for rash Cardiology Exam Const Appearance: cooperative, healthy appearing, comfortable and no acute distress Nutritional Appearance: average body habitus and well nourished Orientation: alert, awake and oriented x3 Head Head: normal to inspection Ears: hearing grossly normal bilaterally Nose: external nose normal Face and Sinus: face symmetric Mouth: moist mucous membranes Eyes General: appearance normal, both eyes and all related structures Eyelids: eyelids normal EOM: EOM intact bilaterally Neck Neck: normal visual inspection and no JVD Carotids: normal carotid upstroke Chest Chest inspection: normal inspection of the chest, symmetric chest movement and normal respiratory effort; Negative cough Auscultation: Bilateral: Clear to Auscultation Cardio Rate: regular rate Rhythm: regular rhythm Heart sounds: S1 normal and S2 normal; Negative rub, gallop or murmur GI GI: normal to inspection Neuro General: patient alert, patient awake, patient oriented x3 and CN's II-XI intact bilaterally Skin Skin: no rashes or lesions noted Extremities Pulses: Normal: Right Posterior Tibial Pulse, Left Posterior Tibial Pulse, Right Radial Pulse and Left Radial Pulse Lower Extremity Edema: None: Bilateral Psych Psychological: normal affect Supplemental Info Supplemental Information Stress Test from 03/09/2023: Impression: 1. Technically adequate (percent predicted maximal heart rate greater than 85%) exercise tolerance test 2. Peak exercise ECG with no ischemic changes 3. Rest and stress SPECT Cardiolite nuclear imaging demonstrate possible mild inferior (more content not included)... [facility] 09-04-2022 Hospital Discharge instructions Patient Education 09/04/2022 12:05:48 Colonoscopy, Adult, [...] a slower pace than normal. ?Eat soft, tsri-wr-kfrslz foods. Take zusw-ony-zloptkl or prescription medicines only as told by [...] 01/23/2005 Document Revised: 04/03/2018 Document Reviewed: 08/22/2016 [employer] Patient Education 2020 [employer]. 09/04/2022 12:05:43 Monitored Anesthesia Care, Care After [...] before eating solid foods. General instructions Take cneu-hfq-wlectyj and prescription medicines only as told by [...] 10/01/2016 Document Revised: 09/09/2018 Document Reviewed: 10/01/2016 [employer] Patient Education 2020 [employer]. Follow Up Care 09/01/2022 08:56:05 With:SILVANA BRITO Address: [address] [place] [phone]- [phone] Business (1) When: Unknown Comments:OFFICE WILL CALL WITH BIOPSY RESULTS. [facility] 09-04-2022 Evaluation + Plan note Extrac kelly from: Title:Clinical Document Author:SILVANA BRITO Date:09/04/22 [facility] ADMISSION HISTORY AN D PHYSICIAL CHIEF COMPLAINT: HISTORY OF PRESENT ILLNESS: REVIEW OF SYSTEMS: ACTIVE PROBLEMS: (8) Bradycardia (14892241) Elevated liver enzymes (8556740189) Hyperglycemia (930859101) Need for vaccination (2571361350) Screening for colon cancer (360709051) Screening for metabolic disorder (917642162) Screening for prostate cancer (960534911) SOB - Shortness of breath (027220295) MEDICATIONS: Active Inpt Meds: None Active PRN Meds: None One Time Meds: None Active IV Meds: Lactated Ringers Infusion 1,000 mL (LR 1,000 mL) Start: 09/04/22 11:20:00 EDT, Rate: 50 mL/hr, 09/04/22 11:20:00 EDT ALLERGIES: (1) NKA FAMILY HISTORY: SOCIAL HISTORY: PHYSICAL EXAM: VITALS: KkazgwBwrtDZXblvlTKTkI6BFF3YlroNt(kg) 09/04 11:2536.3--326860HC31/13 72.7 24 Hr Tmax: 36.3 at 09/04 [...] Date:01/02/2023 09:00:00 AM Scheduled Provider:DEE ALBRECHT DO Location:[facility] Appointment Type: OV Future Scheduled Tests Laboratory* Prostate Specific Antigen 01/08/23 * A1C Hemoglobin 01/08/23 * Complete Metabolic Panel 01/08/23 [facility] 03-13-2023 Summary of episode note Discharge Instructions Thank you for allowing [facility] to assist you with your healthcare needs. The following is importantdischarge information regarding your hospital visit. Your Care Team DEE ALBRECHT DO What to do next Scheduled Follow-Up Appointments [facility]00 AM EDT DEE ALBRECHT DO [facility] [place] [address] [place] [address] Follow Up Appointments Follow Up with SILVANA BRITO When Why: OFFICE WILL CALL WITH BIOPSY RESULTS. Where: [address] [facility] [address] [place] [address]- [phone] Business (1) The Following Activity and Diet [...] slower pace than normal. ? Eat soft, nkot-ac-afxhyn foods. Take bqih-bxk-tbagqlt or prescription medicines only as told by [...] 01/23/2005 Document Revised: 04/03/2018 Document Reviewed: 08/22/2016 [employer] Patient Education 2020 [employer] Monitored Anesthesia Care, Care After These instructions [...] before eating solid foods. General instructions Take htre-ltx-nihnvao and prescription medicines only as told by [...] 10/01/2016 Document Revised: 09/09/2018 Document Reviewed: 10/01/2016 [employer] Patient Education 2020 [employer] Additional Information VACCINATE! IT SAVES LIVES! Members of the community who have not yet received the COVID-19 vaccine and would like to receive it can visit one of [facility] vaccine clinics. There are many vaccine clinic locations within the [facility]. For locations and available times, please visit [email or web address].[place].gov/. It is important to note that some COVID mobile vaccine clinics are held outdoors and may be canceled in rainy or stormy conditions. To learn more about pediatric vaccinations (ages 5-11), we invite you to visit the [facility] webpage. https://www.[email or web address]/pages/3399-Cqbyp-Xdowtvtfjif-Mqarvijxob-Lykbq-Hpz stions.htmlTo learn more about the COVID-19 vaccine, we invite you to visit the CDC website for a list of frequently asked questions. https://www.cdc.gov/coronavirus/2019-ncov/vaccines/faq.html [employer] Patient Portal Access Instructions: Stay connected with your healthcare team and access your personal medical information anytime with the [employer] Patient Portal.If you would like a full copy of your medical records, please contact the [facility] Medical Records Department, Sunday through Sunday between 8a.m. and 4:30p.m. Please follow the directions below to access the portal: 1.Access the email account you provided upon registration to the [facility].2.Look for an invitation email from [facility].3.Open the email and access the invitation link: Accept Invitation to [facility]4.Fill in the required burk to create your account. Sign into www.[employer] with your username and password that you [...] you will allow to register on the [employer] Patient Portal for access to your information. You can also access the [employer] Patient Portal on the [employer] sandrine. Simply click on Health Records under [employer] and then click on the [employer] logo. HOW TO SAFELY DISPOSE OF PRESCRIPTION [...] Call your local pharmacy or go to [email or web address] to find one close to you.3.Make use of household items: Use cat litter or old coffee grounds to dispose medications if other options arenot available. Mix your drugs with these household products, seal them in an airtight container andthrow it into the garbage. Call [facility]: [phone] to be sure your drugs can be [...] been reviewed and explained to me and IMYRA LEON M understand my current condition and have read and understand these discharge instructions. I have received a written copy of the plan/instructions. If I have questions, I am aware that I should contact my doctor. Patient/Cattle Dehorner Signature: Date/Time: Relationship to Patient: Witness Name/Signature: Date/Time: [facility]03-13-2023 Anesthesiology Consult note Patient: ARACELI RENTERIA Age: [...] by TERESA VIEYRA on 09/04/2022 11:59 AM [facility]03-13-2023 Anesthesiology Consult note Patient: ARACELI RENTERIA Age: [...] Problem list: Medical Bradycardia / SNOMED CT 58855602 / Confirmed Elevated liver enzymes / SNOMED CT 4553173649 / Confirmed Hyperglycemia / SNOMED CT 068350841 / Confirmed Screening for prostate cancer / SNOMED CT 985879052 / Confirmed Screening for metabolic disorder / SNOMED CT 828738960 / Confirmed Screening for colon cancer / SNOMED CT 994792444 / Confirmed Need for vaccination / SNOMED CT 6109373280 / Confirmed, Active Problems (8) Bradycardia Elevated liver enzymes Hyperglycemia Need for vaccination Screening for colon cancer Screening for metabolic disorder Screening for prostate cancer SOB - Shortness of breath Histories Past Medical History: Resolved None (601145281): Resolved. Acute hypoxic respiratory failure (5608918791): Resolved. Pneumonia due to COVID-19 virus (3419246677): Resolved. Generalized weakness (02793830): Resolved. Family History: Entire family history is negative. Procedure history: Colonoscopy (926677734) on 09/04/2022 at 72 Years. Colonoscopy (523738148). Lipoma (932572515). Social History Social & Psychosocial Habits Alcohol [...] Resp Rate 18 br/min (SEP 04 11:25) GBD380 mmHg (SEP 04 11:25) DBP72 mmHg (SEP 04 11:25) BMI23.21 (SEP 04 11:22) Measurements from flowsheet : Measurements 09/04/2022 11:22 EDT Height 177 cm Admission Weight 72.7 kg Weight Method Stated [place] Body Weight 72.28 kg BSA Admission 1.89 [...] available , Lab results 09/04/2022 11:44 EDT [place] History and Physical 09/04/2022 11:41 EDT SN [...] Surgeon SN - CAt - Role Performed Head Irrigator 1 SN - CAt - Role Performed WHITING CAN WORKER SN - CAt - Role Performed Outdoor Advertising Leasing Agent 09/04/2022 11:38 EDT Anesthesia Consent Signed Yes [...] Palpation Non-Tender Skin Temperature Warm Skin Description [place], Dry Skin Integrity Intact Neurological Symptoms Patient [...] EDT Designated Person #1 We May Share [facility] Designated Person #1 We May Share [facility] Designated Person #1 Relationship Spouse Height 177 cm Admission Weight 72.7 kg Weight Method Stated [place] Body Weight 72.28 kg BSA Admission 1.89 [...] Method Explanation, Printed materials Preferred Written Language Nepali Preferred Spoken Language Nepali Pre Procedure/Surgery Education Appropriate expectations Procedure/Surgical Teaching Evaluation Verbalizes/Nonverbally indicates understanding Information Given by Patient Patient's Current Physicians DR. ALBRECHT Discharge To, Anticipated Home with family care Prev Test Positive/Diagnosis w/COVID-19 Yes Previous COVID-19 Positive Date 2021 Current Quarantine/Isolated any Illness No Any Contact with Sick Animals/Birds No Traveled Anywhere in Last 30 Days No N/A Personal Devices, Patient Valuables None Admission Note-Nursing Procedure/Therapy Intake . Assessment and Plan [place] [employer] Anesthesiologists (ASA) physical status classification: Class II. Anesthetic Preoperative Plan Anesthetic technique: MAC. Postoperative pain management: Per surgeon. Informed consent: signed by patient. Digitally Signed by TERESA VIEYRA on 09/04/2022 11:46 AM [facility]03-13-2023 Note [facility] ADMISSION HISTORY AND PHYSICIAL CHIEF COMPLAINT: HISTORY OF PRESENT ILLNESS: REVIEW OF SYSTEMS: ACTIVE PROBLEMS: (8) Bradycardia (60681817) Elevated liver enzymes (1259558139) Hyperglycemia (928327781) Need for vaccination (6188708012) Screening for colon cancer (838927343) Screening for metabolic disorder (583339651) Screening for prostate cancer (322931742) SOB - Shortness of breath (120075379) MEDICATIONS: Active Inpt Meds: None Active PRN Meds: None One Time Meds: None Active IV Meds: Lactated Ringers Infusion 1,000 mL (LR 1,000 mL) Start: 09/04/22 11:20:00 EDT, Rate: 50 mL/hr, 09/04/22 11:20:00 EDT ALLERGIES: (1) NKA FAMILY HISTORY: SOCIAL HISTORY: PHYSICAL EXAM: VITALS: ToqgykJcltHIWbocsMWFaY2KBU0NmwaZb(kg) 09/04 11:2536.3--809751NN03/13 72.7 24 Hr Tmax: 36.3 at 09/04 [...] SILVANA BRITO MD on 09/04/2022 11:44 AM [facility] Future Appointments Appointment Date:07/11/2022 09:00:00 AM Scheduled Provider:DEE ALBRECHT DO Location:[facility] Appointment Type:PC OV [facility] Evaluation + Plan note Future Scheduled Tests Laboratory* Prostate Specific Antigen 01/08/23 * A1C Hemoglobin 01/08/23 * Complete Metabolic Panel 01/08/23 [facility] Evaluation note* Diagnosis Onset Date Resolution Status Abnormal EKG chronic Atrial fibrillation 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 [facility] Work Phone: Evaluation note* Diagnosis Irregular heart beat- Primary Cardiac dysrhythmia, unspecified Abnormal EKG Nonspecific abnormal electrocardiogram (ECG) (EKG) Atrial fibrillation, unspecified type (HCC) Bradycardia Other specified cardiac dysrhythmias Pneumonia, bacterial Bacterial pneumonia, unspecified Mitral valve insufficiency, unspecified etiology Tricuspid valve insufficiency, unspecified etiology Hypersomnolence Hypersomnia, unspecified [facility] Onset Date Resolution Status Abnormal EKG chronic Atrial fibrillation chronic Abnormal nuclear stress test acute Atrial fibrillation chronic Mitral regurgitation chronic Tricuspid regurgitation 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 Abnormal nuclear stress test acute Hypersomnolence acute Atrial fibrillation chronic Mitral regurgitation chronic Tricuspid regurgitation 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 [facility] Work Phone: Evaluation note* Diagnosis Onset Date Resolution Status Abnormal nuclear stress test acute Atrial fibrillation chronic Mitral regurgitation chronic Tricuspid regurgitation 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 Abnormal nuclear stress test acute Hypersomnolence acute Atrial fibrillation chronic Mitral regurgitation chronic Tricuspid regurgitation 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 Sleep concern noneactive [facility] Work Phone: Hospital course Narrative No data available for this section [facility] Hospital Discharge instructions No data available for this section [facility] Progress note No data available for this section [facility] Summary Purpose Family History No Family History Records Found Relationship Condition Age at Onset Recorded Date/T ugo mother Myocardial infarction 85 Advance Directives No Advanced Directives Records Found Advance Directive Response Recorded Date/ Time Advance Directives No June 26, 2023 8:30am Living Will No June 26 8:30am Power of Stock Puller No June 26 8:30am Chief Complaint and Reason for Visit Chief Complaint ABN EKG (TRENA) E-ORDER Reason for Visit Abnormal EKG Atrial fibrillation Chief Complaint ABN EKG (TRENA) E-ORDER Abnormal electrocardiogram [ECG] [EKG] Abnormal electrocardiogram [ECG] [EKG] Amb Documentation Reason for Visit Abnormal EKG Atrial fibrillation Chief Complaint ABN EKG (TRENA) E-ORDER Abnormal electrocardiogram [ECG] [EKG] Abnormal electrocardiogram [ECG] [EKG] Amb Documentation 8 W FU E ORDER Reason for Visit Abnormal EKG Atrial fibrillation Abnormal nuclear stress test Atrial fibrillation Mitral regurgitation Tricuspid regurgitation Chief Complaint ABN EKG (TRENA) E-ORDER Abnormal electrocardiogram [ECG] [EKG] Abnormal electrocardiogram [ECG] [EKG] Amb Documentation 8 W FU E ORDER Per JR: STOPBANG criteria for MATILDE L.L. Hypersomnia, unspecified Reason for Visit Abnormal EKG Atrial fibrillation Abnormal nuclear stress test Atrial fibrillation Mitral regurgitation Tricuspid regurgitation Abnormal nuclear stress test Hypersomnolence Atrial fibrillation Mitral regurgitation Tricuspid regurgitation Chief Complaint Abnormal electrocard iogram [ECG] [EKG] Abnormal electrocardiogram [ECG] [EKG] Amb Documentation 8 W FU E ORDER Per JR: STOPBANG criteria for MATILDE L.L. Hypersomnia, unspecified Sleep problems ABN STRESS SOB Reason for Visit Abnormal nuclear str ess test Atrial fibrillation Mitral regurgitation Tricuspid regurgitation Abnormal nuclear stress test Hypersomnolence Atrial fibrillation Mitral regurgitation Tricuspid regurgitation Sleep concern Additional Source Comments Care Team (unrecognized sect ion and content) Care Team Personnel Name: DEE ALBRECHT DO Position: P4 Physician - Primary Care Med Service: Active Provider Member Role: Primary Care Physician Address: Address: [address] [place] [address] Care Team Related Persons Name: JACK RENTERIA Address: Home [address] [place], [place] [id number] [place] Care Team Personnel Name: DEE ALBRECHT DO Position: P4 Physician - Primary Care Member Role: Primary Care Physician Address: Address: [address] [facility] [place] [address] [place] Care Team Related Persons Name: JACK RENTERIA Address: Home [address] [place], [place] [id number] [place] (unrecognized sect ion and content) No Status Records FoundNo Status Records FoundNo Status Records FoundNo Status Records Found INFORMATION SOURCE (unrecogn ized section and content) DATE CREATED AUTHOR 01/03/2023 [facility] ([place]) DATE CREATED AUTHOR AUTHOR'S ORGANIZ ATION 2023 [facility] DATE CREATED AUTHOR AUTHOR'S ORGANIZ ATION 03/27/2024 [facility] DATE CREATED AUTHOR AUTHOR'S ORGANIZ ATION 09/18/2024 [facility] Patient Care team informatio n (unrecognized section and content) Team Status: Active Member Role Status Dates Dr. Dee Albrecht , DO Primary Care Provider Activ e Team Status: Active Member Role Status Dates Dr. Dee Albrecht , DO Primary Care Provider Activ e Dr. Khoa Goldstein MD Attending Provider , Referring Provider, Other Provider Active Team Status: Active Member Role Status Dates Dr. Dee Albrecht DO Primary Care Provider Activ e Dr. Khoa Goldstein MD Attending Provider Active Team Status: Active Member Role Status Dates Dr. Dee Albrecht , DO Primary Care Provider Activ e Thomas Dumont ORAL COMMUNICATION INSTRUCTOR, ORAL COMMUNICATION INSTRUCTOR-C Attending Provider Active Team Status: Inactive Member Role Status Dates Dr. Dee Albrecht , DO Primary Care Provider, Refe rring Provider Active Dr. Khoa Goldstein MD Attending Provider Active Team Status: Inactive Member Role Status Dates Dr. Dee Albrecht , DO Primary Care Provider, Refe rring Provider Active Thomas Dumont ORAL COMMUNICATION INSTRUCTOR, ORAL COMMUNICATION INSTRUCTOR-C Attending Provider Active Team Status: Inactive Member Role Status Dates Dr. Dee Albrecht , DO Primary Care Provider, Refe rring Provider Active Dulce Henley ORAL COMMUNICATION INSTRUCTOR, ORAL COMMUNICATION INSTRUCTOR-C Attending Provider Active Team Status: Inactive Member Role Status Dates Dr. Dee Albrecht , DO Primary Care Provider Activ e Dr. Khoa Goldstein MD Attending Provider, Referring Pr ramóner Active Team Status: Inactive Member Role Status Dates Dr. Dee Albrecht , DO Primary Care Provider Activ e Thomas Dumont ORAL COMMUNICATION INSTRUCTOR, ORAL COMMUNICATION INSTRUCTOR-C Attending Provider, Referring Pro vider Active Goals (unrecognized section and content) Goals may be documented in a n alternate section Source Comments (unrecognize d section and content) In the event this informatio n is protected by the Federal Confidentiality of Alcohol and Drug Abuse Patient Records regulations: The Federal rules restrict any use of the information to criminally investigate or prosecute any alcohol or drug abuse patient.[facility] FOR RECORDS PERTAINING TO PATIENTS WHO ARE [...] BE BASED ON THE PRIMARY CLINICAL RECORDS. [employer] provides no warranty or guarantee of the accuracy or completeness of information in this document.
[2025-05-20 11:45] LABS: AST(SGOT) 25 U/L (<=37); Alanine Aminotransfer ALT/SGPT 15 U/L (<=46); Albumin, Serum 4.1 g/dL (3.4-4.8); Alkaline Phosphatase 79 U/L (40-129); Anion Gap 8 (5-15); BUN 15 mg/dL (4-19); BUN/Creat Ratio 14.9 RATIO (10-20); Calcium,Total 8.8 mg/dL (7.6-11.0); Carbon Dioxide 25.8 mmol/L (21.0-32.0); Chloride 107 mmol/L (98-108); Globulin 2.4 g/dL (2.2-4.2); Glucose 111 mg/dL (70-99); Potassium 4.8 mmol/L (3.3-5.1)
== END | disposition home or self-care (01) ==
LOC: LAB 10:05
PROVIDERS: Referring Provider Internal Medicine Cardiovascular Disease; Visit Provider Internal Medicine Cardiovascular Disease
DX: I25.10 Atherosclerotic heart disease of native coronary artery without angina pectoris (principal); I48.19 Other persistent atrial fibrillation; I34.0 Nonrheumatic mitral (valve) insufficiency; I07.1 Rheumatic tricuspid insufficiency; E78.5 Hyperlipidemia, unspecified
CPT/HCPCS: 36415; 80053; 85027

== ENCOUNTER → 2025-06-09 | Outpatient (CLI) | payer MEDICARE, OTHER, SELFPAY ==
--- NOTE | 2025-06-09 08:36 | ECHOD_ITS ---
Reason For Study : CAD/ASHD Procedure This was a 2D Doppler, Color Flow transthoracic echocardiogram. Exam performed in department. Left Ventricle Normal size and thickness. The left ventricular ejection fraction is 65 %. Unable to assess diastolic dysfunction due to arrhythmia. Right Ventricle Normal right ventricle. Atria There is moderate biatrial dilatation. Mitral Valve Trivial mitral valve insufficiency. Tricuspid Valve Mild-Moderate (1-2+) tricuspid valve insufficiency. Normal pulmonary artery pressure. Aortic Valve Trisinus/trileaflet aortic valve. Pulmonic Valve The pulmonic valve is not well visualized. Trivial pulmonic valve insufficiency. Great Vessels Normal sized aortic root. Pericardium/Pleural No pericardial effusion. MMode/2D Measurements & Calculations LVIDd: 4.2 cm IVSd: 1.0 cm Ao root diam: 3.3 cm LVIDs: 2.8 cm LVPWd: 1.00 cm RVDd: 3.7 cm FS: 33.8 % LAV(MOD-bp): 70.0 ml LVAd ap4: 24.5 cm2 SV(MOD-sp4): 36.6 ml LAV(MOD-bp) Indexed: 35.6 ml/m2 LVLd ap4: 7.6 cm SI(MOD-sp4): 18.6 ml/m2 LAV(MOD-sp2): 93.5 ml EDV(MOD-sp4): 65.3 ml LAV(MOD-sp4): 57.1 ml EDV(sp4-el): 67.1 ml LVAs ap4: 15.3 cm2 LVLs ap4: 6.8 cm ESV(MOD-sp4): 28.8 ml ESV(sp4-el): 29.1 ml EF(MOD-sp4): 56.0 % EF(sp4-el): 56.7 % SV(sp4-el): 38.1 ml LA A4 area: 22.0 cm2 LA dimension(2D): 3.9 cm RA A4 area: 25.0 cm2 TAPSE: 2.2 cm Doppler Measurements & Calculations MV E max emmett: 85.9 cm/sec Lat Peak E' Emmett: 13.1 cm/sec Med Peak E' Emmett: 9.8 cm/sec E/E' lat: 6.5 E/E' med: 8.8 Ao V2 max: 133.2 cm/sec LV V1 max: 96.5 cm/sec PA V2 max: 82.7 cm/sec Ao max P.1 mmHg LV V1 max P.7 mmHg Ao V2 mean: 92.2 cm/sec LV V1 mean P.9 mmHg Ao mean P.9 mmHg LV V1 mean: 63.2 cm/sec Ao V2 VTI: 28.8 cm LV V1 VTI: 20.4 cm AV (velocity ratio): 0.71 TR max emmett: 218.0 cm/sec TR max P.0 mmHg ECHO/Echo Complete Interpretation Summary The left ventricular ejection fraction is 65 %. Unable to assess diastolic dysfunction due to arrhythmia. There is moderate biatrial dilatation. Mild-Moderate (1-2+) tricuspid valve insufficiency. Ordering Physician: Khoa Goldstein Referring Physician: Adele Prabhakar Performed By: Katarzyna Dumont, KIM, RVT
== END | disposition home or self-care (01) ==
LOC: CVS 08:36
PROVIDERS: Referring Provider Internal Medicine Cardiovascular Disease; Visit Provider Internal Medicine Cardiovascular Disease
DX: R94.31 Abnormal electrocardiogram [ECG] [EKG] (principal); I48.19 Other persistent atrial fibrillation; I25.10 Atherosclerotic heart disease of native coronary artery without angina pectoris; E78.5 Hyperlipidemia, unspecified; I34.0 Nonrheumatic mitral (valve) insufficiency; I07.1 Rheumatic tricuspid insufficiency
CPT/HCPCS: 93306